=== PATIENT | male | born 1955 | race Caucasian/White ===

== ENCOUNTER 2022-01-24 12:16 | Emergency (ER) | payer OTHER, MEDICARE, SELFPAY ==
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
[2022-01-24 12:21] VITALS: BP 157/85; PULSE 82; RESP 18; TEMP 36.8; O2SAT 97
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
[2022-01-24 13:45] VITALS: BP 136/89; PULSE 76; RESP 18; TEMP 36.6; O2SAT 95
--- NOTE | 2022-01-24 17:35 | NUR.NOTE ---
Nursing Note: referral to cm for pcp
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
== END 2022-01-24 13:54 | disposition home or self-care (01) ==
LOC: ER 14:20
PROVIDERS: Emergency Provider Physician Assistant
DX: S29.9XXA Unspecified injury of thorax, initial encounter (principal); M79.7 Fibromyalgia; V89.2XXA Person injured in unspecified motor-vehicle accident, traffic, initial encounter; Y92.410 Unspecified street and highway as the place of occurrence of the external cause
CPT/HCPCS: 80053; 86900; 86901; 93005; 99284; 71046; 84484; 85025; 93010; 99285

== ENCOUNTER 2022-04-16 11:34 | Inpatient (IN) | payer OTHER, MEDICARE, SELFPAY ==
[2022-04-16] VITALS (13 sets, daily range): BP systolic 128–157; BP diastolic 82–97; PULSE 79–92; RESP 14–21; TEMP 36.2–37.4; O2SAT 97–98
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
--- NOTE | 2022-04-16 11:45 | RT.EKG_ITS ---
APPROVED REPORT Exam: Resting ECG Reason for Exam: Dizziness Patient Location: E HR:81 bpm ECG Measurements Heart Rate 81 AXIS OK 150 P 49 QRSd 94 QRS 26 QT 361 T 50 QTc 420 Conclusion Sinus rhythm...normal P axis, V-rate 60- 99 Normal [place] I have reviewed and interpreted ECG and agree with software generated interpretation. Normal Electrocardiogram
--- NOTE | 2022-04-16 12:00 | DI.MRI_ITS ---
Exam(s) MR BRAIN WO EXAM: MR BRAIN WO CLINICAL HISTORY: vertigo, unstable gait, double vision TECHNIQUE: Multiplanar multisequence MRI of the brain was performed. COMPARISON: CT CT HEAD - STROKE PROTOCOL from 04/16/2022 FINDINGS: The examination is limited due to patient motion artifact. VENTRICLES AND EXTRA AXIAL SPACES: Normal in size and morphology for the patient's age. MIDLINE SHIFT: None. CEREBRAL PARENCHYMA: No focus of restricted diffusion to suggest acute infarct. No space-occupying le kerrie identified. There are few areas of hyperintense signal seen in the white matter on the FLAIR and T2 weighted images consistent with small vessel ischemic disease. HEMORRHAGE: None. BRAINSTEM/CEREBELLUM: Normal. CALVARIUM: Normal. VISUALIZED PARANASAL SINUSES/MASTOIDS:Clear. [place]: Normal flow void. PIT[place]: Unremarkable. OTHER FINDINGS: None. IMPRESSION: 1. No acute intracranial process. No evidence of an acute infarct. 2. Findings were discussed with Dr. Ulrich on 04/16/2022. DATA REPOSITORY:
--- NOTE | 2022-04-16 12:00 | DI.CT_ITS ---
Exam(s) CT HEAD - STROKE PROTOCOL EXAM: CT HEAD - STROKE PROTOCOL CLINICAL HISTORY: vertigo, gait instability, double vision. TECHNIQUE: Imaging Protocol: Axial computed tomography images with coronal and sagittal reformatted images were created and reviewed COMPARISON: No exams were available for comparison FINDINGS: Ventricles and Extra axial spaces: Normal in size and morphology for the patient's age. Hemorrhage: None. Cerebral parenchyma: No acute territorial infarct is identified. 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 Midline shift: None. Brainstem/Cerebellum: Normal. Calvarium: Normal. Visualized Paranasal sinuses/Mastoids: Clear. Soft Tissues: Unremarkable. IMPRESSION: 1. No acute intracranial process. 2. Findings were discussed with Dr. Ulrich at 12:30 p.m. on 04/16/2022. RADIATION DOSE DELIVERED: 840.02mGy.cm Total DLP DATA REPOSITORY: All CT scans at this facility are submitted to the National Radiology Data Registry (NRDR) Dose Index Registry (DIR) with the [employer] (ACR). RADIATION OPTIMIZATION: All CT scans at this facility use at least one of these dose optimization te chniques: automated exposure control; mA and/or kV adjustment per patient size (includes targeted exa ms where dose is matched to clinical indication); or iterative reconstruction.
--- NOTE | 2022-04-16 12:00 | DI.MRI_ITS ---
Exam(s) MR ANGIO NECK WO EXAM: MR ANGIO NECK WO CLINICAL HISTORY: vertigo, unstable gait, double vision. TECHNIQUE: Multiplanar multisequence MRA of the Neck was performed. COMPARISON: CT brain from 04/16/2022. FINDINGS: Common Carotid: Right: No dissection, occlusion or significant stenosis. Left: No dissection, occlusion or significant stenosis. External Carotid: Right: No evidence of occlusion or significant stenosis. Left: No evidence of occlusion or significant stenosis. Internal Carotid: Right: No dissection, occlusion or significant stenosis. Left: No dissection, occlusion or significant stenosis. Vertebral Artery: Right: No dissection, occlusion or significant stenosis. Left: No dissection, occlusion or significant stenosis. The visualized paraspinal soft tissues are unremarkable. IMPRESSION: 1. No evidence of dissection, occlusion or significant stenosis. 2. Findings were discussed with Dr. Ulrich on 04/16/2022. DATA REPOSITORY:
--- NOTE | 2022-04-16 12:00 | DI.MRI_ITS ---
Exam(s) MR ANGIO BRAIN WO CLINICAL HISTORY: vertigo, unstable gait, double vision. TECHNIQUE: Multiplanar multisequence MRA of the brain was performed. COMPARISON: Comparison CT scan of the brain from 04/16/2022. FINDINGS: Carotid Arteries: No aneurysm, occlusion or significant stenosis. Anterior Cerebral Arteries: Right: No aneurysm, occlusion or significant stenosis. Left: No aneurysm, occlusion or significant stenosis. Middle Cerebral Arteries: Right: No aneurysm, occlusion or significant stenosis. Left: No aneurysm, occlusion or significant stenosis. Posterior Cerebral Arteries: Right: No aneurysm, occlusion or significant stenosis. Left: No aneurysm, occlusion or significant stenosis. Vertebral Arteries: Right: No aneurysm, occlusion or significant stenosis. Left: No aneurysm, occlusion or significant stenosis. Basilar Artery: No aneurysm, occlusion or significant stenosis. IMPRESSION: 1. No evidence of occlusion or significant stenosis on the MR angiography of the brain. 2. Findings were discussed with Dr. Ulrich on 04/16/2022. DATA REPOSITORY:
[2022-04-16 12:10] LABS: Abs Immature Grans 0.02 10^3/uL (0.0-0.06); Absolute Basophil Count 0.05 10^3/uL (0.0-0.2); Absolute Eosinophil Count 0.16 10^3/uL (0.0-0.7); Absolute Lymphocyte Count 1.56 10^3/uL (1.2-3.4); Absolute Monocyte Count 0.74 10^3/uL (0.1-0.8); Absolute Neutrophil Count 2.53 10^3/uL (1.2-6.7); Eosinophils % 3.2; HCT 47.4 % (40.0-50.0); HGB 16.2 g/dL (13.5-17.5); Immature Grans % 0.4; Lymphocytes % 30.8; MCH 30.7 pg (27.0-33.0); MCHC 34.2 % (32.0-36.0); MCV 90 fL (80-95); MPV 11.7 fL (8.0-11.0); Monocytes % 14.6; Platelet Count 197 10^3/uL (130-400); RBC 5.28 10^6/uL (4.36-5.78); RDW-SD 39.8 fL; WBC 5.06 10^3/uL (4.4-10.8)
[2022-04-16 12:29] LABS: ALT 34 U/L (16-63); AST 30 U/L (15-37); Albumin 4.2 g/dL (3.4-5.0); Alkaline Phosphatase 77 U/L (46-116); Anion Gap 6.9 mmol/L (3-11); BUN 14 mg/dL (7-18); Bilirubin, Total 0.8 mg/dL (0.2-1.0); CO2 27.1 mmol/L (21.0-32.0); CREATININE 1.1 mg/dL (0.70-1.30); Calcium 9.2 mg/dL (8.5-10.1); Chloride 105 mmol/L (98-107); Glucose 94 mg/dL (74-106); Sodium 139 mmol/L (136-145); Total Protein 7.5 g/dL (6.4-8.2)
[2022-04-16 12:38] LABS: *AMPHETAMINES SCREEN URINE Negative (Negative); *BARBITURATES SCREEN URINE Negative (Negative); *BENZODIAZEPINES SCREEN URINE Negative (Negative); Cannabinoids THC Negative (Negative); Cocaine Screen,Urine Negative (Negative); METHADONE URINE SCREEN Negative (Negative); OPIATES URINE SCREEN Negative (Negative)
[2022-04-16 12:39] LABS: Tricyclic Antidepressants Positive (Negative)
[2022-04-16] MEDS: Aspirin 81 MG CHEW 324 MG CH (12:42)
[2022-04-16] MEDS: Acetaminophen 500 MG TAB 1000 MG PO (13:53)
[2022-04-16 14:00] LABS: Source Nasal/Nares
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
--- NOTE | 2022-04-16 14:30 | DI.US_ITS ---
APPROVED REPORT EXAM: Comprehensive 2D, Doppler, and color-flow Echocardiogram Patient Location: In-Patient Room/Bed: [facility] Documentum Consultant: Noemy Hanson RDCS (AE) Indications: CVA Echo Enhancing Agent Indication: Rule out Shunt Agent(s) / Amount(s) Used: Agitated Saline 30.0 cc Comments: Contrast study was performed with 3 IV injections of 10ccs of agitated normal saline, at [facility], with cough and post valsalva maneuver. Negative contrast study for shunt flow. Other Information Study Quality: Adequate Conclusion Normal left ventricular wall thickness and chamber size. Estimated ejection fraction is 60%. Wall m otion is normal Normal right ventricular size and systolic function Both atria are normal in size No intracardiac shunt is identified with injection of agitated saline There are no structural valvular abnormalities There is mild mitral regurgitation Estimated right ventricular systolic pressure is 19 mmHg Wall motion Left Ventricle The left ventricle is normal size. The left ventricular systolic function is normal. The left ventric ular ejection fraction is within the normal range. There is normal left ventricular wall thickness. T here is normal LV segmental wall motion. There is no ventricular septal defect visualized. LVEF is 60 %. Right Ventricle The right ventricle is normal size. The right ventricular systolic function is normal. The RVSP is 19 .1 mmHg. Atria The left atrium size is normal. The right atrium size is normal. The interatrial septum is intact wit h no evidence for an atrial septal defect. Saline bubble contrast intravenous injection does not demo nstrate PFO. Aortic Valve The aortic valve is normal in structure. Aortic valve is trileaflet. There is no aortic valvular sten osis. No aortic regurgitation is present. Mitral Valve The mitral valve is normal in structure. No evidence of mitral valve stenosis. Mild mitral regurgitat ion. Tricuspid Valve The tricuspid valve is normal in structure. There is no tricuspid valve stenosis. Trace tricuspid reg urgitation. Pulmonic Valve The pulmonary valve is normal in structure. There is no pulmonic valvular stenosis. Trace pulmonic re gurgitation. Great Vessels The aortic root is normal in size. The ascending aorta is normal in size. Aortic arch is normal in ca liber. IVC is normal in size and collapses >50% with inspiration. Pericardium There is no pericardial effusion. 2D Dimensions IVSD d PLAX 1.03 cm M: 0.6-1.2 LV Vol A2C d MOD 95.2 mL LVPW d PLAX 1.03 cm M: 0.6 - 1.2 LV Vol A4C d MOD 98.8 mL LVID d PLAX 4.06 cm M: 4.2 - 5.8 LA vol/ BSA A2C s A-L 15.9 mL/m2 LVDs 2.65 cm M: 2.5 - 4.0 LA vol/ BSA A4C s A-L 16.3 mL/m2 Ao Root d 3.29 cm M: 3.1 - 3.7 LA Vol/ BSA Biplane s A-L 18.3 mL/m2 RA Area A4C 10.95 cm2 LA Area A4C s MOD 13.92 cm2 RA Vol/ BSA A4C s A-L 11.5 mL/m2 LA Area A2C s MOD 12.13 cm2 Ao Asc Diam d 3.35 cm M: 2.6 - 3.4 LV EF A4C MOD 61.1 % LV EF Teichholz 63.2 % LV EF A2C MOD 60.0 % LVEF (Fernandez's) 60.22 % M: 52 - 72 LV EF Biplane MOD 60.2 % LV Volume 73.72 mL M: 62 - 150 SV 60.17 mL LV Volume Index 35.10 mL/m2 M: 34 - 74 SV Index 28.61 mL/m2 LV Vol Biplane MOD 99.9 mL FS 33.80 % M-Mode TAPSE 2.55 cm (M/F) >1.7 LV Diastology MV E' medial 0.073 (>0.07 m/s) E/A Ratio 0.8 LV E/e MED 8.10 (<14) MV E Vmax 0.59 (0.4-1.3 m/s) MV E' lateral 0.111 (>0.1 m/s) MV A Vmax 0.75 (0.4-1.3 m/s) LV E/e LAT 5.35 (<14) MV E/A Ratio 0.77 MV E/E' medial 8.11 MV E/E' lateral 5.37 Aortic Valve LVOT Area 3.29 cm2 AoV Area Vmax 2.73 cm2 LVOT Vmax 1.13 m/s AoV Area/ BSA (Vmax) 1.30 cm2/m2 LVOT Mean Emil. 0.79 m/s BERNY Mean Emil. 2.68 cm2 LVOT Peak Grad 5.1 mmHg BERNY Mean Emil. Index 1.28 cm2/m2 LVOT Mean Grad 2.9 mmHg LVOT VTI 0.251 m LVOT Diam s 2.00 cm AoV Vmax 1.36 m/s Velocity Ratio 0.83 AoV Mean Emil. 0.97 m/s AoV Peak Grad 7.4 mmHg LVOT SV 82.43 mL AoV Mean Grad 4.2 mmHg AoV VTI 0.293 m AoV Area VTI 2.82 cm2 AoV Area/ BSA (VTI) 1.34 cm/m2 Mitral Valve MV DT 269 (160-240 msec) MR Vmax 6.03 m/s MV PHT 78 msec MR VTI 1.668 m MV Area PHT 2.82 cm2 MR Peak Grad 145.4 mmHg MV VTI 0.214 m MR Mean Grad 115.3 mmHg MV VTI Annulus 0.219 m MV Area VTI 3.93 (4.0-6.0 cm2) Pulmonary Valve PV Vmax 1.12 (0.5-1.5 m/s) RVOT Peak Gr. 2.23 mmHg PV Peak Grad 5.1 mmHg RVOT Mean Gr. 1.20 mmHg PV Mean Grad 2.4 mmHg RVOT VTI 0.157 m PV VTI 0.195 m RVOT Vmax 0.75 m/s Tricuspid Valve TR Peak Grad 16.0 mmHg TR Vmax 2.00 m/s RA Pressure 3.00 mmHg RVSP (TR) 19.1 mmHg
[2022-04-16 14:32] LABS: COVID-19 PCR Negative (Negative)
[2022-04-16] MEDS: Normal Saline 1,000 ML 75 ML IV (16:10)
[2022-04-16] MEDS: Enoxaparin 40 MG/0.4 ML SYR SC (16:10)
[2022-04-16] MEDS: Normal Saline Flush 10 ML SYR IVP (16:11)
[2022-04-16 16:19] LABS: Lab Add On Test DONE
[2022-04-16 16:53] LABS: ETHANOL BLOOD < 3.0 mg/dL (<10)
--- NOTE | 2022-04-16 17:06 | IN_ITS ---
Date of service: 04/16/22 Time of Service: 14:45 PT Notes Visit Reasons: Cerebrovascular accident Physical Therapy Inpatient Initial Evaluation Date: 04/16/2022 Referring Doctor: Radha Rodriguez NP PT Orders: PT CONSULT: D/C Non-PT dependent Precautions: Fall. Standard. Activity as tolerated. Patient Profile/Admitting Diagnosis: Rigoberto is a 66-year-old male who was referred from urgent care with report of right arm pain, double vision, dizziness, unsteady gait, and right-sided head pain. Patient is admitted to the MedSur unit for continued observation for a suspected posterior circulation stroke. PMHX: All Active Problems?(Updated 04/16/22 @ 13:19 by Lj Ulrich MD) Double vision (Acute) Unsteady gait (Acute) Medical History? Asthma Fibromyalgia Social History/Home Situation: Lives with in a private home with a ramp to enter. Independent with all aspects of ADLs prior to admission. Currently does not work. 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 Equipment Owned/DME: None Subjective: Rigoberto states that he has had some increasing pressure in the right eye area, right forehead, and right side of his head that has gone worse today which pro mpted the urgent care visit. He also has pain in his neck and right shoulder which he recalls were from a past injury years ago and are complicating his symptoms. He complains of dizziness when he looks down while we were walking. His said that he has had not much to eat since this morning, no lunch yet up to now. and daughter are in agreement with staying at the hospital until word from [facility] regarding his brain films have been received. traveling secretary/RUTH Lyndsey has been notified of need for dietary staff to come to provide snacks/meal for patient. Patient adds that he has had some issues with his balance before but nothing that would cause him to fall. His two falls in the past year were because of tripping on something. Objective: General Observation: Seated at edge of bed. IV access in R UE. Appears mildly anxious. Mental Status: Alert and oriented as to person and place. Able to pay attention, needed some repetition with instructions during strength testing and balance testing. Appeared mildly confused. Pain: Pressure in R upper side of face and head at 3-4/10 pain scale Vital Signs: WNL as recently taken by nursing staff ROM: Right Upper Extremity: Shoulder Flexion lacks the last 25% of AROM due to previous injury. Shoulder abduction lacks the last 25% of AROM due to previous injury. Elbow flexion WFL. Wrist flexion WFL. Functional opening and closing of hand WFL. Left Upper Extremity: Shoulder Flexion WFL. Shoulder abduction WFL. Elbow flexion WFL. Wrist flexion WFL. Functional opening and closing of hand WFL. Right Lower Extremity: Hip flexion WFL. Hip abduction WFL. Knee flexion WFL. Ankle dorsiflexion WFL. Ankle plantarflexion WFL. Left Lower Extremity: Hip flexion WFL. Hip abduction WFL. Knee flexion WFL. Ankle dorsiflexion WFL. Ankle plantarflexion WFL. Strength: Right Upper Extremity: Shoulder flexors 3-/5. Shoulder abductors 3-/5. Elbow flexors 4/5. Elbow extensors 4/5. Electronics Engineering Professor strong. Left Upper Extremity: Shoulder flexors 3-/5. Shoulder abductors 3-/5. Elbow flexors 4/5. Elbow extensors 4/5. Electronics Engineering Professor strong. Right Lower Extremity: Hip flexors 5/5. Hip abductors 5/5. Knee flexors 5/5. Knee extensors 5/5. Ankle dorsiflexors 5/5. Ankle plantarflexors 5/5. Left Lower Extremity: Hip flexors 5/5. Hip abductors 5/5. Knee flexors 5/5. Knee extensors 5/5. Ankle dorsiflexors 5/5. Ankle plantarflexors 5/5. Bed Mobility/Transfers: Sit to stand supervision with no AD Stand to sit supervision with no AD Gait: Instructed patient with level surface ambulation of 100 feet requiring stand by assist. No assistive device needed. Gait pattern unremarkable except for a slowed gait pace as patient feels dizzy when looking down. Turning around is slowed but no loss of balance. Mild shortness of breath that resolved after activity. Balance: Static Sitting: Normal Dynamic Sitting: Normal Static Standing: Good Dynamic Standing: Good Special Tests: Mobility Limitations Standardized Measure [facility] 6 clicks Basic Mobility Inpatient Short Form: Raw Score: 22 CMS Score: 21% deficit NEURO: Normothermic B UE/LE. Normotonic B UE/LE. Romberg Test: Very minimal sway but no loss of balance 30-second chair rise: 5 with report of shortness of breath needing to stop right away, SOB resolved within 1 minute of rest 4-Stage Balance Test: Able to do feet together and semi-tandem for 10 seconds. Does not feel safe doing full tandem and one-legged stance. Rapid alternating movement: mildly impaired Informed Consent/Education: Patient was instructed in purpose of PT consult and plan of care. Agreeable to proceed with established PT POC to achieve personal goals. Assessment: Strength in B UE/LE symmetric except in the site of previous injury in the R shoulder. Pressure in head di not worsen with sit<>stand test nor did it go up with bedning down to put his shoes on. Did not see wide based gait for this evaluation. Patient did feel that his walking speed may have slowed down a bit and that he feels dizzy when he looks down. He did not report any dizziness while seated at edge of bed and bending down to put his shoes on. His inability to perform rapid alternating movement may be due to some confusion he has rather than some actual brain issue. Hunger may also have played a role in limiting his ability to participate and perform for this assessment. Patient presents with clinical signs and symptoms consistent with current/admitting diagnoses that have resulted to mobility limitations, gait instability, generalized weakness, and overall ADL decline as demonstrated by the following impairment level findings: 1. Decreased strength to R shoulder muscles due to previous injury 2. Impaired standing balance (see test abbove) 3. Impaired activity tolerance 4. Limitation of joint range of motion in R shoulder 5. Shortness of breath from pre-existing COPD 6. Mild confusion Impairments are contributing to the following functional limitations: 1. Increased completion time for mobility ADL performance 2. Increased risk for falls Patient is assessed as a 01970 moderate complexity based on the following: History: 66-year-old male with past medical history as indicated above Examination: Demonstrable impairment in strength, balance, and mobility level with underlying impairments and functional limitations as exhibited above as well as deficit score of 21% utilizing the [facility] Mobility Inpatient Short Form Presentation: Decision Makin moderate complexity Goals: Goals X1 week 1. Supine-Sit independent 2. Sit-Supine independent 3. Sit-Stand independent 4. Stand-Sit independent with no AD 5. Bed-Chair independent with no AD 6. Chair-Bed independent with no AD 7. Independent gait on level surface with use of no AD for at least 300 feet without report of pain nor dyspnea 8. Good static and dynamic standing balance/tolerance Plan of Care/Treatment Plan: 1-2x/day, 7 days/week x 1 week. Plan of care has been reviewed with the HOME ENERGY CONSULTANT SUPERVISOR providing the service under Physical Therapy direction. Initiate Physical Therapy intervention for pain management as needed, strengthening, bed mobility, transfers, gait, stairs, balance training, and use of assistive device. DISCHARGE RECOMMENDATIONS: [] Home with no services [] [] Home with services [specify] [] Home with outpatient PT [] [] SNF for continued rehabilitation [] [] [facility] [] [] SNF versus LTC based on ability to participate and progress [] [X] OP PT vs. no services depending on medical diagnosis/status and progress toward goals TREATMENT CODE/TIME: 81478 x 20 minutes, 42115 x 12 minutes beginning at 15:54 PM. Thank you for the opportunity to participate in the care of this patient. Karley Lamar PT, DPT, CLT [facility] [place], [place]
[2022-04-16] MEDS: THIAMINE 500 MG in Normal Saline 100 ML 200 MG IVPB (18:10)
[2022-04-16] MEDS: Pravastatin 40 MG TAB 80 MG PO (19:39)
[2022-04-16] MEDS: Budesonide/Formoterol 160/4.5 6 GM 60 PUFF INH IH (19:40)
[2022-04-16] MEDS: LORazepam 1 MG TAB PO/SL (19:50)
[2022-04-16] MEDS: Omeprazole 20 MG CAPCR PO (21:37)
[2022-04-17] VITALS (15 sets, daily range): BP systolic 128–157; BP diastolic 80–96; PULSE 72–92; RESP 15–20; TEMP 36.2–37; O2SAT 95–98
--- NOTE | 2022-04-17 | DI.RAD_ITS ---
Exam(s) XR SHOULDER RT COMPLETE 2+V EXAM: XR SHOULDER RT COMPLETE 2+V CLINICAL HISTORY: Pain right shoulder. TECHNIQUE: 2D digital imaging was performed. COMPARISON: No exams were available for comparison FINDINGS: No evidence of fracture or dislocation nor abnormal soft tissue calcifications. No degenerative meek ges. No osseous lesions. Clavicle intact. IMPRESSION: No significant osseous findings. DATA REPOSITORY: RADIATION DOSE DELIVERED:
[2022-04-17] MEDS: THIAMINE 500 MG in Normal Saline 100 ML 200 MG IVPB ×3 (01:14→18:04)
[2022-04-17] MEDS: Normal Saline 1,000 ML 75 ML IV (05:37)
[2022-04-17 06:50] LABS: Abs Immature Grans 0.02 10^3/uL (0.0-0.06); Absolute Basophil Count 0.03 10^3/uL (0.0-0.2); Absolute Eosinophil Count 0.14 10^3/uL (0.0-0.7); Absolute Lymphocyte Count 1.27 10^3/uL (1.2-3.4); Absolute Monocyte Count 0.56 10^3/uL (0.1-0.8); Basophils % 0.6; Eosinophils % 2.7; HCT 45.4 % (40.0-50.0); HGB 15.7 g/dL (13.5-17.5); Immature Grans % 0.4; Lymphocytes % 24.3; MCHC 34.6 % (32.0-36.0); MCV 90 fL (80-95); MPV 11.6 fL (8.0-11.0); Monocytes % 10.7; Neutrophils % 61.3; Platelet Count 176 10^3/uL (130-400); RBC 5.06 10^6/uL (4.36-5.78); RDW 12.1 % (11.8-14.1); RDW-SD 39.7 fL; WBC 5.22 10^3/uL (4.4-10.8)
[2022-04-17 07:26] LABS: Anion Gap 6.8 mmol/L (3-11); BUN 13 mg/dL (7-18); CO2 27.2 mmol/L (21.0-32.0); Calcium 9.2 mg/dL (8.5-10.1); Calculated LDL 98 mg/dL (<100); Chloride 104 mmol/L (98-107); Cholesterol 160 mg/dL (<200); Estimated GFR 83.52 (mL/min/1.73m2); Glucose 102 mg/dL (74-106); HDL Cholesterol 45 mg/dL (40-60); Magnesium 1.9 mg/dL (1.8-2.4); Sodium 138 mmol/L (136-145); TSH 2.61 uIU/mL (0.36-3.74); Triglyceride 85 mg/dL (<150)
[2022-04-17] MEDS: Budesonide/Formoterol 160/4.5 6 GM 60 PUFF INH IH ×2 (07:49→19:19)
[2022-04-17 08:03] LABS: Hemoglobin A1C 5.1 % (<5.7)
[2022-04-17] MEDS: Docusate Sodium 100 MG CAP PO (08:18)
[2022-04-17] MEDS: Enoxaparin 40 MG/0.4 ML SYR SC (08:18)
[2022-04-17] MEDS: Aspirin 325 MG TAB PO (08:18)
[2022-04-17] MEDS: FLUoxetine 20 MG CAP PO (08:18)
--- NOTE | 2022-04-17 09:02 | INITIAL_ITS ---
- If Service Date Differs Date of service: 04/17/22 Time of Service: 09:02 Care Management Initial Assess REASON FOR HOSPITALIZATION:: altered mental status PAST MEDICAL HISTORY/PAST SURGICAL HISTORY:: All Active Problems (Updated 04/16/22 @ 19:49 by Radha Rodriguez NP). Altered mental status (Acute). Facial droop (Acute). Alcohol abuse (Chronic). Discharge planning issues (Acute). DVT prophylaxis (Acute). Double vision (Acute). Unsteady gait (Acute). Medical History . Asthma. Fibromyalgia. Surgical History . No significant past surgical history PREVIOUS FUNCTIONAL STATUS/SOCIAL/FAMILY SUPPORTS:: Rigoberto lives in [place] with his Larisa. He has 5 children and 13 grandchildren. 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 Rigoberto has dementia but is independent with ADLs. He does not require any ambulatory assistance nor does he receive any community services. CURRENT FUNCTIONAL STATUS:: Rigoberto was sitting up in a chair visiting with his and daughter Nichole when CM met with him. At one point he was taken to Medical Imaging and his and daughter took the opportunity to share concerns about Rigoberto's memory loss, confusion and alcohol consumption. They shared that he drinks at least 5 large drinks per day, mostly red wine. They were provided with information for substance use treatment. [place] [facility] [place] participated in the conversation but did not discuss his drinking. There was a conversation about possibly attending the [facility] a couple of days a week and he seemed agreeable. Of note, Rigoberto's short term memory is imp aired and he did not offer much conversation, deferring to the others to answer most questions.. ADVANCE DIRECTIVES:: none on file at [facility] Has patient been provided with info about the portal/API?: Yes Did the patient sign up for the portal?: No CODE STATUS:: Full Code INSURANCE COVERAGE / FINANCIAL ISSUES:: [employer]. Medicare PRIMARY CARE PHYSICIAN:: Jacque Lassiter POTENTIAL DISCHARGE NEEDS:: follow up with PCP , possibly neurology and plan of care PATIENT/FAMILY EDUCATION NEEDS:: Review of discharge instructions, activity, limitations, follow up plan, discuss Ask Me [employer] TRANSPORTATION:: via private vehicle with family PLAN:: Anticipate Rigoberto will discharge home with no new services. He will follow up with his community providers and plan of care and transport with family. CM will follow and assess for discharge concerns.
[2022-04-17] MEDS: LORazepam 2 MG/ML VIAL 1 MG IVP (10:49)
[2022-04-17] MEDS: Normal Saline Flush 10 ML SYR IVP (10:49)
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
[2022-04-17 12:20] LABS: Lab Add On Test DONE
[2022-04-17 13:03] LABS: Folate 19.7 ng/mL (8.6-20.0); Vitamin B12 860 pg/mL (193-986)
--- NOTE | 2022-04-17 13:20 | DI.VRAD_ITS ---
PROCEDURE INFORMATION: Exam: XR Right Shoulder Exam date and time: 04/17/2022 1:12 PM Age: 66 years old Clinical indication: Other: Pain right shoulder TECHNIQUE: Imaging protocol: Radiologic exam of the Right shoulder. Views: 2 or more views. COMPARISON: 1. MR ANGIO NECK WO 04/16/2022 12:56 PM 2. CR XR CHEST 2V PA LATERAL 01/24/2022 1:01 PM FINDINGS: Bones/joints: Normal. Soft tissues: Normal. IMPRESSION: No acute findings. Dictated and Authenticated by: Dainel Connolly MD. Ordering:LEYDI Garcia MD
--- NOTE | 2022-04-17 14:15 | PT.INTREAT ---
Date of service: 04/17/22 Time of Service: 11:40 PT Notes Visit Reasons: Cerebrovascular accident Inpatient Physical Therapy Treatment Note [facility] Date: 04/17/2022 PRECAUTIONS: Fall. Standard. Activity as tolerated. SUBJECTIVE: Vision is still his biggest problem, makes him feel out of balance. OBJECTIVE: PAIN: No reported pain BED MOBILITY/TRANSFERS Sit-stand: CGA Stand-sit: CGA GAIT Assistive Device: No device Weight bearing: full Assist: CGA Distance: 300ft, with nurse pushing w/c behind us. No complaints of SOB Deviation: Tends to deviate backward when standing occasionally. THEREX: Discussed keeping arms (shoulder horizontal abd/add, left UE bicep curls, shoulder flexion from neutral to 80-90 degrees) and legs (LAQs, hip abd/add, marching in chair) moving when sitting in chair or lying bed. Worked on static standing balance with feet together and partial tandem utilizing rhythmic stabilization at shoulders and back/ chest. Also, had patient try SLS activity with hands lightly on back of chair. Unable to perform SLS without at least one hand on chair, but able to hold SLS position with UE assistance for approximately 5-10 seconds each. ASSESSMENT: Due think CGA/ SBA with walking would be advisable at this time due to poor balance, to avoid possible falls. May try use of FWW tomorrow to see if this offers better stability. PLAN: Continue with current POC with focus on improved balance and mobility training for ADL function. TREATMENT CODE/TIME: Ther Activity ([id number]), 11:40 to 12:00
[2022-04-17] MEDS: chlordiazePOXIDE 25 MG CAP PO ×2 (14:55→20:04)
[2022-04-17] MEDS: Pravastatin 40 MG TAB 80 MG PO (20:05)
[2022-04-17] MEDS: Omeprazole 20 MG CAPCR PO (21:33)
[2022-04-17] MEDS: LORazepam 1 MG TAB PO/SL (21:33)
[2022-04-18] VITALS (10 sets, daily range): BP systolic 119–141; BP diastolic 79–93; PULSE 86–101; RESP 16–19; TEMP 36.5–36.9; O2SAT 96–99
[2022-04-18] MEDS: THIAMINE 500 MG in Normal Saline 100 ML 200 MG IVPB ×3 (01:09→18:02)
[2022-04-18] MEDS: Normal Saline Flush 10 ML SYR IVP (01:10)
[2022-04-18 06:51] LABS: Abs Immature Grans 0.02 10^3/uL (0.0-0.06); Absolute Basophil Count 0.02 10^3/uL (0.0-0.2); Absolute Eosinophil Count 0.14 10^3/uL (0.0-0.7); Absolute Monocyte Count 0.58 10^3/uL (0.1-0.8); Absolute Neutrophil Count 2.81 10^3/uL (1.2-6.7); Basophils % 0.4; Eosinophils % 2.9; HCT 46.6 % (40.0-50.0); HGB 15.6 g/dL (13.5-17.5); Immature Grans % 0.4; Lymphocytes % 26.7; MCH 30.2 pg (27.0-33.0); MCHC 33.5 % (32.0-36.0); MCV 90 fL (80-95); MPV 11.9 fL (8.0-11.0); Monocytes % 11.9; Neutrophils % 57.7; Platelet Count 195 10^3/uL (130-400); RBC 5.16 10^6/uL (4.36-5.78); RDW-SD 39.8 fL; WBC 4.87 10^3/uL (4.4-10.8)
[2022-04-18 07:13] LABS: Anion Gap 7.1 mmol/L (3-11); BUN 13 mg/dL (7-18); CO2 28.9 mmol/L (21.0-32.0); CREATININE 1.1 mg/dL (0.70-1.30); Calcium 9.7 mg/dL (8.5-10.1); Chloride 104 mmol/L (98-107); Glucose 107 mg/dL (74-106); Magnesium 2.1 mg/dL (1.8-2.4); Potassium 4.2 mmol/L (3.5-5.1); Sodium 140 mmol/L (136-145)
[2022-04-18] MEDS: Docusate Sodium 100 MG CAP PO ×3 (07:51→21:14)
[2022-04-18] MEDS: Enoxaparin 40 MG/0.4 ML SYR SC (07:51)
[2022-04-18] MEDS: Aspirin 325 MG TAB PO (07:52)
[2022-04-18] MEDS: FLUoxetine 20 MG CAP PO (07:52)
[2022-04-18] MEDS: chlordiazePOXIDE 25 MG CAP PO ×3 (07:52→21:14)
[2022-04-18] MEDS: Budesonide/Formoterol 160/4.5 6 GM 60 PUFF INH IH (08:22)
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
--- NOTE | 2022-04-18 12:47 | PT.INTREAT ---
Date of service: 04/18/22 Time of Service: 08:50 PT Notes Visit Reasons: Cerebrovascular accident Inpatient Physical Therapy Treatment Note [facility] Date: 04/18/2022 PRECAUTIONS: Fall. Standard. Activity as tolerated. SUBJECTIVE: Vision is continues to be his biggest complaint, right eye vision seems dark. OBJECTIVE: ? PAIN: Complaining of right shoulder pain which he is having checked in near future, has had trouble getting a new PCP since moving here. Mild right head pain. ? BED MOBILITY/TRANSFERS? Sit-stand: CGA? Stand-sit: CGA ? GAIT? Assistive Device: No device ? Weight bearing: full Assist: CGA? Distance:? 300ft, no complaints of SOB? Deviation: Occasionally sways backward, but is able to self correct. Did have patient work on movement of head right and left with ambulation today and was able to maintain balance with this. Able to go up/ down 2 6 inch and 3 4 inch steps with use of handrail and SBA.? NEURO RE-ED? Worked on static standing with feet together, partial tandem with eyes closed, able to demonstrate 10 second stance with eyes closed with SBA. SLS was able to perform for 3 reps x 5 seconds each LE with contact guard, once he finds his center of gravity, is able to do without holding on to railing today. Dynamic balance activities included side stepping to right/ left, backward ambulation and modified heel to toe for 10ft, with CGA. Performed marching for 10 reps without holding on to railing and standing hip abduction x 10 reps with one hand on railing. ? ASSESSMENT:? Appeared to be more dominic with ambulation today. Indicated that his balance has been an issue for some time now. PLAN: Continue with current POC with focus on improved balance and mobility training for ADL function. TREATMENT CODE/TIME: Ther Activity (41895p4) Neuro Re-ed ([id number]), 8:50 to 9:20
[2022-04-18] MEDS: Omeprazole 20 MG CAPCR PO (21:14)
[2022-04-18] MEDS: Pravastatin 40 MG TAB 80 MG PO (21:14)
[2022-04-19] VITALS (8 sets, daily range): BP systolic 120–152; BP diastolic 80–85; PULSE 66–91; RESP 14–18; TEMP 36–36.7; O2SAT 96–98
--- NOTE | 2022-04-19 | DI.CT_ITS ---
Exam(s) CT CHEST W EXAM: CT CHEST W CLINICAL HISTORY: Rule out thymus tumor TECHNIQUE: Imaging Protocol: Axial computed tomography images with coronal and sagittal reformatted images were created and reviewed CONTRAST MATERIAL: Intravenous: Omnipaque 350 Contrast volume:70 cc COMPARISON: CR,XR XR CHEST 2V PA LATERAL from 01/24/2022 FINDINGS: Pulmonary parenchyma: Minimal basilar scarring versus atelectasis. No consolidation. No dominant me asurable mass. No suspicious pulmonary nodules. Tracheobronchial tree: No bronchiectasis or mucous plugging. Mediastinum and Lucy: No dominant adenopathy or fluid collection. No evidence of a thymic mass. Pleura: No effusion or pneumothorax. Heart: The heart is not dilated. Mild coronary artery calcifications are seen. Aorta: Thoracic aorta non-dilated. Upper abdomen: Large quantity of stool noted in transverse colon. Bones: Milddegenerative changes. Soft tissues: Unremarkable. IMPRESSION: No evidence of thymic mass. RADIATION DOSE DELIVERED: 603.77mGy.cm Total DLP DATA REPOSITORY: All CT scans at this facility are submitted to the National Radiology Data Registry (NRDR) Dose Index Registry (DIR) with the [employer] ([employer]). RADIATION OPTIMIZATION: All CT scans at this facility use at least one of these dose optimization te chniques: automated exposure control; mA and/or kV adjustment per patient size (includes targeted exa ms where dose is matched to clinical indication); or iterative reconstruction.
[2022-04-19] MEDS: Normal Saline Flush 10 ML SYR IVP ×2 (01:07→12:30)
[2022-04-19] MEDS: THIAMINE 500 MG in Normal Saline 100 ML 200 MG IVPB ×2 (01:07→09:28)
[2022-04-19 07:12] LABS: Abs Immature Grans 0.02 10^3/uL (0.0-0.06); Absolute Basophil Count 0.04 10^3/uL (0.0-0.2); Absolute Eosinophil Count 0.16 10^3/uL (0.0-0.7); Absolute Monocyte Count 0.53 10^3/uL (0.1-0.8); Absolute Neutrophil Count 2.48 10^3/uL (1.2-6.7); Basophils % 0.9; Eosinophils % 3.5; HCT 45.4 % (40.0-50.0); HGB 15.2 g/dL (13.5-17.5); Immature Grans % 0.4; Lymphocytes % 30.2; MCHC 33.5 % (32.0-36.0); MCV 90 fL (80-95); MPV 12.4 fL (8.0-11.0); Monocytes % 11.4; Neutrophils % 53.6; Platelet Count 164 10^3/uL (130-400); RBC 5.06 10^6/uL (4.36-5.78); RDW 11.9 % (11.8-14.1); RDW-SD 39.2 fL; WBC 4.63 10^3/uL (4.4-10.8)
[2022-04-19] MEDS: Enoxaparin 40 MG/0.4 ML SYR SC (07:26)
[2022-04-19] MEDS: chlordiazePOXIDE 25 MG CAP PO ×2 (07:27→13:25)
[2022-04-19] MEDS: FLUoxetine 20 MG CAP PO (07:27)
[2022-04-19] MEDS: Aspirin 325 MG TAB PO (07:27)
[2022-04-19 07:34] LABS: Anion Gap 8.6 mmol/L (3-11); BUN 15 mg/dL (7-18); CO2 26.4 mmol/L (21.0-32.0); CREATININE 1.1 mg/dL (0.70-1.30); Calcium 9.4 mg/dL (8.5-10.1); Chloride 103 mmol/L (98-107); Glucose 107 mg/dL (74-106); Magnesium 1.9 mg/dL (1.8-2.4); Potassium 3.8 mmol/L (3.5-5.1); Sodium 138 mmol/L (136-145)
[2022-04-19] MEDS: Budesonide/Formoterol 160/4.5 6 GM 60 PUFF INH IH (07:45)
--- NOTE | 2022-04-19 10:19 | PTTR_ITS ---
Date of service: 04/19/22 Time of Service: 09:44 PT Notes Visit Reasons: Cerebrovascular accident Inpatient Physical Therapy Treatment Note [facility] Date: 04/19/2022 PRECAUTIONS: Fall, activity as tolerated SUBJECTIVE: Yousif is pleasant and agreeable to participating in PT. He reports that he is feeling better and much steadier. He continues to report double vision. OBJECTIVE: Patient is observed ambulating without an AD in hallways with his earlier today. Patient cleared for independent transfers and short- distance ambulation within room at this time. ? PAIN: No c/o pain ? BED MOBILITY/TRANSFERS? Sit-stand: I ? Stand-sit: I ? GAIT? Assistive Device: No AD? Weight bearing: Full Assist: Supervision? Distance:? 700'? Deviation: Gait unremarkable Neuro Re-Education: Patient instructed in a static/dynamic standing balance retraining program to improve balance, coordination, kinesthetic and proprio ceptive sensations. ? Treatment: Feet together eyes open, feet together eyes closed, both with and without upper body perturbations, tandem stance L and R, SLS L and R, all tolerated >10 secs with CGA. Initiated backward walking 4x10' with CGA. ? ASSESSMENT:? Patient tolerated session without complaint. He was able to tolerate a progression in gait distance without AD support and with supervision. He demonstrates independence with transfers and short-distance gait at this time. PLAN: Patient to discharge later today, per provider. Recommend follow up with outpatient PT for continued neuro re-ed. TREATMENT CODE/TIME: 24 minutes; [id number], [id number] (09:44)
--- NOTE | 2022-04-19 10:45 | PDOC.CMDIS ---
- If Service Date Differs Date of service: 04/19/22 Time of Service: 10:45 LACE Index Scoring Tool - Questions: Length of Stay (in days): 3 Acuity (Admit via E.D.?): Yes E.D. Visits: 2 - Answers: Total Score: 8 Risk of Readmission: Low Risk Care Management Discharge Reason for Hospitalization: altered mental status Discharge Plan: Rigoberto will discharge home with no new services. He will follow up with his community providers and plan of care and transport with family. Patient/Family Education Needs: Review of discharge instructions, activity, limitations, follow up plan, discuss Ask Me Three
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
[2022-04-19] MEDS: Ketorolac 30 MG/ML VIAL IVP (12:30)
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
[2022-04-19 12:53] LABS: Lyme Ab w Rflx to Lyme Confirm Positive (Negative)
[2022-04-19] MEDS: busPIRone 5 MG TAB PO (13:25)
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
[2022-04-19 14:04] LABS: Lyme IgG Ab Positive (Negative); Lyme IgM Ab Negative (Negative)
[2022-04-19] MEDS: Omnipaque 350 MG/ML 100 ML BTL IJ (14:04)
[2022-04-19] MEDS: Normal Saline - Diluent 50 ML VIAL IJ (14:05)
[2022-04-21 15:22] LABS: Anaplasma phagocytophilum Negative (Negative); B. miyamotoi PCR Negative (Negative); Babesia divergens/MO-1 Negative (Negative); Babesia duncani Negative (Negative); Babesia microti Negative (Negative); Ehrlichia chaffeensis Negative (Negative); Ehrlichia ewingii/canis Negative (Negative); Ehrlichia muris eauclairensis Negative (Negative)
--- NOTE | 2022-04-22 08:42 | INDS_ITS ---
Date of service: 04/19/22 PT Notes Visit Reasons: Cerebrovascular accident Physical Therapy Inpatient Discharge Summary Date: 04/19/2022: Dates of Service: 04/16/2022 through 04/19/2022 This is a clinical summary of care provided for the duration of dates listed above. No charge was made in the completion of this documentation. Referring Doctor:Jayshree Rodriguez NP PT Orders: PT CONSULT: D/C Non-PT dependent Precautions: Fall. Standard. Activity as tolerated. Patient Profile/Admitting Diagnosis:? Rigoberto is a 66-year-old male who was referred from urgent care with report of right arm pain, double vision, dizziness, unsteady gait, and right-sided head pain.? Patient is admitted to the Medr unit for continued observation for a suspected posterior circulation stroke.? PMHX: All Active Problems?(Updated 04/16/22 @ 13:19 by Lj Ulrich MD) Double vision (Acute) Unsteady gait (Acute) Medical History? Asthma Fibromyalgia Social History/Home Situation: Lives with in a private home with a ramp to enter.? Independent with all aspects of ADLs prior to admission.? Currently does not work.? 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 Equipment Owned/DME: None Subjective: NT. See most recent STATISTICAL CONSULTANT notes. Objective: General Observation: NT. See most recent STATISTICAL CONSULTANT notes. Mental Status: NT. See most recent STATISTICAL CONSULTANT notes. Pain: NT. See most recent STATISTICAL CONSULTANT notes. Vital Signs: NT. See most recent STATISTICAL CONSULTANT notes. ROM: Right Upper Extremity: ? Shoulder Flexion lacks the last 25% of AROM due to previous injury. Shoulder abduction lacks the last 25% of AROM due to previous injury. Elbow flexion WFL. Wrist flexion WFL. Functional opening and closing of hand WFL. Left Upper Extremity:? Shoulder Flexion WFL. Shoulder abduction WFL. Elbow flexion WFL. Wrist flexion WFL. Functional opening and closing of hand WFL. Right Lower Extremity: Hip flexion WFL. Hip abduction WFL. Knee flexion WFL. Ankle dorsiflexion WFL. Ankle plantarflexion WFL. Left Lower Extremity: Hip flexion WFL. Hip abduction WFL. Knee flexion WFL. Ankle dorsiflexion WFL. Ankle plantarflexion WFL. Strength: Right Upper Extremity: Shoulder flexors 3-/5. Shoulder abductors 3-/5. Elbow flexors 4/5. Elbow extensors 4/5. Forensic Manager strong. Left Upper Extremity: Shoulder flexors 3-/5. Shoulder abductors 3-/5. Elbow flexors 4/5. Elbow extensors 4/5. Forensic Manager strong. Right Lower Extremity: Hip flexors 5/5. Hip abductors 5/5. Knee flexors 5/5. Knee extensors 5/5. Ankle dorsiflexors 5/5. Ankle plantarflexors 5/5. Left Lower Extremity: Hip flexors 5/5. Hip abductors 5/5. Knee flexors 5/5. Knee extensors 5/5. Ankle dorsiflexors 5/5. Ankle plantarflexors 5/5. BED MOBILITY/TRANSFERS? Sit-stand: I ? Stand-sit: I ? GAIT? Assistive Device: No AD? Weight bearing: Full Assist: Supervision? Distance:? 700'? Deviation: Gait unremarkable Balance: Static Sitting: Normal Dynamic Sitting: Normal Static Standing: Good Dynamic Standing: Good NEURO: Normothermic B UE/LE. Normotonic B UE/LE. Romberg Test: Very minimal sway but no loss of balance 30-second chair rise: 5 with report of shortness of breath needing to stop right away,? SOB resolved within 1 minute of rest 4-Stage Balance Test: Able to do feet together and semi-tandem for 10 seconds.? Does not feel safe doing full tandem and one-legged stance. Rapid alternating movement: mildly impaired Assessment: Strength in B UE/LE symmetric except in the site of previous injury in the R shoulder.? Pressure in head di not worsen with sit<>stand test nor did it go up with bedning down to put his shoes on.? Did not see wide based gait for this evaluation.? Patient did feel that his walking speed may have slowed down a bit and that he feels dizzy when he looks down.? He did not report any dizziness while seated at edge of bed and bending down to put his shoes on.? His inability to perform rapid alternating movement may be due to some confusion he has rather than some actual brain issue.? Hunger may also have played a role in limiting his ability to participate and perform for this assessment. Patient presents with clinical signs and symptoms consistent with current/admitting diagnoses that have resulted to mobility limitations, gait instability, generalized weakness, and overall ADL decline as demonstrated by the following impairment level findings: 1.? Decreased strength to R shoulder muscles due to previous injury 2.? Impaired standing balance (see test abbove) 3.? Impaired activity tolerance 4.? Limitation of joint range of motion in R shoulder 5.? Shortness of breath from pre-existing COPD 6.? Mild confusion Impairments are contributing to the following functional limitations: 1.? Increased completion time for mobility ADL performance 2.? Increased risk for falls Patient is assessed as a 80302 moderate complexity based on the following: History: 66-year-old male with past medical history as indicated above Examination: Demonstrable impairment in strength, balance, and mobility level with underlying impairments and functional limitations as exhibited above as well as deficit score of 21% utilizing the [facility] Mobility Inpatient Short Form Presentation: Decision Makin moderate complexity Goals: Goals X1 week 1. Supine-Sit independent MET 2. Sit-Supine independent MET 3. Sit-Stand independent MET 4. Stand-Sit independent with no AD MET 5. Bed-Chair independent with no AD MET 6. Chair-Bed independent with no AD MET 7. Independent gait on level surface with use of no AD for at least 300 feet without report of pain nor dyspnea NOT MET 8. Good static and dynamic standing balance/tolerance NOT MET DISCHARGE RECOMMENDATIONS: [] ? Home with no services [] [] ? Home with services [specify] [] ? Home with outpatient PT [] [] ? SNF for continued rehabilitation [] [] ? Intermediate Care [] [] ? SNF versus LTC based on ability to participate and progress [] [X] ? OP PT vs. no services depending on medical diagnosis/status and progress toward goals TREATMENT CODE/TIME: PR Thank you for the opportunity to participate in the care of this patient. Karley Lamar PT, DPT, CLT [facility] [place], [place]
== END 2022-04-19 16:09 | disposition home or self-care (01) | DRG 641 ==
LOC: ER 13:19 → MS 14:03
PROVIDERS: Nurse Practitioner Family; Admitting Provider Internal Medicine; Emergency Provider Emergency Medicine; PCP Student in an Organized Health Care Education/Training Program; Visit Provider Internal Medicine
DX: E51.2 Wernicke's encephalopathy (principal); F10.139 Alcohol abuse with withdrawal, unspecified; A69.20 Lyme disease, unspecified; H53.2 Diplopia; R26.81 Unsteadiness on feet; R29.810 Facial weakness; J45.909 Unspecified asthma, uncomplicated; M79.7 Fibromyalgia; M25.511 Pain in right shoulder; H02.401 Unspecified ptosis of right eyelid; F41.9 Anxiety disorder, unspecified; G70.00 Myasthenia gravis without (acute) exacerbation; I77.1 Stricture of artery; R56.9 Unspecified convulsions; G43.909 Migraine, unspecified, not intractable, without status migrainosus
CPT/HCPCS: 36415; 36416; 70544; 70547; 80048; 80053; 80061; 80307; 82962; 86617; 87635; 87798; 93005; 94640; 97112; 97162; 97530; 99285; J1650; 70450; 70551; 71260; 73030; 80320; 82607; 82746; 83036; 83519; 83735; 84443; 84484; 85025; 86618; 93010; 93306; 99223; 99232; 99239; J1885; J2060; J3490

== ENCOUNTER 2022-04-23 00:42 | Outpatient (CLI) | payer OTHER, MEDICARE, SELFPAY ==
--- NOTE | 2022-04-23 08:15 | DI.MRI_ITS ---
Exam(s) MR UPPER JOINT RT WO EXAM: MR UPPER JOINT RT WO CLINICAL HISTORY: evaluate pathology,RT SHOULDER PAIN,INJURY,[id number]. TECHNIQUE: Multiplanar multisequence MRI was performed. COMPARISON: Plain films 17 April 2022 FINDINGS: BONES: There is no fracture or contusion pattern. Degenerative subchondral cysts in the superior hu meral head. JOINTS:The acromioclavicular joint shows mild degenerative changes.. The glenohumeral joint shows mi ld degenerative changes. Small amount of clinic humeral joint fluid. TENDONS: Supraspinatus: thickening and intermediate signal. Full-thickness tear distally with retraction of 8 millimeters. Infraspinatus: Unremarkable. Subscapularis: Unremarkable. Teres Minor: Unremarkable. Biceps and Dundee: Fluid around biceps tendon. The tendon appears intact throughout. MUSCLES: Unremarkable. GLENOID LABRUM: Unremarkable on this noncontrast examination. SOFT TISSUES: Unremarkable. IMPRESSION: Full-thickness tear with retraction of the supraspinatus tendon. DATA REPOSITORY:
== END 2022-04-23 01:02 ==
LOC: DI 00:42
PROVIDERS: PCP Student in an Organized Health Care Education/Training Program; Visit Provider Nurse Practitioner Family
DX: M75.101 Unspecified rotator cuff tear or rupture of right shoulder, not specified as traumatic (principal)
CPT/HCPCS: 73221

== ENCOUNTER 2022-05-26 09:49 | Outpatient (CLI) | payer OTHER, MEDICARE, SELFPAY ==
--- NOTE | 2022-05-26 09:53 | DI.RAD_ITS ---
Exam(s) XR ELBOW RT COMPLETE EXAM: XR ELBOW RT COMPLETE CLINICAL HISTORY: R ELBOW PAIN,TRAUMATIC RUPTURE RT DISTAL BICEPS TENDON, LAT EPICONDYLITIS. TECHNIQUE: 2D digital imaging was performed of the left elbow. Three images were obtained. AP, lat eral and oblique views were obtained. COMPARISON: No exams were available for comparison FINDINGS: BONES: No acute fracture is present. No bony destructive lesion is seen. JOINTS: The elbow is normally aligned. No joint effusion is seen. SOFT TISSUE: Tiny osseous density is seen adjacent to the medial epicondyle. It is a well corticated suggesting old injury. IMPRESSION: No acute abnormality. DATA REPOSITORY: RADIATION DOSE DELIVERED:
== END 2022-05-26 10:09 ==
LOC: DI 09:50
PROVIDERS: PCP Student in an Organized Health Care Education/Training Program; Visit Provider Student in an Organized Health Care Education/Training Program
DX: S46.211A Strain of muscle, fascia and tendon of other parts of biceps, right arm, initial encounter (principal); M77.11 Lateral epicondylitis, right elbow; M25.521 Pain in right elbow
CPT/HCPCS: 73080

== ENCOUNTER 2022-06-07 02:03 | Outpatient (CLI) | payer OTHER, MEDICARE, SELFPAY ==
--- NOTE | 2022-06-07 07:45 | DI.MRI_ITS ---
Exam(s) MR UPPER JOINT RT WO EXAM: MR UPPER JOINT RT WO CLINICAL HISTORY: EVALUATE DISTAL BICEPS FOR POSSIBLE SURGERY,traumatic rupture,[id number] TECHNIQUE: Multiplanar multisequence MRI was performed without intravenous contrast. COMPARISON: CR XR ELBOW RT COMPLETE from 05/26/2022 FINDINGS: There is some motion artifact on the sequences. MARROW: There is no evidence of fracture, obvious bone contusion, nor ominous osseous lesions. ELBOW JOINT: Small amount of increased joint fluid. No large joint effusion.No osteochondral defects in the capitellum and trochlea. Small subarticular cysts outer aspect capitellum but no overlying o steochondral defect. EPICONDYLES: There is some mild increased signal in the common extensor tendon and subjacent radial c ollateral ligament but no high-grade tears. ULNAR COLLATERAL LIGAMENT: The anterior band which extends from the medial epicondyle to the sublime tubercle of the coronoid process of the ulna is intact. This structure is the strongest ligament in t he elbow and is the main opponent to severe valgus stress. TENDONS: There is mild increased signal in the distal biceps tendon at the insertional aspect but no high-grad e tear.. The brachialis tendon is intact. The triceps tendon is intact. CUBITAL TUNNEL/ULNAR NERVE: The ulnar nerve appears unremarkable beneath the cubital tunnel retinacul um/ arcuate ligament and posterior to the medial epicondyle. There is no evidence of arthritic spur arising from the epicondyle nor olecranon causing impingement on the ulnar nerve. There is no eviden ce of accessory anconeus muscle causing impingement at this level. There is also no evidence of soft tissue mass nor ganglia on cyst causing impingement at this level. OTHER FINDINGS: IMPRESSION: 1. Mild increased signal in the distal biceps tendon but no high-grade tear of this structure. Also no intraosseous signal in the radial tuberosity attachment site of the biceps tendon. 2. Mild increased signal in the common extensor tendon and subjacent radial collateral ligament. 3. Intact ulnar collateral ligament. 4. Mild degenerative changes in the lateral aspect of the joint. No osteochondral defects. No loos e intra-articular bodies evident. Small amount of increased joint fluid. DATA REPOSITORY:
== END 2022-06-07 02:23 ==
LOC: DI 02:04
PROVIDERS: PCP Student in an Organized Health Care Education/Training Program; Visit Provider Student in an Organized Health Care Education/Training Program
DX: S46.211A Strain of muscle, fascia and tendon of other parts of biceps, right arm, initial encounter; M25.421 Effusion, right elbow; M25.821 Other specified joint disorders, right elbow
CPT/HCPCS: 73221

== ENCOUNTER 2022-06-10 08:52 | Day surgery (SDC) | payer OTHER, MEDICARE, SELFPAY ==
[2022-06-10] VITALS (10 sets, daily range): BP systolic 81–140; BP diastolic 56–99; PULSE 57–85; RESP 12–17; TEMP 36.2–36.7; O2SAT 93–98; BMI 27.1
--- NOTE | 2022-06-10 07:02 | W.PM.DSUDISC ---
Date of service: 06/10/22 Time of Service: 15:00 Discharge Plan Disposition Patient Disposition: Home Discharge Details Attending Provider: Cristopher Wilson Primary Care Provider: Jacque Lassiter Home Meds and New Rx's Prescriptions: New naproxen 250 mg tablet 250 - 500 mg PO BID PRNQty: 40 0RF Rx Instructions: take with a meal oxycodone 5 mg tablet 5 - 10 mg PO Q4H MDD 30 mg PRN (Reason: moderate to severe pain) Qty: 18 0RF Continued albuterol sulfate 90 mcg/actuation HFA aerosol inhaler 1 puff inhalation ONCE nortriptyline 25 mg capsule 75 mg PO DAILY budesonide-formoterol [Symbicort] 160-4.5 mcg/actuation HFA aerosol inhaler 2 puff inhalation BID cyclobenzaprine 10 mg tablet 10 mg PO HS PRN fluoxetine 20 mg tablet 40 mg PO DAILY MDD 40mg Qty: 60 1RF Rx Instructions: Trial 30mg x1week,then 40mg.. review with Clinical Pharmacist, Neurology pyridostigmine bromide [Mestinon] 60 mg tablet 60 mg PO BID Qty: 180 3RF Rx Instructions: Increase ONLY if helping or per NEURO; PER HOSP:on rising with food and lunch; diphenhydramine HCl [Benadryl] 25 mg capsule 25 mg PO DAILY PRN fluticasone propionate 50 mcg/actuation spray,suspension 1 spray intranasal BID Rx Instructions: administer into each nostril loperamide [Imodium A-D] 2 mg capsule 2 mg PO DAILY ipratropium-albuterol 0.5 mg-3 mg(2.5 mg base)/3 mL solution for nebulization 3 ml inhalation QID PRN thiamine HCl (vitamin B1) 100 mg tablet 100 mg PO DAILY Qty: 30 1RF buspirone 5 mg tablet See Rx Instructions .ROUTE .COMPLEX Qty: 60 0RF Dose Instruction: TAKE 1 TABLET BY MOUTH TWICE DAILY Rx Instructions: TAKE 1 TABLET BY MOUTH TWICE DAILY aspirin 81 mg tablet,delayed release (DR/EC) See Rx Instructions .ROUTE .COMPLEX Qty: 30 0RF Dose Instruction: TAKE 1 TABLET BY MOUTH ONCE DAILY Rx Instructions: TAKE 1 TABLET BY MOUTH ONCE DAILY cetirizine [Zyrtec] 10 mg Tablet 10 mg PO HS cholecalciferol (vitamin D3) [Vitamin D3] 25 mcg (1,000 unit) Capsule 25 mcg PO DAILY Probiotic 10 billion cell Capsule 10 cell PO DAILY Centrum Men 50 Plus Minis [phone] mcg Tablet 1 tab PO DAILY omeprazole 20 mg Capsule,Delayed Release(Dr/Ec) 20 mg PO HS Discontinued ibuprofen 600 mg tablet 600 mg PO QID PRNQty: 60 0RF Discharge Instructions Additional Instructions: Surgery: Right shoulder arthroscopy with rotator cuff repair (supraspinatus), biceps tenodesis, extensive debridement, and subacromial decompression. Activity: For 6 weeks, you should keep your arm at your side in a neutral position at all times except for physical therapy. Do not try to lift or raise your arm using your own muscles. You should use the sling whenever you are out of the house. You may have to adjust the abduction pillow or remove it for comfort. At home it is best to remove the sling and rest the arm on a pillow at your side or support the operative side with your other hand. You may allow the arm to dangle at your side. A physical therapy prescription will be sent electronically to begin in about 3 weeks. Prescriptions: Resume Aspirin 81 mg daily tomorrow Naproxen 250 mg take 1-2 every 12 hours with a meal as needed for moderate pain (do NOT use at the same time as Ibuprofen) Oxycodone 5 mg take 1-2 every 4-6 hours as needed for severe pain You may use [id number] Tylenol (acetaminophen) as needed for mild pain. These pain medications may be taken all at once or in different combinations as needed. Also, recommend Colace (docusate) as a stool softener as surgery and pain medicine cause constipation. You may try [id number] diphenhydramine (Benadryl) 25-50 mg nightly as a sleep aid Dressings: Remove shoulder bandage after 3 days. Leave the sticky Steri-Strips in place until they fall off or remove them after you shower. Cover the incisions with Band-Aids or leave them open to air. You may shower after 5 days. Follow-up: 10-[address] Wilson You may take off the leg compression stockings this evening at home. You may also leave them on a few days longer if you have a history of leg swelling or edema. Let us know right away if you develop any redness, drainage, fevers, chest pain, or trouble breathing. Do not drink alcohol or drive for at least 24 hours after anesthesia. Please call the office during business hours with any questions or concerns. Discharge Orders Discharge Orders: Discharge Order (Routine); Ordered 06/10/22 Ordered By: Cristopher Wilson DS: Diagnosis Discharge Diagnosis (1) Rupture of right supraspinatus tendon: Status: Acute (2) Tendonitis of long head of biceps brachii of right shoulder:
--- NOTE | 2022-06-10 07:03 | ROE_ITS ---
Date of service: 06/10/22 Time of Service: 11:30 Operative Note Operative Note DATE OF PROCEDURE: 06/10/22 PRE-OP DIAGNOSIS: Right: 1. Rotator cuff tear 2. LHB tendinopathy 3. Bursitis POST-OP DIAGNOSIS: same PROCEDURE: Right: 1. Rotator cuff repair, CPT# 38190. This involved repair of the supraspinatus using anchors and sutures to reattach the rotator cuff back to the footprint of the greater tuberosity. 2. Arthroscopic biceps tenodesis, CPT# 12058. This involved arthroscopically suturing and reattaching the long head of the biceps tendon to the proximal humerus at the superior margin of the bicipital groove with a screw at the correct tension. 3. Extensive debridement, CPT# 71498. This involved using arthroscopic hand instruments, power instruments, and radiofrequency instruments to release the long head of the biceps tendon and debride areas of labral tearing, SLAP tearing, synovitis, release part of the thickened MGHL, and debride chondromalacia about the humeral head within the glenohumeral joint anteriorly, superiorly and posteriorly. 4. Subacromial decompression with partial acromioplasty, CPT# 31653. This involved using arthroscopic power instruments and a radiofrequency wand to complete a bursectomy and smooth the undersurface of the acromion. The export sales assistant was medically required in order to help assist in techniques above, which require positioning the arm, holding the arthroscope, and manipulating multiple instruments and sutures at the same time. This cannot be done without the help of an experienced export sales assistant. SURGEON: Cristopher Wilson GRAIN TRADER: Antonia Robles ANESTHESIA TYPE: General LMA/ETT and Primary Nerve Block Refer to Anesthesia Record ESTIMATED BLOOD LOSS: 10 PATHOLOGY: none sent COMPLICATIONS: None Patient was transported to: PACU Patient's condition: stable Implants: Arthrex: 4.75mm SwiveLocks x 1 Indications: The patient was diagnosed with the above conditions and appropriately indicated for surgical intervention. Please see complete medical record for details. Findings: Exam under anesthesia: Full range of motion, no instability Glenohumeral joint: Obvious SLAP tear superior labral fraying and unstable biceps anchor. Extension of the labral tearing somewhat posteriorly more so anteriorly. Thickened [facility]. Intact subscapularis. Largely intact articular cartilage. Obvious full-thickness supraspinatus rotator cuff tear. Fibrinous changes about the greater tuberosity. Intact infraspinatus. Subacromial space: Moderate lateral bursitis. No significant bone spurring. Full-thickness supraspinatus tear fairly focal about 2 cm after prepared to stable margins anteriorly at the biceps tendon and posteriorly still in the supraspinatus. Moderate tendon remnant laterally. Thickened but not otherwise degenerated edge of the tendon Procedure Description: In the operating room, general anesthesia was induced. Bilateral shoulders were examined. The patient was positioned in the beachchair position. All bony prominences were well-padded. Preoperative antibiotics were administered. The shoulder was prepped and draped in the usual sterile fashion. The correct patient, procedure, and side of the procedure were all verified prior to incision. Starting through the posterior portal a standard complete diagnostic arthroscopy was performed of the glenohumeral joint including inspection of the long head of the biceps, anterior and superior labrum, subscapularis tendon, supraspinatus and infraspinatus tendons, and axillary recess. The glenoid and humeral head cartilage as well as the posterior labrum were inspected from an anterior viewing portal. Significant findings and interventions noted above. An all-arthroscopic suprapectoral biceps tenodesis was performed through an ant erior portal using a Loop N Tack method with a SutureTape FiberLink cinched around and through the tendon. The biceps was tenotomized from the labrum and repair sutures were withdrawn out the anterior portal for later repair with the adjacent supraspinous. Starting through the posterior portal, the arthroscope was directed into the subacromial space. A lateral 50 yard line lateral portal was created. A combination of power instruments and a radiofrequency ablator were used to debride bursitis anteriorly, posteriorly, and laterally as well as expose and smooth bone spurring on the undersurface of the acromion. The coracoacromial ligament was minimally released. The bursectomy was completed viewing laterally and working from posteriorly and the rotator cuff was thoroughly inspected with findings noted above. The rotator cuff tear was localized, thoroughly prepared debriding and freshening up tendon edge as well as preparing the medial central aspect of the greater tuberosity for bone and tendon healing. The tendon remnant laterally was resected to allow best visualization and suture anchor placement. Cuff grasper used to confirm best reduction and arm position. The self retrieving suture passer was used to place an inverted horizontal mattress FiberTape stitch spanning the anterior posterior aspects of the tear placed appropriately medially. A suture tape FiberLink was then placed centrally in ripstop fashion. Provisional reduction confirmed through the clear Glenys cannula rigid insert. The biceps tenodesis repair suture was then withdrawn through the tear out the subacromial space and lateral cannula. The undersized punch was used to localize placement of the suture anchor. All repair sutures were loaded up to a 4.75 mm bio composite swivel lock anchor with appropriate positioning and deep tensioning of the biceps tenodesis to rest at the superior aspect of the bicipital groove adjacent to the anterior aspect of the tear and tension in the rotator cuff repair suture separately avoiding undue tension on this repair given the placement of the suture anchor centrally and laterally and the slightly limited tendon length available due to the excised remnant. The repair was inspected and stable through range of motion and probing with a small amount of tissue available anteriorly over the biceps, which shows incorporated into the repair using the safety stitches and the suture anchor passed with the scorpion and secured with SMC arthroscopic knot. The shoulder was drained of arthroscopic fluid. All portal sites were copiously irrigated. These incisions were closed using 3-0 Monocryl in a buried fashion and then covered with Mastisol, Steri-Strips, Xeroform, dry gauze, and ABDs. The dressings were covered and secured with Medipore tape. The operative extremity was placed into a sling for immobilization. The patient awoke from anesthesia without complication and was transferred to the recovery room in a stable condition.
--- NOTE | 2022-06-10 08:24 | ANES.PREOP_ITS ---
General Info Date of Service Date Performed: 06/10/22 Height: 6 ft Weight: 90.718 kg Body Mass Index (BMI): 27.1 Surgical Procedure: Operation Date: 06/10/22 11:25 Proposed Procedure Side Surgeon p Shoulder Rotator Cuff Arthroscopic w/Extensive Debridement, Biceps Tenodesis, Subacromial Decompression Right Cristopher Wilson MD Meds Allergies and Home Medications Allergies Allergy/AdvReac Type Severity Reaction Status Date / Time magnesium AdvReac Unknown upset Uncoded 06/10/22 09:26 stomach Home Medication Medication Instructions Recorded albuterol sulfate 90 mcg/actuation 1 puff inhalation ONCE 04/01/22 aerosol inhaler budesonide-formoterol HFA 160 2 puff inhalation BID 04/01/22 mcg-4.5 mcg/actuation aerosol inhaler (Symbicort) nortriptyline 25 mg capsule 75 mg PO DAILY 04/01/22 Lactobacillus acidophilus 10 10 cell PO DAILY 04/16/22 billion cell capsule (Probiotic) cetirizine 10 mg tablet (Zyrtec) 10 mg PO HS 04/16/22 cholecalciferol (vitamin D3) 25 25 mcg PO DAILY 04/16/22 mcg (1,000 unit) capsule (Vitamin D3) [id number] 150 mcg-vit K1 1 tab PO DAILY 04/16/22 30 mcg-lycop 300 mcg-lutein tablet (Centrum Men 50 Plus Minis) omeprazole 20 mg capsule,delayed 20 mg PO HS 04/16/22 release ibuprofen 600 mg tablet 600 mg PO QID PRN #60 tabs 04/19/22 diphenhydramine HCl 25 mg capsule 25 mg PO DAILY PRN 05/10/22 (Benadryl) fluticasone propionate 50 1 spray intranasal BID 05/10/22 mcg/actuation nasal spray,suspension ipratropium 0.5 mg-albuterol 3 mg 3 ml inhalation QID PRN 05/10/22 (2.5 mg base)/3 mL nebulization soln loperamide 2 mg capsule (Imodium 2 mg PO DAILY 05/10/22 A-D) thiamine HCl (vitamin B1) 100 mg 100 mg PO DAILY #30 tabs 05/11/22 tablet pyridostigmine bromide 60 mg 60 mg PO BID #180 tabs 05/26/22 tablet (Mestinon) fluoxetine 20 mg tablet 40 mg PO DAILY #60 tabs 06/05/22 aspirin 81 mg tablet,delayed See Rx Instructions .Route 06/08/22 release .COMPLEX #30 tabs buspirone 5 mg tablet See Rx Instructions .Route 06/08/22 .COMPLEX #60 tabs cyclobenzaprine 10 mg tablet 10 mg PO HS PRN 06/09/22 Current Visit Medications: Current Medications Generic Name Dose Route Start Last Admin Trade Name Freq PRN Reason Stop Dose Admin Ringer's Solution 1,000 mls @ 30 mls/hr 06/10/22 06:00 IV 07/09/22 23:59 INFUSION KEIRA Cefazolin Sodium/Dextrose 2 gm in 50 mls @ 100 mls/hr 06/10/22 06:00 Ancef Duplex IVPB 06/10/22 16:00 PREOP KEIRA IV Miscellaneous Supplies 1 each 06/10/22 06:00 Iv Access IV 07/09/22 23:59 DIRECTED KEIRA Oxycodone HCl 0 mg 06/10/22 07:01 Oxycodone 5 Mg Tab PO Q3H PRN PRN Pain Sodium Chloride 0 ml 06/10/22 06:00 Normal Saline Flush 10 Ml Syr IV 07/09/22 23:59 PRN PRN Sodium Chloride 0 ml 06/10/22 06:00 Normal Saline 10 Ml Vial IJ 07/09/22 23:59 DIRECTED PRN Sterile Water 0 ml 06/10/22 06:00 Water,Injection,Sterile 10 Ml Vial IJ 07/09/22 23:59 DIRECTED PRN PFSH Active Problems Active Problems: Problem Status Onset Code 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 Myasthenia gravis G70.00 Skin lesion of back L98.9 Asthma J45.909 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 Family history of diabetes mellitus with ketoacidosis Elevated gluc in hosp, but WNL A1C (5.1)(2.2022).. Mat & Paternal sides (unclear if ketoacidosis) Family history of hypertension in father Fibromyalgia Fibromyositis Dx = localized inflamm of mm & conn tissue (pn/sw/redness/heat) IBS (irritable bowel syndrome) Diet ctlld (immed diarrhea w/ Magn)(kaylin sauce)(high fiber foods) .. Vit D & Probiotic seems to help. Lyme disease (12/16/20) Doxy x 1 week <-- x2 ?? 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 Tendonitis of long head of biceps brachii of right shoulder Surgical History Surgical History (Updated 06/10/22 @ 09:22 by Quita Frazier) History of appendectomy (~1960) History of tonsillectomy (~1960) S/P right knee arthroscopy Tobacco Smoking/Tobacco Use Status: Former Tobacco Use Passive smoking exposure: No Alcohol Alcohol Intake: current Alcohol intake frequency: 3 or more drinks per day Alcohol type: beer Substance Use Substance use: Never Substance use type: does not use Counseling provided: none Vital Signs and Lab Results Lab Results Blood Type / Crossmatch: No Data to Display Complete Blood Count: No Data to Display Complete Metabolic Panel: No Data to Display Liver Function Panel: No Data to Display Coagulation Panel: No Data to Display Cardiac Panel: No Data to Display Arterial Blood Gas: No Data to Display Venous Blood Gas: No Data to Display Pancreas Panel: No Data to Display Thyroid Panel: No Data to Display Infectious Disease: No Data to Display Blood Cultures: No Data to Display Toxicology Panel: No Data to Display Imaging and Studies Imaging and Studies Study information below may be from another EMR and interpreted by another provider. Please see original notes in EMR for more complete details. EKG Summary: EKG PATIENT NAME: Chelsey Lynch #: [id number] ORDERING PROVIDER: Lj Ulrich M.D. PRIMARY CARE PROVIDER:JACQUE LASSITER DO DATE/TIME OF SERVICE: 04/16/22 1203 : 1955PERFORMING LOCATION: ER APPROVED REPORT Exam: Resting ECG Reason for Exam: Dizziness Patient Location: E HR:81 bpm ECG Measurements Heart Rate 81 AXIS [place] 150 P 49 QRSd 94 QRS 26 QT 361 T50 QTc 420 Conclusion Sinus rhythm...normal P axis, V-rate 60- 99 Normal Garrett I have reviewed and interpreted ECG and agree with software generated interpretation. Normal Electrocardiogram Echocardiogram Summary: Patient Name: Chelsey Lynch #: [id number]: MS Ordering Provider: Radha Rodriguez NPAccount #: [id number]: ADM IN Primary Care Provider: Jacque Lassiter of Exam: 04/16/22Sex: M Admission Date: 04/16/22 : 1955 Age: 66 APPROVED REPORT EXAM: Comprehensive 2D, Doppler, and color-flow Echocardiogram Patient Location: In-Patient Room/Bed: [facility] Personal Lines Advisor: Noemy Hanson RDCS (AE) Indications: CVA Echo Enhancing Agent Indication: Rule out Shunt Agent(s) / Amount(s) Used: Agitated Saline 30.0 cc Comments: Contrast study was performed with 3 IV injections of 10ccs of agitated normal saline, at rest, with cough and post valsalva maneuver. Negative contrast study for shunt flow. Other Information Study Quality: Adequate Conclusion Normal left ventricular wall thickness and chamber size. Estimated ejection fraction is 60%. Wall motion is normal Normal right ventricular size and systolic function Both atria are normal in size No intracardiac shunt is identified with injection of agitated saline There are no structural valvular abnormalities There is mild mitral regurgitation Estimated right ventricular systolic pressure is 19 mmHg Anesthesia Assessment and Plan Anesthesia History Personal History: No History of Anesthesia Complications Family History: No Family History of Anesthesia Complications Exercise Tolerance Exercise Tolerance: Metabolic Equivalents>4 Pertinent Negatives Pertinent Negatives: No Symptoms of GERD Cardiac & Pulmonary Exam Cardiac Exam: Normal S1/S2 Heart Sounds Pulmonary Exam: Clear Bilateral Breath Sounds Implantable Cardiac Device Does patient have a Pacemaker or an ICD?: No Airway Exam Known Difficult Airway: No Mallampati Class: 3 Mouth Opening: Narrow (< 3cm) Thyromental Distance: Less than 3 cm Neck Range of Motion: Full ROM Neck Circumference: Normal Teeth Condition: Generalized Poor Dentition ASA Classification ASA Score: ASA 3 Emergency Case?: No NPO Status NPO Status: NPO Clears >2 hours, Solids >8 hours Anesthesia Plan Resuscitation Status: Full Code Anesthesia Technique: General Anesthesia Airway Planned: Endotracheal Tube Pain Management: Surgeon and patient request nerve block Monitors Used: Standard Monitors Preoperative Comments:: Discussed significant concerns related to Myasthenia Gravis, Fibromyalgia, and reactive airway disease. Discussed with partner, Larisa, at bedside. Plan, risks, benefits, and possibility of alternatives discussed. All questions answered and patient wishes to proceed.
[2022-06-10] MEDS: Lactated Ringers 1,000 ML 30 ML IV (10:30)
[2022-06-10] MEDS: ceFAZolin 2 GM/50 ML BAG IVPB (12:30)
--- NOTE | 2022-06-10 13:05 | W.ANESNERVE ---
Nerve Block Single Injection Procedure Date and Time Date Performed: 06/10/22 Procedure Start: 11:50 Location Where Procedure Performed Procedure Location: Day Surgery Unit Reason Performed: Postoperative Analgesia Requesting Provider: Cristopher Wilson Timeout Performed Timeout Performed: Yes Monitoring Used ECG, Blood Pressure and SpO2 Sterility Sterility: Hand Hygiene, Surgical Cap, Surgical Mask, Sterile Gloves and Chlorhexidine Sedation Given During Procedure Sedation Given (Indicate Dose Given): Versed IV Dose:: 2 mg Patient Mental Status Patient Mental Status: Sedate with meaningful communication (Patient required additional intervention to redirect to complete block) Nerve Block 1st Nerve Block: Laterality: Right Block Type: Interscalene Ultrasound Image Saved?: Yes Needle / Catheter Used: 100mm SonoPlex II Local Anesthetic Bolus (Indicate Dose Given): Lidocaine used for local infiltration of skin, Injected in 3-5ml increments after negative blood aspiration, Bupivacaine 0.5% Dose:: 10 ml and Exparel Dose:: 10 ml Additives (Indicate Dose Given): None Ultrasound: Sterile probe cover and gel used Nerve Stimulator: No twitch or parasthesia noted < 0.5 mA Paresthesia: None Procedure Tolerated: No Complications and Patient tolerated well Procedure Outcome: Successful Procedure Comment: Patient initially not redirectable and required additional nursing assistance after midazolam administer. I believe he would be greater served by less medication in the future or possibly using dexmeditomidine instead of a benzodiazepine. Performed By: Kimo Montanez
[2022-06-10] MEDS: EPINEPHrine 30 MG/30 ML VIAL (13:45)
--- NOTE | 2022-06-10 15:00 | W.ANESPOSTOP ---
Postoperative Evaluation Date, Time and Location Date Performed: 06/10/22 Time Performed: 15:00 Patient Location: Day Surgery Unit Vital Signs Most Recent Imported Vital Signs: Most Recent Vital Signs Temp Pulse Resp BP Pulse Ox 36.4 C L 61 14 87/56 L 98 06/10/22 14:36 06/10/22 14:36 06/10/22 14:36 06/10/22 14:36 06/10/22 14:36 Pain Score Most Recent Pain Score: Most Recent Pain Score Pain Level 0 06/10/22 14:36 Assessment Mental Status: Awake (Alert & Oriented to Patient Baseline) Airway and Respiratory Function: Patent airway with normal (patient baseline) respiratory exam Cardiovascular Function: Hemodynamically Stable Hydration Status: Volume Depleted (See Note) (Slightly hypotensive. Bolus being given. RN to follow. ) Nausea & Vomiting: No Nausea or Vomiting Pain: Pt. Denies Any Pain Peripheral Nerve Block: Regional nerve block not resolved at time of post operative discharge
== END 2022-06-10 16:55 | disposition home or self-care (01) ==
PROVIDERS: PCP Student in an Organized Health Care Education/Training Program; Visit Provider Student in an Organized Health Care Education/Training Program
PROC: (CPT 29827; principal; 2022-06-10 11:15)
DX: S46.011A Strain of muscle(s) and tendon(s) of the rotator cuff of right shoulder, initial encounter (principal); M75.21 Bicipital tendinitis, right shoulder; S43.431A Superior glenoid labrum lesion of right shoulder, initial encounter; M94.211 Chondromalacia, right shoulder; M75.51 Bursitis of right shoulder; X58.XXXA Exposure to other specified factors, initial encounter
CPT/HCPCS: 29827; 29828; 29826; 29823; 76942; J0690; J1100; J2250; J2370; J2405; J2704

== ENCOUNTER 2022-10-27 09:17 | Outpatient (CLI) | payer OTHER, MEDICARE, SELFPAY ==
--- NOTE | 2022-10-27 09:15 | RT.EKG_ITS ---
APPROVED REPORT Exam: Resting ECG Reason for Exam: Dizzy Patient Location: O HR:68 bpm ECG Measurements Heart Rate 68 AXIS FL 166 P 47 QRSd 110 QRS 37 QT 395 T 52 QTc 421 Conclusion Sinus rhythm...normal P axis, V-rate 50- 99 Normal Electrocardiogram
== END 2022-10-27 09:18 | disposition home or self-care (01) ==
LOC: DI.CM 09:18
PROVIDERS: PCP Student in an Organized Health Care Education/Training Program; Visit Provider Nurse Practitioner Family
DX: R42 Dizziness and giddiness (principal)
CPT/HCPCS: 93010

== ENCOUNTER 2022-10-27 10:17 | Emergency (ER) | payer OTHER, MEDICARE, SELFPAY ==
--- NOTE | 2022-10-27 10:15 | RT.EKG_ITS ---
APPROVED REPORT Exam: Resting ECG Reason for Exam: dizziness Patient Location: E HR:70 bpm ECG Measurements Heart Rate 70 AXIS MT 170 P 28 QRSd 100 QRS 22 QT 394 T 51 QTc 425 Conclusion Sinus rhythm...normal P axis, V-rate 60- 99
[2022-10-27 10:33] VITALS: BP 121/79; PULSE 71; RESP 19; TEMP 36.5; O2SAT 98
--- NOTE | 2022-10-27 10:45 | DI.MRI_ITS ---
Exam(s) MR BRAIN WO EXAM: MR BRAIN WO CLINICAL HISTORY: dizziness and diplopia TECHNIQUE: Multiplanar multisequence MRI of the brain was performed. COMPARISON: MR MR BRAIN WO from 04/16/2022 FINDINGS: VENTRICLES AND EXTRA AXIAL SPACES: Normal in size and morphology for the patient's age. MIDLINE SHIFT: None. CEREBRAL PARENCHYMA: No focus of restricted diffusion to suggest acute infarct. No space-occupying le kerrie identified. There are few foci of hyperintense signal seen in the white matter on the FLAIR and T2 weighted images likely reflecting small vessel ischemic disease. HEMORRHAGE: None. BRAINSTEM/CEREBELLUM: Normal. CALVARIUM: Normal. VISUALIZED PARANASAL SINUSES/MASTOIDS:Clear. CROW OF GALEANA: Normal flow void. PITUITARY GLAND: Unremarkable. OTHER FINDINGS: None. IMPRESSION: 1. No acute intracranial process. 2. Findings were discussed with the emergency department at 12:35 p.m. on 10/27/2022. DATA REPOSITORY:
--- NOTE | 2022-10-27 10:53 | W.ED.GENAD ---
Discharge Plan Disposition Patient Disposition: Home Condition: Stable Discharge Details Clinical Impression: Dizziness, Lightheaded Primary Care Provider: Jacque Lassiter ED Provider: Nakul Pleitez Home Meds and New Rx's Prescriptions: Continued albuterol sulfate 90 mcg/actuation HFA aerosol inhaler 1 puff inhalation ONCE budesonide-formoterol [Symbicort] 160-4.5 mcg/actuation HFA aerosol inhaler 2 puff inhalation BID cyclobenzaprine 10 mg tablet 10 mg PO HS PRN donepezil 10 mg tablet 10 mg PO QHS Qty: 90 3RF fluticasone propionate 50 mcg/actuation spray,suspension 1 spray intranasal BID Rx Instructions: administer into each nostril loperamide [Imodium A-D] 2 mg capsule 2 mg PO DAILY ipratropium-albuterol 0.5 mg-3 mg(2.5 mg base)/3 mL solution for nebulization 3 ml inhalation QID PRN aspirin 81 mg tablet,delayed release (DR/EC) See Rx Instructions .ROUTE .COMPLEX Qty: 90 1RF Dose Instruction: TAKE 1 TABLET BY MOUTH ONCE DAILY Rx Instructions: TAKE 1 TABLET BY MOUTH ONCE DAILY pyridostigmine bromide [Mestinon] 60 mg tablet 60 mg PO TID Qty: 270 3RF Rx Instructions: Take early am, 1 hour prior to lunch, and 1 hour prior to dinner nortriptyline 25 mg capsule 75 mg PO DAILY Qty: 90 3RF Rx Instructions: per previous pcp buspirone 5 mg tablet See Rx Instructions .ROUTE .COMPLEX Qty: 60 1RF Dose Instruction: TAKE 1 TABLET BY MOUTH TWICE DAILY Rx Instructions: TAKE 1 TABLET BY MOUTH TWICE DAILY fluoxetine 20 mg tablet 40 mg PO DAILY MDD 40mg Qty: 60 1RF Rx Instructions: Trial 30mg x1week,then 40mg.. review with Clinical Pharmacist, Neurology thiamine HCl (vitamin B1) 100 mg tablet 100 mg PO DAILY Qty: 30 3RF cetirizine [Zyrtec] 10 mg Tablet 10 mg PO HS cholecalciferol (vitamin D3) [Vitamin D3] 25 mcg (1,000 unit) Capsule 25 mcg PO DAILY Probiotic 10 billion cell Capsule 10 cell PO DAILY Centrum Men 50 Plus Minis [id number] mcg Tablet 1 tab PO DAILY omeprazole 20 mg Capsule,Delayed Release(Dr/Ec) 20 mg PO HS naproxen 250 mg tablet 250 - 500 mg PO BID PRNQty: 40 0RF Rx Instructions: take with a meal Discharge Instructions Instructions: Dizziness (ED) Additional Instructions: your mri and lab work did not show concerning findings try to stay hydrated follow up with your primary care provider within 1-2 weeks if you feel more ill, have worsening symptoms or new symptoms such as difficulty breathing return to the emergency department Medical Decision Making 67 yo male with hx of ocular myasthenia gravis, anxiety, gerd, who comes in with chief complaint of feeling lightheaded and dizzy. HE states he had 4 episodesyesterday where he was sitting and felt like he was going to pass out, he is not sure if he had loc or not. Today he states when he turns his head he feels the room spinning and feels he has double vision. Denies headche, chest pain, dyspnea, abdominal pain. He has not had any falls or trauma. HE arrives ambulatory and has no focal motor or sensation deficits, cn ii-xii are intact, clear speech. Unclear etilogy for his symptoms, will obtain cbc, cmp, troponin, and mri of the brain though given lack of deficits on exam concern for central cva is low. No tachycardia or hypoxia to suggest pe and no tearing back pain to suggest dissection labs and imaging unremarkable, pt feels better with fluids, still no deficits on exam. Symptoms for over a day so do not feel delta troponin indicated. Suspect dehydration/orthostasis, he feels well enough with d/c and is stable for d/c, advised to f/u with pcp and return precautions given Differential Diagnosis Differential Diagnosis: dehydration, myasthenia, central cva, Medical Records Medical records reviewed: Yes I reviewed the patient's medical records. Imaging Data Radiologic Study: Attestation: I personally reviewed and interpreted this imaging study as follows: Imaging: MRI Radiologist's impression: no acute findings Lab Data Lab results reviewed: Yes I reviewed the patient's lab results. ECG Data Attestation: I personally reviewed and interpreted this ECG (s) as follows: Prior ECG tracings: available for review Interpretation: sinus rate of 70, pr 170, no stemi HPI General Mode of arrival: ambulatory. Date/Time Provider Initiated Documentation: 10/27/22 10:21. Limitations to Documentation: no limitations. Information obtained by: patient. History of Present Illness 67 year old M presents to the emergency department with the chief complaint of dizziness, described as moderate, Patient started experiencing this day(s) (1) and it has been constant. No relieving factors improve symptom(s), Other factors that worsen symptoms (turning head) . Patient notes no other symptoms.. Patient did receive the following treatments prior to arrival, none Related Data Home Medications Medication Instructions Recorded Confirmed albuterol sulfate 90 mcg/actuation 1 puff inhalation ONCE 04/01/22 10/27/22 aerosol inhaler budesonide-formoterol HFA 160 2 puff inhalation BID 04/01/22 10/27/22 mcg-4.5 mcg/actuation aerosol inhaler (Symbicort) Lactobacillus acidophilus 10 10 cell PO DAILY 04/16/22 10/27/22 billion cell capsule (Probiotic) cetirizine 10 mg tablet (Zyrtec) 10 mg PO HS 04/16/22 10/27/22 cholecalciferol (vitamin D3) 25 25 mcg PO DAILY 04/16/22 10/27/22 mcg (1,000 unit) capsule (Vitamin D3) [id number] 150 mcg-vit K1 1 tab PO DAILY 04/16/22 10/27/22 30 mcg-lycop 300 mcg-lutein tablet (Centrum Men 50 Plus Minis) omeprazole 20 mg capsule,delayed 20 mg PO HS 04/16/22 10/27/22 release fluticasone propionate 50 1 spray intranasal BID 05/10/22 10/27/22 mcg/actuation nasal spray,suspension ipratropium 0.5 mg-albuterol 3 mg 3 ml inhalation QID PRN 05/10/22 10/27/22 (2.5 mg base)/3 mL nebulization soln loperamide 2 mg capsule (Imodium 2 mg PO DAILY 05/10/22 10/27/22 A-D) cyclobenzaprine 10 mg tablet 10 mg PO HS PRN 06/09/22 10/27/22 naproxen 250 mg tablet 250 - 500 mg PO BID PRN #40 tabs 06/10/22 10/27/22 aspirin 81 mg tablet,delayed See Rx Instructions .Route 08/21/22 10/27/22 release .COMPLEX #90 tabs pyridostigmine bromide 60 mg 60 mg PO TID #270 tabs 08/23/22 10/27/22 tablet (Mestinon) nortriptyline 25 mg capsule 75 mg PO DAILY #90 caps 09/10/22 10/27/22 donepezil 10 mg tablet 10 mg PO QHS #90 tabs 09/30/22 10/27/22 buspirone 5 mg tablet See Rx Instructions .Route 10/16/22 10/27/22 .COMPLEX #60 tabs fluoxetine 20 mg tablet 40 mg PO DAILY #60 tabs 10/16/22 10/27/22 thiamine HCl (vitamin B1) 100 mg 100 mg PO DAILY #30 tabs 10/22/22 10/27/22 tablet Previous Rx's Medication Instructions Recorded naproxen 250 mg tablet 250 - 500 mg PO BID PRN #40 tabs 06/10/22 aspirin 81 mg tablet,delayed See Rx Instructions .Route 08/21/22 release .COMPLEX #90 tabs pyridostigmine bromide 60 mg 60 mg PO TID #270 tabs 08/23/22 tablet (Mestinon) nortriptyline 25 mg capsule 75 mg PO DAILY #90 caps 09/10/22 donepezil 10 mg tablet 10 mg PO QHS #90 tabs 09/30/22 buspirone 5 mg tablet See Rx Instructions .Route 10/16/22 .COMPLEX #60 tabs fluoxetine 20 mg tablet 40 mg PO DAILY #60 tabs 10/16/22 thiamine HCl (vitamin B1) 100 mg 100 mg PO DAILY #30 tabs 10/22/22 tablet Allergies Allergy/AdvReac Type Severity Reaction Status Date / Time diphenhydramine AdvReac Intermediate Myasthenia Unverified 10/27/22 11:00 [From Benadryl] Gravis Crisis Aminoglycosides AdvReac Unknown Myasthenia Unverified 10/27/22 11:00 Gravis Flare Macrolide Antibiotics AdvReac Unknown Unverified 10/27/22 11:00 magnesium AdvReac Unknown upset Uncoded 10/27/22 11:00 stomach General Stated Complaint: Dizzy/Sync KAYLYN: 3 Review of Systems All systems reviewed & are unremarkable except as noted in HPI and below Constitutional Constitutional: Denies chills, Denies fever(s) and Denies weakness Eyes Eyes: Denies loss of vision Cardiovascular Cardiovascular: Denies chest pain and Denies dyspnea Respiratory Respiratory: Denies cough and Denies dyspnea Gastrointestinal Gastrointestinal: Denies abdominal pain, Denies nausea and Denies vomiting Musculoskeletal Musculoskeletal: Denies joint swelling Neurologic Neurologic: Denies loss of vision and Denies weakness PFSH All Active Problems (Updated 10/27/22 @ 13:10 by Nakul Pleitez MD) Dizziness (Acute) Lightheaded (Acute) H/O repair of rotator cuff (Acute ~06/10/22) High risk medication use (Chronic) Medications to avoid in myasthenia gravis include antibiotics such as aminoglycosides, Bacitracin, Clindamycin, Quinolones, macrolides and Tetracycline; Antiarrhythmic medications are also contraindicated - Beta blockers and calcium channel blockers should be used with caution; Statins, quinine medications, Dilantin, [place] and antispasmodics that fall into the anticholinergic category should also be avoided; Inhaled anesthetics and neuromuscular blocking agents, including Botox should also be avoided. Daily consumption of alcohol (Acute) Reduced, no wine, 2 ciders.. 09/03/22, ik Hypertension (Chronic) Myasthenia gravis (Acute) Acute Ocular MG, per Dr. PIZANO, 05/2022. Mestinon started/increased. 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 per [facility] Neuro.? Anxiety (Chronic) Rupture of right supraspinatus tendon (Acute) Right shoulder arthroscopy with rotator cuff repair (supraspinatus), biceps tenodesis, extensive debridement, and subacromial decompression 06/10/22 Hyperlipidemia (Acute) GERD (gastroesophageal reflux disease) (Chronic) Benign prostatic hyperplasia (Chronic) Raynauds disease (Acute) will turn white when outside .. recomm: vest/hat when outdoors [vs gloves, per research], 05/2022, ik Memory loss (Acute) MOCA , Mar 2021 .. poor short-term memory per Cardio notes. Medical History Alcohol abuse Alcohol dependence Bursitis of hip Diffuse spasm of esophagus Family history of breast cancer Mo/Maternal? Family history of diabetes mellitus with ketoacidosis Elevated gluc in hosp, but WNL A1C (5.1)().. Mat & Paternal sides (unclear if ketoacidosis) Family history of hypertension in father Fibromyalgia Fibromyositis Dx = localized inflamm of mm & conn tissue (pn/sw/redness/heat) IBS (irritable bowel syndrome) Diet ctlld (immed diarrhea w/ Magn)(kaylin sauce)(high fiber foods) .. Vit D & Probiotic seems to help. Lateral epicondylitis of right elbow Lyme disease (12/16/20) Doxy x 1 week <-- x2 ?? 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 Skin lesion of back nothing found per pt/; (per chart review, Surg, 10/2019) Tendonitis of long head of biceps brachii of right shoulder Surgical History History of appendectomy (~1960) History of tonsillectomy (~1960) S/P right knee arthroscopy Social History Smoking/Tobacco Use Status: Former Tobacco Use Quit Date: 03/07/89 Tobacco: How many years used: 30 Quit status: quit date established Smoking risk assessment performed?: Yes Alcohol Intake: current Alcohol Intake frequency: 3 or more drinks per day Alcohol type: beer and other Drug use: Never Substance use type: does not use Counseling given: No Counseling provided: none Adopted: No Caregiver/Support person: No Foster care: No Household members: spouse Housing: house Communication Needs: None Education Level: high school Do you need help understanding health information?: Never current occupation: Retired Pets and animals: Yes Pets and animals: cat(s) Sexually active: Yes Do you think of yourself as: straight/heterosexual Current gender identity: male What is your relationship status?: How often do you talk on the phone with friends or family?: three or more times per week How often do you get together with friends or relatives?: three or more times per week Do you belong to any clubs or organized social groups?: no Panel score (0-1 are the most socially isolated patients): 2 What type of physical activity do you participate in: walking Duration: 45-60 minutes/day Frequency: daily Bonnie/Church: None Special bonnie needs: No Seatbelt use: always Drive intox or ride w/intox auto 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 Additional Social history: Unable to assess privately Exam Const General: no acute distress Orientation: alert HENMT Head: normal to inspection Ears: external ears normal General nose exam: external nose normal Mouth: moist mucous membranes Eyes General: appearance normal, both eyes and all related structures Neck Neck: normal visual inspection Resp Effort & Inspection: normal respiratory effort and able to speak in complete sentences Auscultation: clear to auscultation bilaterally Cardio Jugular venous pressure: no JVD Rate: regular rate Heart Sounds: no murmurs Skin General skin exam: no rashes or lesions noted Neuro General: patient alert and patient oriented x3 Extrem General: normal to inspection Psych Mental Status: mental status grossly normal Course Vital Signs Vital signs: Vital Signs Temperature 36.5 C 10/27/22 10:33 Pulse 71 10/27/22 10:33 Respiratory Rate 19 10/27/22 10:33 Blood Pressure 121/79 10/27/22 10:33 Pulse Oximetry 98 10/27/22 10:33 Temperature 36.5 C 10/27/22 10:33 Temperature Source Oral 10/27/22 10:33 Pulse 71 10/27/22 10:33 Respiratory Rate 19 10/27/22 10:33 Blood Pressure 121/79 10/27/22 10:33 Blood Pressure Position Sitting 10/27/22 10:33 Pulse Oximetry 98 10/27/22 10:33 Oxygen Delivery Method Room Air 10/27/22 10:33 Oxygen Flow Rate 0 10/27/22 10:33 Pain Level 0 10/27/22 10:33
[2022-10-27 10:54] LABS: Bilirubin Negative (Negative); Blood Negative (Negative); Clarity Clear (Clear); Glucose Negative (Negative); Ketones Negative (Negative); Leukocyte Esterase Negative (Negative); Nitrite Negative (Negative); Specific Gravity >= 1.030 (1.005-1.025); Urobilinogen 0.2 mg/dL (Up to 0.2)
[2022-10-27 11:04] LABS: Abs Immature Grans 0.03 10^3/uL (0.0-0.06); Absolute Basophil Count 0.04 10^3/uL (0.0-0.2); Absolute Eosinophil Count 0.15 10^3/uL (0.0-0.7); Absolute Monocyte Count 0.36 10^3/uL (0.1-0.8); Absolute Neutrophil Count 4.06 10^3/uL (1.2-6.7); Basophils % 0.7; Eosinophils % 2.7; HCT 48.9 % (40.0-50.0); HGB 16.4 g/dL (13.5-17.5); Immature Grans % 0.5; Lymphocytes % 16.2; MCHC 33.5 % (32.0-36.0); MCV 89 fL (80-95); Monocytes % 6.5; Neutrophils % 73.4; Platelet Count 213 10^3/uL (130-400); RBC 5.47 10^6/uL (4.36-5.78); RDW 11.7 % (11.8-14.1); WBC 5.54 10^3/uL (4.4-10.8)
[2022-10-27 11:24] LABS: Prothrombin Time 10.4 sec (9.3-11.0)
[2022-10-27 11:36] LABS: ALT 29 U/L (16-63); AST 24 U/L (15-37); Albumin 4.6 g/dL (3.4-5.0); Alkaline Phosphatase 78 U/L (46-116); Anion Gap 4.8 mmol/L (3-11); BUN 21 mg/dL (7-18); Bilirubin, Total 0.9 mg/dL (0.2-1.0); CO2 32.2 mmol/L (21.0-32.0); CREATININE 1.1 mg/dL (0.70-1.30); Calcium 9.8 mg/dL (8.5-10.1); Chloride 102 mmol/L (98-107); Estimated GFR 74.04 (mL/min/1.73m2); Glucose 100 mg/dL (74-106); Sodium 139 mmol/L (136-145); TSH (W/Ref FT4) 2.08 uIU/mL (0.36-3.74); Total Protein 7.9 g/dL (6.4-8.2)
[2022-10-27 11:40] LABS: Troponin I < 50 ng/L (<or=60)
[2022-10-27] MEDS: Normal Saline 1,000 ML 1000 ML IV (12:26)
[2022-10-27 13:15] VITALS: BP 139/91; PULSE 65; RESP 16; TEMP 36.4; O2SAT 98
== END 2022-10-27 13:19 | disposition home or self-care (01) ==
PROVIDERS: Emergency Provider Emergency Medicine; PCP Student in an Organized Health Care Education/Training Program
DX: R42 Dizziness and giddiness (principal); G70.00 Myasthenia gravis without (acute) exacerbation; I10 Essential (primary) hypertension; E78.5 Hyperlipidemia, unspecified; I73.00 Raynaud's syndrome without gangrene; Z87.891 Personal history of nicotine dependence
CPT/HCPCS: 80053; 93005; 96360; 99284; 70551; 81003; 83735; 84443; 84484; 85025; 85610; 85730; 93010; 99283

== ENCOUNTER → 2023-02-16 08:00 | Outpatient (BNVA) | payer MEDICARE, OTHER, SELFPAY | PROVIDERS: PCP Student in an Organized Health Care Education/Training Program; Referring Provider Student in an Organized Health Care Education/Training Program; Visit Provider Podiatrist | DX: G70.00 Myasthenia gravis without (acute) exacerbation (principal); I10 Essential (primary) hypertension; I73.00 Raynaud's syndrome without gangrene; B35.1 Tinea unguium; L60.3 Nail dystrophy | CPT/HCPCS: 99213 ==

== ENCOUNTER 2023-03-11 23:53 | Emergency (ER) | payer MEDICARE, OTHER, SELFPAY ==
[2023-03-11 23:56] VITALS: BP 156/107; PULSE 87; RESP 18; TEMP 37; O2SAT 97
[2023-03-11 23:57] VITALS: O2SAT 98
[2023-03-11 23:59] VITALS: BP 156/107; PULSE 85
[2023-03-12] VITALS (35 sets, daily range): BP systolic 150–161; BP diastolic 88–93; PULSE 88–91; RESP 16; O2SAT 92–98
[2023-03-12] MEDS: Olopatadine 0.1% OPHTH SOL 5 ML BTL OU (00:46)
[2023-03-12] MEDS: methylPREDNISolone SUCC 125 MG VIAL 60 MG IVP (00:46)
--- NOTE | 2023-03-12 01:33 | W.ED.GENAD ---
HPI General Stated Complaint: Allergic KAYLYN: 3 Date/Time Provider Initiated Documentation: 03/11/23 23:56. HPI Narrative: The patient is a 67-year-old male, with a past medical history significant for myasthenia gravis, who presents to the emergency department this evening with complaints of eye swelling, and a sensation of some right-sided neck swelling which she identifies as a discrete palpable mass underneath his mandible. The patient tells me that the symptoms began yesterday afternoon but continue to worsen into the evening. The patient initially said that he was concerned that he might have an allergic reaction or botulism poisoning related to eating canned peaches from his . However, the patient then told me that he ate those peaches approximately 36 hours ago. His concern was that the peaches cause some mild burning and tingling on the right side of his mouth when he was eating them. The patient denies having any known contact with an irritant that he might have rubbed in his eyes. The patient denies any new medications or changes in medications. The patient did take 2 pink Benadryl tablets prior to coming to the emergency room. Of note, the patient's allergies list diphenhydramine as inducing myasthenia gravis crisis in the past. The patient denies any shortness of breath, difficulty breathing, or obvious weakness at this time. Related Data Home Medications Medication Instructions Recorded Confirmed albuterol sulfate 90 mcg/actuation 1 puff inhalation ONCE 04/01/22 02/24/23 aerosol inhaler budesonide-formoterol HFA 160 2 puff inhalation BID 04/01/22 02/24/23 mcg-4.5 mcg/actuation aerosol inhaler (Symbicort) Lactobacillus acidophilus 10 10 cell PO DAILY 04/16/22 02/24/23 billion cell capsule (Probiotic) cetirizine 10 mg tablet (Zyrtec) 10 mg PO HS 04/16/22 02/24/23 cholecalciferol (vitamin D3) 25 25 mcg PO DAILY 04/16/22 02/24/23 mcg (1,000 unit) capsule (Vitamin D3) [id number] 150 mcg-vit K1 1 tab PO DAILY 04/16/22 02/24/23 30 mcg-lycop 300 mcg-lutein tablet (Centrum Minis Men 50 Plus) omeprazole 20 mg capsule,delayed 20 mg PO HS 04/16/22 02/24/23 release fluticasone propionate 50 1 spray intranasal BID 05/10/22 02/24/23 mcg/actuation nasal spray,suspension loperamide 2 mg capsule (Imodium 2 mg PO DAILY 05/10/22 02/24/23 A-D) cyclobenzaprine 10 mg tablet 10 mg PO HS PRN 06/09/22 02/24/23 donepezil 10 mg tablet 10 mg PO QHS #90 tabs 09/30/22 02/24/23 albuterol sulfate 1.25 mg/3 mL 1.25 mg (3 mL) inhalation QID PRN 12/06/22 02/24/23 solution for nebulization shortness of breath or wheezing #300 mL ketoconazole 2 % topical cream 1 applic topical DAILY 3 months 01/11/23 02/24/23 #60 grams aspirin 81 mg tablet,delayed See Rx Instructions .Route 02/14/23 02/24/23 release .COMPLEX #90 tabs buspirone 5 mg tablet See Rx Instructions .Route 02/14/23 02/24/23 .COMPLEX #60 tabs thiamine HCl (vitamin B1) 100 mg 100 mg PO DAILY #30 tabs 02/14/23 02/24/23 tablet fluoxetine 20 mg tablet 40 mg (2 x 20 mg) PO DAILY #60 tabs 02/15/23 02/24/23 nortriptyline 25 mg capsule 75 mg (3 x 25 mg) PO DAILY #90 caps 02/24/23 02/24/23 pyridostigmine bromide 60 mg/5 mL 60 mg (5 mL) PO TID 90 days #1,350 03/08/23 oral syrup mL prednisone 20 mg tablet 20 mg PO DAILY #4 tabs 03/12/23 Previous Rx's Medication Instructions Recorded donepezil 10 mg tablet 10 mg PO QHS #90 tabs 09/30/22 albuterol sulfate 1.25 mg/3 mL 1.25 mg (3 mL) inhalation QID PRN 12/06/22 solution for nebulization shortness of breath or wheezing #300 mL ketoconazole 2 % topical cream 1 applic topical DAILY 3 months 01/11/23 #60 grams aspirin 81 mg tablet,delayed See Rx Instructions .Route 02/14/23 release .COMPLEX #90 tabs buspirone 5 mg tablet See Rx Instructions .Route 02/14/23 .COMPLEX #60 tabs thiamine HCl (vitamin B1) 100 mg 100 mg PO DAILY #30 tabs 02/14/23 tablet fluoxetine 20 mg tablet 40 mg (2 x 20 mg) PO DAILY #60 tabs 02/15/23 nortriptyline 25 mg capsule 75 mg (3 x 25 mg) PO DAILY #90 caps 02/24/23 pyridostigmine bromide 60 mg/5 mL 60 mg (5 mL) PO TID 90 days #1,350 03/08/23 oral syrup mL prednisone 20 mg tablet 20 mg PO DAILY #4 tabs 03/12/23 Allergies Allergy/AdvReac Type Severity Reaction Status Date / Time diphenhydramine AdvReac Intermediate Myasthenia Unverified 02/24/23 08:41 [From Benadryl] Gravis Crisis Aminoglycosides AdvReac Unknown Myasthenia Unverified 02/24/23 08:41 Gravis Flare Macrolide Antibiotics AdvReac Unknown Unverified 02/24/23 08:41 magnesium AdvReac Unknown upset Uncoded 02/24/23 08:41 stomach PFSH All Active Problems (Updated 03/12/23 @ 05:52 by José Luis King MD) Myasthenia gravis with exacerbation, ocular (Acute) Acute allergic conjunctivitis of both eyes (Acute) Bursitis of hip (Acute) RT hip pain, with Hx bursitis x years (Hx injections)(Hx rt hip injury 10yrs ago) Asthma (Chronic) PFT, 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 per [facility].? Anxiety (Chronic) Hyperlipidemia (Acute) GERD (gastroesophageal reflux disease) (Chronic) Benign prostatic hyperplasia (Chronic) Chronic cough (Chronic) Raynauds disease (Acute) will turn white when outside .. recomm: vest/hat when outdoors [cristino gloves, per research], 05/2022, ik Hypertension (Chronic) Multiple nodules of lung (Chronic) Stable completed yearly from [id number] Memory loss (Acute) MOCA , Mar 2021 .. poor short-term memory per Cardio notes. Myasthenia gravis (Acute) Acute Ocular MG, per Dr. PIZANO, 05/2022. Mestinon started/increased. [ ] Ophtho, [ ] [facility] (Ab NEG, but Dx seems (+)) Ptosis of right eyelid (Acute) 08/09/22 [facility] [place] Ocular myasthenia gravis (Acute) 08/09/22 [facility] [place] Daily consumption of alcohol (Acute) Reduced, no wine, 2 ciders.. 09/03/22, ik High risk medication use (Chronic) Medications to avoid in myasthenia gravis include antibiotics such as aminoglycosides, Bacitracin, Clindamycin, Quinolones, macrolides and Tetracycline; Antiarrhythmic medications are also contraindicated - Beta blockers and calcium channel blockers should be used with caution; Statins, quinine medications, Dilantin, [place] and antispasmodics that fall into the anticholinergic category should also be avoided; Inhaled anesthetics and neuromuscular blocking agents, including Botox should also be avoided. Dehydration (Acute) Tendency to drink coffee .. Onychomycosis (Acute) Dystrophy of nail due to trauma (Acute) Medical History (Updated 03/12/23 @ 05:52 by José Luis King MD) PND (post-nasal drip) Family history of hypertension in father Family history of diabetes mellitus with ketoacidosis Elevated gluc in hosp, but WNL A1C (5.1)().. Mat & Paternal sides (unclear if ketoacidosis) Family history of breast cancer Mo/Maternal? 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 IBS (irritable bowel syndrome) Diet ctlld (immed diarrhea w/ Magn)(kaylin sauce)(high fiber foods) .. Vit D & Probiotic seems to help. Lyme disease (12/16/20) Doxy x 1 week <-- x2 ?? Fibromyalgia Surgical History (Updated 02/16/23 @ 11:51 by Jacque Lassiter DO) H/O repair of rotator cuff (~06/10/22) Rupture of right supraspinatus tendon Right shoulder arthroscopy with rotator cuff repair (supraspinatus), biceps tenodesis, extensive debridement, and subacromial decompression 06/10/22 S/P right knee arthroscopy History of tonsillectomy (~1960) History of appendectomy (~1960) Social History Smoking/Tobacco Use Status: Former Tobacco Use Quit Date: 03/07/89 Tobacco: How many years used: 30 Quit status: quit date established Smoking risk assessment performed?: Yes Alcohol Intake: current Alcohol Intake frequency: 3 or more drinks per day Alcohol type: beer and other Drug use: Never Substance use type: does not use Counseling given: No Counseling provided: none Adopted: No Caregiver/Support person: No Foster care: No Household members: spouse Housing: house Communication Needs: None Education Level: high school Do you need help understanding health information?: Never current occupation: Retired Pets and animals: Yes Pets and animals: cat(s) Sexually active: Yes Do you think of yourself as: straight/heterosexual Current gender identity: male What is your relationship status?: How often do you talk on the phone with friends or family?: three or more times per week How often do you get together with friends or relatives?: three or more times per week Do you belong to any clubs or organized social groups?: no Panel score (0-1 are the most socially isolated patients): 2 What type of physical activity do you participate in: walking Duration: 45-60 minutes/day Frequency: daily Bonnie/Evangelical: None Special bonnie needs: No Seatbelt use: always Drive intox or ride w/intox spotter driver: No Do you feel safe at home: Yes Do you feel safe in your relationship?: Yes Additional Social history: Unable to assess privately PAWSS Have you Been Recently Intoxicated or Drunk Within the Last 30 days?: No Have you Ever Experienced Previous Episodes of Alcohol Withdrawal?: No Have you ever Experienced Withdrawal Seizures?: No Have you ever Experienced Delirium Tremens(DT)s?: No Have you ever undergone Alcohol Rehabilitation Treatment (i.e, inpt ot outpatient treatment programs)?: No Have you ever Experienced Blackouts?: No Have you ever Combined Alcohol with other Downers within the last 90 days?: No Have you ever Combined Alcohol with any other Substance of Abuse during the last 90 days?: No Positive Blood Alcohol level on Presentation? [PCS.BAL]: Unable to Obtain Evidence of Increased Autonomic Activity (i.e. HR>120, tremor, sweating, agitation, nausea)?: No Result: 0 Exam Eyes Other: There is some bilateral pre-orbital soft tissue swelling with some mild erythema. There is marked edema of the conjunctiva of the right eye with some slightly reduced edema of the conjunctiva of the left eye. Neck Other: The swelling the patient identifies in his right neck is a submandibular salivary gland. It is nontender and feels bilaterally symmetrical with the contralateral side. Resp Other: The patient has clear bilateral breath sounds with no difficulty with inspiration. Cardio Other: Heart sounds reveal a normal S1 normal S2 with a normal rate. Neuro Other: Patient has normal tone and normal sensation by gross examination and his own reporting. He denies having any focal weakness or difficulty with movement. The patient is ambulating normally and transferring between a chair and bed without difficulty. Course Reevaluation(s) Initial Evaluation: The patient was reevaluated at 0530, and was found to have significantly improved allergic conjunctival findings. He has almost complete resolution of the swelling of the conjunctiva on both sides of the eyes. The patient does report that he has some mild blurriness in the right eye, which is most likely ciliaris muscle weakness related to the diphenhydramine use, which is most likely caused some mild myasthenia gravis exacerbation. I will recommend that the patient continue to use the topical antihistamine in his eyes and will provide him with a 4-day burst of oral prednisone. I encouraged him to follow-up with his regular provider for reevaluation and further management if needed. Vital Signs Vital signs: Vital Signs Temperature 37 C 03/11/23 23:56 Pulse 87 03/11/23 23:56 Respiratory Rate 18 03/11/23 23:56 Blood Pressure 156/107 H 03/11/23 23:56 Pulse Oximetry 97 03/11/23 23:56 Temperature 37 C 03/11/23 23:56 Temperature Source Temporal Artery Scan 03/11/23 23:56 Pulse 87 03/11/23 23:56 Respiratory Rate 18 03/11/23 23:56 Respiratory Effort Normal, Non-Labored 03/12/23 00:00 Respiratory Pattern Normal 03/12/23 00:00 Blood Pressure 156/107 H 03/11/23 23:56 Pulse Oximetry 97 03/11/23 23:56 Oxygen Delivery Method Room Air 03/11/23 23:56 Oxygen Flow Rate 0 03/11/23 23:56 Pain Level 0 03/11/23 23:56 Medical Decision Making The patient was seen and examined. He appears to have an allergic conjunctivitis with some diffuse edema of the conjunctiva and some swelling of the preorbital soft tissues. The submandibular node is easily identifiable and is symmetric bilaterally. There is no swelling of the soft tissues of the neck or throat to direct visual inspection. My biggest concern at this time is that the patient took oral diphenhydramine which reportedly has in the past caused a myasthenia gravis crisis. The patient was given a half dose of IV Solu-Medrol to hopefully improve or prevent any reactivation of his myasthenia gravis. The patient was given a topical antihistamine drop to his eyes and will be observed for improvement here in the emergency room. The patient will be monitored for at least 6 hours to ensure that he does not have any significant decompensation before being discharged. Quality:[facility] Health Related Social Needs: No Data to Display Discharge Plan Disposition Patient Disposition: Home Discharge Details Clinical Impression: Acute allergic conjunctivitis of both eyes, Myasthenia gravis with exacerbation, ocular Primary Care Provider: Jacque Lassiter ED Provider: José Luis King Home Meds and New Rx's Prescriptions: New prednisone 20 mg tablet 20 mg PO DAILY Qty: 4 0RF No Action albuterol sulfate 90 mcg/actuation HFA aerosol inhaler 1 puff inhalation ONCE budesonide-formoterol [Symbicort] 160-4.5 mcg/actuation HFA aerosol inhaler 2 puff inhalation BID cyclobenzaprine 10 mg tablet 10 mg PO HS PRN donepezil 10 mg tablet 10 mg PO QHS Qty: 90 3RF albuterol sulfate 1.25 mg/3 mL solution for nebulization 1.25 mg inhalation QID PRN (Reason: shortness of breath or wheezing) Qty: 300 12RF nortriptyline 25 mg capsule 75 mg PO DAILY Qty: 90 3RF Rx Instructions: per previous pcp fluticasone propionate 50 mcg/actuation spray,suspension 1 spray intranasal BID Rx Instructions: administer into each nostril loperamide [Imodium A-D] 2 mg capsule 2 mg PO DAILY ketoconazole 2 % cream 1 applic topical DAILY 90 Days Qty: 60 0RF Rx Instructions: Apply to toenails once daily aspirin 81 mg tablet,delayed release (DR/EC) See Rx Instructions .ROUTE .COMPLEX Qty: 90 1RF Dose Instruction: TAKE 1 TABLET BY MOUTH ONCE DAILY Rx Instructions: TAKE 1 TABLET BY MOUTH ONCE DAILY thiamine HCl (vitamin B1) 100 mg tablet 100 mg PO DAILY Qty: 30 3RF buspirone 5 mg tablet See Rx Instructions .ROUTE .COMPLEX Qty: 60 1RF Dose Instruction: TAKE 1 TABLET BY MOUTH TWICE DAILY Rx Instructions: TAKE 1 TABLET BY MOUTH TWICE DAILY fluoxetine 20 mg tablet 40 mg PO DAILY MDD 40mg Qty: 60 3RF Rx Instructions: RE-trial 30mg x1week,then 40mg pyridostigmine bromide 60 mg/5 mL syrup 60 mg PO TID 90 Days Qty: 1350 3RF cetirizine [Zyrtec] 10 mg Tablet 10 mg PO HS cholecalciferol (vitamin D3) [Vitamin D3] 25 mcg (1,000 unit) Capsule 25 mcg PO DAILY Probiotic 10 billion cell Capsule 10 cell PO DAILY Centrum Minis Men 50 Plus [id number] mcg Tablet 1 tab PO DAILY omeprazole 20 mg Capsule,Delayed Release(Dr/Ec) 20 mg PO HS Discharge Instructions Instructions: Conjunctivitis (ED) Additional Instructions: Place one drop of the Olopatadine liquid in each eye, twice a day (morning and night) for the next 3 days, beginning today. Take 1 prednisone tablet every day for the next 4 days. Contact and follow-up with your regular primary care provider to discuss your presentation and any further changes that are needed regarding your myasthenia gravis. You can always return to the ER for any new concerns or sudden changes in your health which you feel require emergency medical attention. Discharge Data Discharge Physician: José Luis King
== END 2023-03-12 06:04 | disposition home or self-care (01) ==
PROVIDERS: Emergency Provider Emergency Medicine Emergency Medical Services; PCP Student in an Organized Health Care Education/Training Program
DX: H10.13 Acute atopic conjunctivitis, bilateral (principal); G70.01 Myasthenia gravis with (acute) exacerbation; I10 Essential (primary) hypertension
CPT/HCPCS: 96374; 99284; 99283; J2930

== ENCOUNTER → 2023-03-31 08:14 | Outpatient (BNVA) | payer MEDICARE, OTHER, SELFPAY | PROVIDERS: PCP Student in an Organized Health Care Education/Training Program; Visit Provider Psychiatry & Neurology Neurology | DX: R41.3 Other amnesia (principal); F10.10 Alcohol abuse, uncomplicated; I67.82 Cerebral ischemia; H53.2 Diplopia | CPT/HCPCS: 99214 ==

== ENCOUNTER 2023-04-11 17:18 | Emergency (ER) | payer MEDICARE, OTHER, SELFPAY ==
[2023-04-11 17:23] VITALS: BP 142/89; PULSE 91; RESP 17; TEMP 36.8; O2SAT 99
--- NOTE | 2023-04-11 17:27 | W.ED.GENAD ---
HPI General Date/Time Provider Initiated Documentation: 04/11/23 17:26. HPI Narrative: 67 year-old male presents to ED today by POV/ambulating with a chief complaint of cat bite- his cat bit him while he was taking it out of the crate at the vet, communication consultant encouraged evaluation for antibiotics with onset just prior to arrival. Minor bites to R hand, R-hand dominant, no active bleeding. Quality described as minor punctures, no radiation to red streaking, purulent drainage, foreign body sensation. Severity is described as minor. Palliating factors include nothing specific attempted. Provoking factors include nothing specific. Patient not anticoagulated. Related Data Home Medications Medication Instructions Recorded Confirmed albuterol sulfate 90 mcg/actuation 1 puff inhalation ONCE 04/01/22 04/11/23 aerosol inhaler budesonide-formoterol HFA 160 2 puff inhalation BID 04/01/22 04/11/23 mcg-4.5 mcg/actuation aerosol inhaler (Symbicort) Lactobacillus acidophilus 10 10 cell PO DAILY 04/16/22 04/11/23 billion cell capsule (Probiotic) cetirizine 10 mg tablet (Zyrtec) 10 mg PO HS 04/16/22 04/11/23 cholecalciferol (vitamin D3) 25 25 mcg PO DAILY 04/16/22 04/11/23 mcg (1,000 unit) capsule (Vitamin D3) [id number] 150 mcg-vit K1 1 tab PO DAILY 04/16/22 04/11/23 30 mcg-lycop 300 mcg-lutein tablet (Centrum Minis Men 50 Plus) omeprazole 20 mg capsule,delayed 20 mg PO HS 04/16/22 04/11/23 release fluticasone propionate 50 1 spray intranasal BID 05/10/22 04/11/23 mcg/actuation nasal spray,suspension loperamide 2 mg capsule (Imodium 2 mg PO DAILY 05/10/22 04/11/23 A-D) cyclobenzaprine 10 mg tablet 10 mg PO HS PRN 06/09/22 04/11/23 donepezil 10 mg tablet 10 mg PO QHS #90 tabs 09/30/22 04/11/23 albuterol sulfate 1.25 mg/3 mL 1.25 mg (3 mL) inhalation QID PRN 12/06/22 04/11/23 solution for nebulization shortness of breath or wheezing #300 mL aspirin 81 mg tablet,delayed See Rx Instructions .Route 02/14/23 04/11/23 release .COMPLEX #90 tabs buspirone 5 mg tablet See Rx Instructions .Route 02/14/23 04/11/23 .COMPLEX #60 tabs thiamine HCl (vitamin B1) 100 mg 100 mg PO DAILY #30 tabs 02/14/23 04/11/23 tablet fluoxetine 20 mg tablet 40 mg (2 x 20 mg) PO DAILY #60 tabs 02/15/23 04/11/23 nortriptyline 25 mg capsule 75 mg (3 x 25 mg) PO DAILY #90 caps 02/24/23 04/11/23 memantine 5 mg tablet 5 mg PO BID #60 tabs 03/31/23 04/11/23 pyridostigmine bromide 60 mg tablet 60 mg PO TID #270 tabs 03/31/23 04/11/23 amoxicillin 875 mg-potassium 1 tab PO BID cat bite 7 days #14 04/11/23 clavulanate 125 mg tablet tabs Previous Rx's Medication Instructions Recorded donepezil 10 mg tablet 10 mg PO QHS #90 tabs 09/30/22 albuterol sulfate 1.25 mg/3 mL 1.25 mg (3 mL) inhalation QID PRN 12/06/22 solution for nebulization shortness of breath or wheezing #300 mL aspirin 81 mg tablet,delayed See Rx Instructions .Route 02/14/23 release .COMPLEX #90 tabs buspirone 5 mg tablet See Rx Instructions .Route 02/14/23 .COMPLEX #60 tabs thiamine HCl (vitamin B1) 100 mg 100 mg PO DAILY #30 tabs 02/14/23 tablet fluoxetine 20 mg tablet 40 mg (2 x 20 mg) PO DAILY #60 tabs 02/15/23 nortriptyline 25 mg capsule 75 mg (3 x 25 mg) PO DAILY #90 caps 02/24/23 memantine 5 mg tablet 5 mg PO BID #60 tabs 03/31/23 pyridostigmine bromide 60 mg tablet 60 mg PO TID #270 tabs 03/31/23 amoxicillin 875 mg-potassium 1 tab PO BID cat bite 7 days #14 04/11/23 clavulanate 125 mg tablet tabs Allergies Allergy/AdvReac Type Severity Reaction Status Date / Time diphenhydramine AdvReac Intermediate Myasthenia Unverified 03/31/23 08:16 [From Benadryl] Gravis Crisis Aminoglycosides AdvReac Unknown Myasthenia Unverified 03/31/23 08:16 Gravis Flare Macrolide Antibiotics AdvReac Unknown Unverified 03/31/23 08:16 magnesium AdvReac Unknown upset Uncoded 03/31/23 08:16 stomach General Stated Complaint: AnimalBite KAYLYN: 4 Review of Systems All systems reviewed & are unremarkable except as noted in HPI and below Exam Narrative Exam Narrative: GENERAL APPEARANCE: Well-nourished, non-toxic, awake and alert, atraumatic, no acute distress. SKIN: Warm, pink, dry, intact, without rashes/lesions/ulcerations- 2 minor punctures at bite sites to R wrist/forearm, no active bleeding, no gross contamination, no foreign bodies. HEAD: Normocephalic, atraumatic, normal hair distribution for gender/age. EYES: Pupils PERRLA, EOMs intact without nystagmus, normal conjunctiva, no exudates on lids/lashes. ENT: Nares patent, no circumoral cyanosis, no facial swelling NECK: Supple, trachea midline, painless cervical ROM. LUNGS/CHEST: Non-labored respirations, normal A/P diameter, symmetrical expansion, no chest wall deformity HEART (CV/PV): Regular rate, R radial pulse 2+, no peripheral edema, no JVD. ABDOMEN: Soft, non-distended, no guarding. MSK: Normal ROM, no swelling/deformity to bilateral UEs or LEs, moving all extremities without weakness, no cyanosis, spine midline without tenderness, normal curvature. NEURO: Mental Status AAOx4 - alert to person, place, time, events No facial droop, no forehead involvement. Motor: No focal weakness - strength 5/5 in bilateral UEs and LEs, proximal and distal, symmetric. Sensory: sensation intact to light touch globally. Gait normal: patient ambulated without ataxia into ED room. PSYCH: euthymic, cooperative, pleasant, appropriate speech Course Vital Signs Vital signs: Vital Signs Temperature 36.8 C 04/11/23 17:23 Pulse 91 H 04/11/23 17:23 Respiratory Rate 17 04/11/23 17:23 Blood Pressure 142/89 H 04/11/23 17:23 Pulse Oximetry 99 04/11/23 17:23 Temperature 36.8 C 04/11/23 17:23 Temperature Source Temporal Artery Scan 04/11/23 17:23 Pulse 91 H 04/11/23 17:23 Respiratory Rate 17 04/11/23 17:23 Blood Pressure 142/89 H 04/11/23 17:23 Blood Pressure Position Supine 04/11/23 17:23 Pulse Oximetry 99 04/11/23 17:23 Oxygen Delivery Method Room Air 04/11/23 17:23 Oxygen Flow Rate 0 04/11/23 17:23 Medical Decision Making This dictation utilizes [id number] dictation software and may contain unedited grammatical errors. 67 y/o M presents to ED today with a chief complaint of minor cat bite while he was taking his cat to the vet. Minor punctures to R forearm, no red streakin, onset just prior to arrival. Patients' medical history: noncontributory. Family and social history: noncontributory. Pertinent exam findings / vital signs include 2 minor punctures at bite sites to R wrist/forearm, no active bleeding, no gross contamination, no foreign bodies.. Differential / pathologies of concern include cat bite, not foreign body. Diagnostic studies of: -none. Interventions of: -Rx Augmentin, Tdap is UTD 02/26. ED Course/Assessment/Plan: 67-year-old male presents with a cat bite, his cat is up-to-date on shots he was taking it out with a crate at the communication consultant's office when he suffered some minor bites to his right forearm and wrist, cleaned the wound aggressively with BCX sponge, recommend Tylenol and ibuprofen for pain and prescribed Augmentin for animal bite. Recommend return criteria for worsening signs of infection. Findings not consistent with foreign body, infected wound. Disposition of cat bite of right hand. Patient verbalized understanding of the plan and return to ED criteria and engaged in shared decision making. Medical Records Medical records reviewed: Yes I reviewed the patient's medical records. 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 per [facility] Neuro.? Anxiety (Chronic) Hyperlipidemia (Acute) GERD (gastroesophageal reflux disease) (Chronic) Benign prostatic hyperplasia (Chronic) Chronic cough (Chronic) Raynauds disease (Acute) will turn white when outside .. recomm: vest/hat when outdoors [vs gloves, per research], 05/2022, ik Hypertension (Chronic) Multiple nodules of lung (Chronic) Stable completed yearly from 8130-7894 Memory loss (Acute) MOCA , Mar 2021 .. poor short-term memory per Cardio notes. Myasthenia gravis (Acute) Acute Ocular MG, per Dr. PIZANO, 05/2022. Mestinon started/increased. [ ] Ophtho, [ ] [facility] [place] Neuro (Ab NEG, but Dx seems (+)) Ptosis of right eyelid (Acute) 08/09/22 [facility] [place] Neurology note Ocular myasthenia gravis (Acute) 08/09/22 [facility] [place] Neurology note Daily consumption of alcohol (Acute) Reduced, no wine, 2 ciders.. 09/03/22, ik High risk medication use (Chronic) Medications to avoid in myasthenia gravis include antibiotics such as aminoglycosides, Bacitracin, Clindamycin, Quinolones, macrolides and Tetracycline; Antiarrhythmic medications are also contraindicated - Beta blockers and calcium channel blockers should be used with caution; Statins, quinine medications, Dilantin, [place] and antispasmodics that fall into the anticholinergic category should also be avoided; Inhaled anesthetics and neuromuscular blocking agents, including Botox should also be avoided. Dehydration (Acute) Tendency to drink coffee .. Onychomycosis (Acute) Dystrophy of nail due to trauma (Acute) Medical History PND (post-nasal drip) Family history of hypertension in father Family history of diabetes mellitus with ketoacidosis Elevated gluc in hosp, but WNL A1C (5.1)(.2022).. Mat & Paternal sides (unclear if ketoacidosis) Family history of breast cancer Mo/Maternal? 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 IBS (irritable bowel syndrome) Diet ctlld (immed diarrhea w/ Magn)(kaylin sauce)(high fiber foods) .. Vit D & Probiotic seems to help. Lyme disease (12/16/20) Doxy x 1 week <-- x2 ?? Fibromyalgia Surgical History H/O repair of rotator cuff (~06/10/22) Rupture of right supraspinatus tendon Right shoulder arthroscopy with rotator cuff repair (supraspinatus), biceps tenodesis, extensive debridement, and subacromial decompression 06/10/22 S/P right knee arthroscopy History of tonsillectomy (~1960) History of appendectomy (~1960) Social History Smoking/Tobacco Use Status: Former Tobacco Use Quit Date: 03/07/89 Tobacco: How many years used: 30 Quit status: quit date established Smoking risk assessment performed?: Yes Alcohol Intake: current Alcohol Intake frequency: 3 or more drinks per day Alcohol type: beer and other Drug use: Never Substance use type: does not use Counseling given: No Counseling provided: none Adopted: No Caregiver/Support person: No Foster care: No Household members: spouse Housing: house Communication Needs: None Education Level: high school Do you need help understanding health information?: Never current occupation: Retired Pets and animals: Yes Pets and animals: cat(s) Sexually active: Yes Do you think of yourself as: straight/heterosexual Current gender identity: male What is your relationship status?: How often do you talk on the phone with friends or family?: three or more times per week How often do you get together with friends or relatives?: three or more times per week Do you belong to any clubs or organized social groups?: no Panel score (0-1 are the most socially isolated patients): 2 What type of physical activity do you participate in: walking Duration: 45-60 minutes/day Frequency: daily Bonnie/Scientologist: None Special bonnie needs: No Seatbelt use: always Drive intox or ride w/intox stock car driver: No Do you feel safe at home: Yes Do you feel safe in your relationship?: Yes Additional Social history: Unable to assess privately Discharge Plan Disposition Patient Disposition: Home Condition: Stable Discharge Details Clinical Impression: Cat bite of right hand Primary Care Provider: Jacque Lassiter ED Provider: Bill Villa Home Meds and New Rx's Prescriptions: New amoxicillin-pot clavulanate 875-125 mg tablet 1 tab PO BID 7 Days Qty: 14 0RF Continued albuterol sulfate 90 mcg/actuation HFA aerosol inhaler 1 puff inhalation ONCE budesonide-formoterol [Symbicort] 160-4.5 mcg/actuation HFA aerosol inhaler 2 puff inhalation BID cyclobenzaprine 10 mg tablet 10 mg PO HS PRN donepezil 10 mg tablet 10 mg PO QHS Qty: 90 3RF albuterol sulfate 1.25 mg/3 mL solution for nebulization 1.25 mg inhalation QID PRN (Reason: shortness of breath or wheezing) Qty: 300 12RF nortriptyline 25 mg capsule 75 mg PO DAILY Qty: 90 3RF Rx Instructions: per previous pcp pyridostigmine bromide 60 mg tablet 60 mg PO TID Qty: 270 3RF Rx Instructions: Take am, noon, and later afternoon memantine 5 mg tablet 5 mg PO BID Qty: 60 5RF fluticasone propionate 50 mcg/actuation spray,suspension 1 spray intranasal BID Rx Instructions: administer into each nostril loperamide [Imodium A-D] 2 mg capsule 2 mg PO DAILY aspirin 81 mg tablet,delayed release (DR/EC) See Rx Instructions .ROUTE .COMPLEX Qty: 90 1RF Dose Instruction: TAKE 1 TABLET BY MOUTH ONCE DAILY Rx Instructions: TAKE 1 TABLET BY MOUTH ONCE DAILY thiamine HCl (vitamin B1) 100 mg tablet 100 mg PO DAILY Qty: 30 3RF buspirone 5 mg tablet See Rx Instructions .ROUTE .COMPLEX Qty: 60 1RF Dose Instruction: TAKE 1 TABLET BY MOUTH TWICE DAILY Rx Instructions: TAKE 1 TABLET BY MOUTH TWICE DAILY fluoxetine 20 mg tablet 40 mg PO DAILY MDD 40mg Qty: 60 3RF Rx Instructions: RE-trial 30mg x1week,then 40mg cetirizine [Zyrtec] 10 mg Tablet 10 mg PO HS cholecalciferol (vitamin D3) [Vitamin D3] 25 mcg (1,000 unit) Capsule 25 mcg PO DAILY Probiotic 10 billion cell Capsule 10 cell PO DAILY Centrum Minis Men 50 Plus [phone] mcg Tablet 1 tab PO DAILY omeprazole 20 mg Capsule,Delayed Release(Dr/Ec) 20 mg PO HS Discharge Instructions Instructions: Amoxicillin/Clavulanate Potassium (By mouth), Animal Bite (ED) Additional Instructions: You were seen in the emergency department for the Bite of your right hand, your cat is up-to-date on shots, in our records it shows that you had a Tdap update on 02/24/2023. Please double check this with your doctor, you have a few days to update your tetanus and a nonemergent manner if you do need the immunization but it is likely that you received a shot during your hospitalization. Keep the wounds clean and take the prescribed Augmentin sent to [facility] in [place] as directed. Take Tylenol and ibuprofen for pain. Please return to the ER for worsening signs of infection like drainage of pus from the wounds, spreading redness up the arm, red streaks up the arm, painful swellings in the armpit. Referrals: Jacque Lassiter DO [Primary Care Provider] - Discharge Data Discharge Date/Time-TO BE ENTERED AT DEPARTURE: 04/11/23 18:10
[2023-04-11] MEDS: Amoxicillin 875/Clav. 125 TAB PO (18:07)
[2023-04-11 18:10] VITALS: PULSE 78; RESP 16; O2SAT 99
== END 2023-04-11 18:10 | disposition home or self-care (01) ==
PROVIDERS: Emergency Provider Physician Assistant; PCP Student in an Organized Health Care Education/Training Program
DX: S61.431A Puncture wound without foreign body of right hand, initial encounter (principal); I10 Essential (primary) hypertension; E78.5 Hyperlipidemia, unspecified; Z79.82 Long term (current) use of aspirin; Z87.891 Personal history of nicotine dependence; W55.01XA Bitten by cat, initial encounter; Y93.K9 Activity, other involving animal care; Y92.89 Other specified places as the place of occurrence of the external cause
CPT/HCPCS: 99283

== ENCOUNTER 2023-05-24 15:54 | Outpatient (CLI) | payer MEDICARE, OTHER, SELFPAY ==
--- NOTE | 2023-05-24 09:30 | DI.RAD_ITS ---
Exam(s) XR SHOULDER RT COMPLETE 2+V EXAM: XR SHOULDER RT COMPLETE 2+V CLINICAL HISTORY: RIGHT SHOULDER PAIN. TECHNIQUE: 2D digital imaging was performed. Five views. COMPARISON: MR MR UPPER JOINT RT WO from 04/23/2022 FINDINGS: BONES: No acute fracture is present. No bony destructive lesion is seen. JOINTS: No dislocation present.Mild degenerative changes of the AC joint. Glenohumeral joint is main tained. SOFT TISSUE: Normal. IMPRESSION: Mild degenerative changes. DATA REPOSITORY: RADIATION DOSE DELIVERED:
== END 2023-05-24 15:55 | disposition home or self-care (01) ==
LOC: DIORS 15:54
PROVIDERS: PCP Student in an Organized Health Care Education/Training Program; Visit Provider Student in an Organized Health Care Education/Training Program
DX: S46.011A Strain of muscle(s) and tendon(s) of the rotator cuff of right shoulder, initial encounter; M75.21 Bicipital tendinitis, right shoulder; X58.XXXA Exposure to other specified factors, initial encounter
CPT/HCPCS: 99213; 73030

== ENCOUNTER → 2023-06-08 03:39 | Outpatient (CLI) | payer MEDICARE, OTHER, SELFPAY ==
--- NOTE | 2023-06-08 08:15 | DI.MRI_ITS ---
Exam(s) MR UPPER JOINT RT WO EXAM: MR UPPER JOINT RT WO CLINICAL HISTORY: pain,tendonitis biceps brachi,rupture rt supraspinatus tendon,s46.011a,. TECHNIQUE: Multiplanar multisequence MRI was performed. COMPARISON: MR MR UPPER JOINT RT WO from 04/23/2022 CR XR SHOULDER RT COMPLETE 2+V from 05/24/2023 FINDINGS: BONES: There is no fracture or contusion pattern. JOINTS: Mild degenerative changes are seen at the acromioclavicular joint. The glenohumeral joint is normal. TENDONS: Supraspinatus: The patient has had a prior supraspinatus tendon repair Fluid in the subacromial subdeltoid bursa. There is a full-thickness tear of the supraspinatus tendo n seen at its insertion site anteriorly. (Series [id number] image 7). There is retraction of the torn tendon. (Series 6001, image 18). There is underlying thickening and intermediate signal of the supr aspinatus tendon suggesting tendinosis. Infraspinatus: Unremarkable. Subscapularis: Tendinosis of the subscapularis tendon without evidence of a tear. Teres Minor: Unremarkable. Biceps and [place]: Unremarkable. MUSCLES: Unremarkable. GLENOID LABRUM: Unremarkable on this noncontrast examination. SOFT TISSUES: Unremarkable. LIGAMENTS: Unremarkable. OTHER: There is fluid seen in the subacromial subdeltoid bursa. IMPRESSION: 1. Findings of a full-thickness supraspinatus tendon tear anteriorly with retraction. 2. Subscapularis tendinosis. 3. Degenerative changes seen at the acromioclavicular joint. 4. Findings of a prior supraspinatus tendon repair. DATA REPOSITORY:
== END ==
PROVIDERS: PCP Student in an Organized Health Care Education/Training Program; Visit Provider Student in an Organized Health Care Education/Training Program
DX: M75.21 Bicipital tendinitis, right shoulder (principal); S46.011A Strain of muscle(s) and tendon(s) of the rotator cuff of right shoulder, initial encounter
CPT/HCPCS: 73221

== ENCOUNTER → 2023-06-08 11:08 | Outpatient (BNVA) | payer MEDICARE, OTHER, SELFPAY | PROVIDERS: PCP Student in an Organized Health Care Education/Training Program; Referring Provider Student in an Organized Health Care Education/Training Program; Visit Provider Physician Assistant Surgical | DX: J45.909 Unspecified asthma, uncomplicated (principal); K21.9 Gastro-esophageal reflux disease without esophagitis; R91.8 Other nonspecific abnormal finding of lung field | CPT/HCPCS: 99214; 73221 ==

== ENCOUNTER → 2023-06-14 09:50 | Outpatient (BNVA) | payer MEDICARE, OTHER, SELFPAY | PROVIDERS: PCP Student in an Organized Health Care Education/Training Program; Referring Provider Student in an Organized Health Care Education/Training Program; Visit Provider Student in an Organized Health Care Education/Training Program | DX: X58.XXXA Exposure to other specified factors, initial encounter (principal); S46.011A Strain of muscle(s) and tendon(s) of the rotator cuff of right shoulder, initial encounter; M75.21 Bicipital tendinitis, right shoulder | CPT/HCPCS: 99214 ==

== ENCOUNTER 2023-06-20 05:52 | Outpatient (CLI) | payer MEDICARE, OTHER, SELFPAY ==
[2023-06-20 14:05] LABS: Abs Immature Grans 0.03 10^3/uL (0.0-0.06); Absolute Basophil Count 0.05 10^3/uL (0.0-0.2); Absolute Eosinophil Count 0.23 10^3/uL (0.0-0.7); Absolute Lymphocyte Count 1.57 10^3/uL (1.2-3.4); Absolute Monocyte Count 0.71 10^3/uL (0.1-0.8); Absolute Neutrophil Count 2.92 10^3/uL (1.2-6.7); Basophils % 0.9; Eosinophils % 4.2; HCT 48.1 % (40.0-50.0); HGB 15.9 g/dL (13.5-17.5); Immature Grans % 0.5; Lymphocytes % 28.5; MCH 29.9 pg (27.0-33.0); MCHC 33.1 % (32.0-36.0); MCV 91 fL (80-95); MPV 11.1 fL (8.0-11.0); Monocytes % 12.9; Platelet Count 219 10^3/uL (130-400); RBC 5.31 10^6/uL (4.36-5.78); RDW 12.2 % (11.8-14.1); RDW-SD 40.3 fL; WBC 5.51 10^3/uL (4.4-10.8)
[2023-06-20 14:19] LABS: ESR < 1 mm/hr (0-20)
[2023-06-20 14:26] LABS: C-Reactive Protein < 0.50 mg/dL (<or=0.5)
== END 2023-06-20 05:53 | disposition home or self-care (01) ==
LOC: LBO 05:53
PROVIDERS: PCP Student in an Organized Health Care Education/Training Program; Visit Provider Student in an Organized Health Care Education/Training Program
DX: S46.011D Strain of muscle(s) and tendon(s) of the rotator cuff of right shoulder, subsequent encounter (principal); X58.XXXD Exposure to other specified factors, subsequent encounter
CPT/HCPCS: 36415; 85652; 85025; 86140

== ENCOUNTER 2023-07-21 09:00 | Day surgery (SDC) | payer MEDICARE, OTHER, SELFPAY ==
[2023-07-21] VITALS (10 sets, daily range): BP systolic 101–146; BP diastolic 63–101; PULSE 63–79; RESP 16–17; TEMP 36.3–36.8; O2SAT 94–98; BMI 27.0
--- NOTE | 2023-07-21 07:20 | PDOC.DSDIS_ITS ---
Date of service: 07/21/23 Time of Service: 15:00 Discharge Plan Disposition Patient Disposition: Home Condition: Stable Discharge Details Attending Provider: Cristopher Wilson Primary Care Provider: Jacque Lassiter Home Meds and New Rx's Prescriptions: New naproxen 250 mg tablet 250 - 500 mg PO BID PRNQty: 40 0RF Rx Instructions: take with a meal oxycodone 5 mg tablet 5 - 10 mg PO Q4H MDD 30 mg PRN (Reason: moderate to severe pain) Qty: 7 0RF Continued cyclobenzaprine 10 mg tablet 10 mg PO HS PRN donepezil 10 mg tablet 10 mg PO QHS Qty: 90 3RF albuterol sulfate 90 mcg/actuation HFA aerosol inhaler 1 puff inhalation Q4H PRN (Reason: wheezing or SOB) Qty: 6.7 2RF Rx Instructions: as best dispensed fluoxetine 20 mg tablet 40 mg PO DAILY MDD 40mg Qty: 180 3RF Rx Instructions: Continue with 40mg budesonide-formoterol [Symbicort] 160-4.5 mcg/actuation HFA aerosol inhaler 2 puff inhalation BID Qty: 10.2 12RF albuterol sulfate 1.25 mg/3 mL solution for nebulization 1.25 mg inhalation QID PRN (Reason: shortness of breath or wheezing) Qty: 300 12RF memantine 10 mg tablet 10 mg PO BID Qty: 180 3RF fluticasone propionate 50 mcg/actuation spray,suspension 1 spray intranasal BID Rx Instructions: administer into each nostril loperamide [Imodium A-D] 2 mg capsule 2 mg PO DAILY PRN aspirin 81 mg tablet,delayed release (DR/EC) See Rx Instructions .ROUTE .COMPLEX Qty: 90 1RF Dose Instruction: TAKE 1 TABLET BY MOUTH ONCE DAILY Rx Instructions: TAKE 1 TABLET BY MOUTH ONCE DAILY thiamine HCl (vitamin B1) 100 mg tablet 100 mg PO DAILY Qty: 30 3RF buspirone 5 mg tablet See Rx Instructions .ROUTE .COMPLEX Qty: 60 3RF Dose Instruction: TAKE 1 TABLET BY MOUTH TWICE DAILY Rx Instructions: TAKE 1 TABLET BY MOUTH TWICE DAILY pyridostigmine bromide 60 mg tablet 60 mg PO TID Qty: 6 0RF Rx Instructions: Bridge Rx nortriptyline 25 mg capsule 75 mg PO DAILY Qty: 90 3RF Rx Instructions: per previous pcp cetirizine [Zyrtec] 10 mg Tablet 10 mg PO HS PRN cholecalciferol (vitamin D3) [Vitamin D3] 25 mcg (1,000 unit) Capsule 25 mcg PO DAILY Probiotic 10 billion cell Capsule 10 cell PO DAILY Centrniki Minis Men 50 Plus [id number] mcg Tablet 1 tab PO DAILY omeprazole 20 mg Capsule,Delayed Release(Dr/Ec) 20 mg PO HS Discharge Instructions Additional Instructions: Surgery: Right shoulder arthroscopy with revision rotator cuff repair (supraspinatus), extensive debridement (including synovial biopsy), and subacromial decompression. Activity: For 6 weeks, you should keep your arm at your side in a neutral position at all times except for physical therapy. Do not try to lift or raise your arm using your own muscles. You should use the sling whenever you are out of the house. At home it is best to remove the sling and rest the arm on a pillow at your side or support the operative side with your other hand. You may allow the arm to dangle at your side. A physical therapy prescription will be sent electronically to begin in about 3 weeks. CONSERVATIVE protocol. Prescriptions: Resume home aspirin tomorrow Naproxen 250 mg take 1-2 every 12 hours with a meal as needed for moderate pain Oxycodone 5 mg take 1-2 every 4-6 hours as needed for severe pain You may use [id number] Tylenol (acetaminophen) as needed for mild pain. These pain medications may be taken all at once or in different combinations as needed. Also, recommend Colace (docusate) as a stool softener as surgery and pain medicine cause constipation. You may try [id number] diphenhydramine (Benadryl) 25-50 mg nightly as a sleep aid Dressings: Remove shoulder bandage after 3 days. Leave the sticky Steri-Strips in place until they fall off or remove them after you shower. Cover the incisions with Band-Aids or leave them open to air. You may shower after 5 days. Follow-up: 10-[address] Wilson You may take off the leg compression stockings this evening at home. You may also leave them on a few days longer if you have a history of leg swelling or edema. Let us know right away if you develop any redness, drainage, fevers, chest pain, or trouble breathing. Do not drink alcohol or drive for at least 24 hours after anesthesia. Please call the office during business hours with any questions or concerns. Stand Alone Forms: Anesthesia Discharge Inst., Barbi.Nerve Block Instructions, Lincoln Shah ([facility]) Referrals: Cristopher Wilson MD [ [facility] STAFF PHYSICIAN] - 08/02/23 9:30 am Discharge Orders Discharge Orders: Discharge Order (Routine); Ordered 07/21/23 Ordered By: Cristopher Wilson DS: Diagnosis Discharge Diagnosis (1) Rotator cuff tear, right: Status: Acute
--- NOTE | 2023-07-21 07:23 | ROE_ITS ---
Date of service: 07/21/23 Time of Service: 11:00 Operative Note Operative Note DATE OF PROCEDURE: 07/21/23 PRE-OP DIAGNOSIS: Right: 1. Recurrent rotator cuff tear 2. Bursitis POST-OP DIAGNOSIS: same PROCEDURE: Right: 1. Revision otator cuff repair, CPT# 52950. This involved revision repair of the supraspinatus using anchors and sutures to reattach the rotator cuff back to the footprint of the greater tuberosity. 2. Extensive debridement, CPT# 68341. This involved using arthroscopic hand instruments, power instruments, and radiofrequency instruments to obtain synovial biopsy and soft tissue samples to rule out indolent infection, remove prior permanent suture material at the failed rotator cuff repair site, perform an anterior capsular release [facility] L freeing up the subscapularis, and debriding mild anterior posterior labral tearing. 3. Revision subacromial decompression with partial acromioplasty, CPT# 54278. This involved using arthroscopic power instruments and a radiofrequency wand to complete a revision bursectomy and debride the undersurface of the acromion to release growth healing factors. The assistant fitness manager was medically required in order to help assist in techniques above, which require positioning the arm, holding the arthroscope, and manipulating multiple instruments and sutures at the same time. This cannot be done without the help of an experienced assistant fitness manager. SURGEON: Cristopher Wilson FACULTY DEAN: Marcelo Laureano ANESTHESIA TYPE: Local By Surgeon, General LMA/ETT and Primary Nerve Block Refer to Anesthesia Record ESTIMATED BLOOD LOSS: 5 PATHOLOGY: none sent COMPLICATIONS: None Patient was transported to: PACU Patient's condition: stable Implants: Arthrex: 4.75mm SwiveLocks x 3, and 5.5mm x 1 Indications: The patient was diagnosed with the above conditions and appropriately indicated for surgical intervention. Please see complete medical record for details. Findings: Exam under anesthesia: Mildly restricted external rotation, no instability Glenohumeral joint: Moderate rotator interval [facility] L subscapularis scarring adhesions, stable previously debrided SLAP tear, mild recurrent anterior posterior labral fraying, intact subscapularis, obvious full-thickness supraspinatus rotator cuff tear Subacromial space: Recurrent supraspinatus rotator cuff tear, now U-shaped with more posterior extension. Delaminated layers and degenerative thickening centrally. Intact infraspinatus. Loose sutures failed at the tendon interface, but well attached still to the suture anchor, which was fully healed and incorporated into bone without any loosening or cyst formation. Prior biceps tendon suture well-healed at entrance to bicipital groove. Procedure Description: In the operating room, general anesthesia was induced. Bilateral shoulders were examined. The patient was positioned in the beachchair position. All bony prominences were well-padded. Preoperative antibiotics were held for cultures. The shoulder was prepped and draped in the usual sterile fashion. The correct patient, procedure, and side of the procedure were all verified prior to incision. Starting through the previous posterior portal a complete diagnostic arthroscopy was performed. There was no overt sign of infection. Synovial samples were obtained using a pituitary rongeur including soft tissue and prior suture material and placed into specimen cups. Antibiotics were administered. Revision extensive debridement was done with significant findings and interventions noted above. Cannulas were inserted at the previous superior anterolateral, posterior superolateral, and lateral portals. Revision subacromial decompression was done resecting bursitis and lastly at the end of the case abrading the undersurface the acromion to release growth factors for healing. Supraspinatus tear was thoroughly inspected, mildly debrided of thickening and fraying, the footprint was prepared again to optimize bone tendon healing, there were no issues cyst or problems with the prior suture anchor, the tear is slightly greater extension posteriorly, was delaminated centrally and largely in a U-shaped configuration. Given the prior repair failure, decision was made to proceed with more fixation points and suture. 2 Medial Row 4.75 mm SwiveLock anchors were placed, suture tape shuttled individually through the different layers of the rotator cuff at the appropriate positions, a tape from each anchor was brought out laterally, and additional suture tape FiberLink was placed centrally incorporating the different layers of the cuff together and secured to an anterior lateral row 5.5 mm anchor chosen given proximity to the prior suture anchor. The remaining tapes were brought out laterally and additional FiberLink placed and secured to a posterior lateral 4.7 mm anchor. There was good tissue reduction and compression anterior and posteriorly with modest tissue loss centrally but good solid repair throughout testing and range of motion. The shoulder was drained of arthroscopic fluid. All portal sites were copiously irrigated. These incisions were closed using 3-0 Monocryl in a buried fashion and then covered with Mastisol, Steri-Strips, Xeroform, dry gauze, and ABDs. The dressings were covered and secured with Medipore tape. The operative extremity was placed into a sling for immobilization. The patient awoke from anesthesia without complication and was transferred to the recovery room in a stable condition.
[2023-07-21] MEDS: Lactated Ringers 1,000 ML 30 ML IV (10:15)
--- NOTE | 2023-07-21 11:31 | ANES.PREOP_ITS ---
General Info Date of Service Date Performed: 07/21/23 Height: 6 ft Weight: 90.4 kg Body Mass Index (BMI): 27.0 Surgical Procedure: Operation Date: 07/21/23 11:10 Proposed Procedure Side Surgeon p Shoulder Rotator Cuff Arthroscopic w/Revision Extensive Debridement, Subacromial Decompression Right Cristopher Wilson MD Actual Procedure Side Surgeon p Shoulder Rotator Cuff Arthroscopic w/Revision Extensive Debridement, Subacromial Decompression Right Cristopher Wilson MD Meds Allergies and Home Medications Allergies Allergy/AdvReac Type Severity Reaction Status Date / Time diphenhydramine AdvReac Intermediate Myasthenia Unverified 07/21/23 09:21 [From Benadryl] Gravis Crisis Aminoglycosides AdvReac Unknown Myasthenia Unverified 07/21/23 09:21 Gravis Flare Macrolide Antibiotics AdvReac Unknown Other (See Unverified 07/21/23 09:21 Comment) magnesium AdvReac Unknown upset Uncoded 07/21/23 09:21 stomach Home Medication Medication Instructions Recorded Lactobacillus acidophilus 10 10 cell PO DAILY 04/16/22 billion cell capsule (Probiotic) cetirizine 10 mg tablet (Zyrtec) 10 mg PO HS PRN 04/16/22 cholecalciferol (vitamin D3) 25 25 mcg PO DAILY 04/16/22 mcg (1,000 unit) capsule (Vitamin D3) [id number]-[id number] 150 mcg-vit K1 1 tab PO DAILY 04/16/22 30 mcg-lycop 300 mcg-lutein tablet (Centrum Minis Men 50 Plus) omeprazole 20 mg capsule,delayed 20 mg PO HS 04/16/22 release fluticasone propionate 50 1 spray intranasal BID 05/10/22 mcg/actuation nasal spray,suspension loperamide 2 mg capsule (Imodium 2 mg PO DAILY PRN 05/10/22 A-D) cyclobenzaprine 10 mg tablet 10 mg PO HS PRN 06/09/22 donepezil 10 mg tablet 10 mg PO QHS #90 tabs 09/30/22 albuterol sulfate 1.25 mg/3 mL 1.25 mg (3 mL) inhalation QID PRN 12/06/22 solution for nebulization shortness of breath or wheezing #300 mL aspirin 81 mg tablet,delayed See Rx Instructions .Route 02/14/23 release .COMPLEX #90 tabs thiamine HCl (vitamin B1) 100 mg 100 mg PO DAILY #30 tabs 02/14/23 tablet buspirone 5 mg tablet See Rx Instructions .Route 04/16/23 .COMPLEX #60 tabs pyridostigmine bromide 60 mg tablet 60 mg PO TID #6 tabs 05/27/23 memantine 10 mg tablet 10 mg PO BID #180 tabs 05/30/23 albuterol sulfate 90 mcg/actuation 1 puff inhalation Q4H PRN wheezing 06/03/23 aerosol inhaler or SOB #6.7 grams fluoxetine 20 mg tablet 40 mg (2 x 20 mg) PO DAILY #180 06/03/23 tabs budesonide-formoterol HFA 160 2 puff inhalation BID #10.2 grams 06/08/23 mcg-4.5 mcg/actuation aerosol inhaler (Symbicort) nortriptyline 25 mg capsule 75 mg (3 x 25 mg) PO DAILY #90 caps 06/17/23 naproxen 250 mg tablet 250 - 500 mg (1 - 2 x 250 mg) PO 07/21/23 BID PRN #40 tabs oxycodone 5 mg tablet 5 - 10 mg (1 - 2 x 5 mg) PO Q4H 07/21/23 PRN moderate to severe pain #7 tabs Current Visit Medications: Current Medications Generic Name Dose Route Start Last Admin Trade Name Allison PRN Reason Stop Dose Admin Acetaminophen 1,000 mg 07/21/23 07:20 Acetaminophen 500 Mg Tab PO 08/20/23 07:19 Q6H PRN PRN Ringer's Solution 1,000 mls @ 30 mls/hr 07/21/23 06:00 07/21/23 10:15 IV 07/21/23 23:59 30 mls/hr INFUSION KEIRA Administration Cefazolin Sodium/Dextrose 2 gm in 50 mls @ 100 mls/hr 07/21/23 06:00 Ancef Duplex IVPB 07/21/23 23:59 PREOP KEIRA Tranexamic Acid/Sodium Chloride 1,000 mg in 100 mls @ 600 mls/hr 07/21/23 06:00 IVPB 07/21/23 23:59 PREOP KEIRA IV Miscellaneous Supplies 1 each 07/21/23 06:00 Iv Access IV 07/21/23 23:59 DIRECTED KEIRA Naproxen 250 - 500 mg 07/21/23 07:20 Naproxen 500 Mg Tab PO 08/20/23 07:19 BID PRN PRN Oxycodone HCl 0 mg 07/21/23 07:20 Oxycodone 5 Mg Tab PO 08/20/23 07:19 Q3H PRN PRN Pain Sodium Chloride 0 ml 07/21/23 06:00 Normal Saline Flush 10 Ml Syr IV 07/21/23 23:59 PRN PRN Sodium Chloride 0 ml 07/21/23 06:00 Normal Saline 10 Ml Vial IJ 07/21/23 23:59 DIRECTED PRN Sterile Water 0 ml 07/21/23 06:00 Water,Injection,Sterile 10 Ml Vial IJ 07/21/23 23:59 DIRECTED PRN PFSH Active Problems Active Problems: Problem Status Onset Code Rotator cuff tear, right M75.101 Bursitis of hip M70.70 Asthma J45.909 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 Anxiety F41.9 Hyperlipidemia E78.5 GERD (gastroesophageal reflux disease) K21.9 Benign prostatic hyperplasia N40.0 Chronic cough R05.3 Raynauds disease I73.00 Hypertension I10 Multiple nodules of lung R91.8 Memory loss R41.3 Myasthenia gravis G70.00 Ptosis of right eyelid H02.401 Ocular myasthenia gravis G70.00 Daily consumption of alcohol Z78.9 High risk medication use Z79.899 Dehydration E86.0 Onychomycosis B35.1 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 Mat & Paternal sides (unclear if ketoacidosis) Family history of breast cancer Mo/Maternal? Skin lesion of back nothing found per pt/; (per chart review, Surg, 10/2019) Tendonitis of long head of biceps brachii of right shoulder Diffuse spasm of esophagus Onychogryphosis Dx = nail plate growth disorder (opaque, yellow, thickening nail, with hyper keratosis/elongation/curv.) Alcohol dependence Lateral epicondylitis of right elbow Fibromyositis Dx = localized inflamm of mm & conn tissue (pn/sw/redness/heat) Seborrheic keratosis Hx skin Bx? IBS (irritable bowel syndrome) Diet ctlld (immed diarrhea w/ Magn)(kaylin sauce)(high fiber foods) .. Vit D & Probiotic seems to help. Lyme disease (12/16/20) Doxy x 1 week <-- x2 ?? Fibromyalgia Medical History Comments:: PND, intermittent cough Surgical History Surgical History H/O repair of rotator cuff (~06/10/22) Rupture of right supraspinatus tendon Right shoulder arthroscopy with rotator cuff repair (supraspinatus), biceps tenodesis, extensive debridement, and subacromial decompression 06/10/22 S/P right knee arthroscopy History of tonsillectomy (~1959) History of appendectomy (~1959) Tobacco Smoking/Tobacco Use Status: Former Tobacco Use Passive smoking exposure: No Alcohol Alcohol Intake: current Alcohol intake frequency: 0-2 drinks per day Alcohol type: beer and other Substance Use Substance use: Never Substance use type: does not use Counseling provided: none Vital Signs and Lab Results Vital Signs Most Recent Vital Signs in EMR: Most Recent Vital Signs Temp Pulse Resp BP Pulse Ox 36.5 C 77 16 146/100 H 95 07/21/23 11:25 07/21/23 11:25 07/21/23 11:25 07/21/23 11:25 07/21/23 11:25 Lab Results Blood Type / Crossmatch: No Data to Display Complete Blood Count: No Data to Display Complete Metabolic Panel: No Data to Display Liver Function Panel: No Data to Display Coagulation Panel: No Data to Display Cardiac Panel: No Data to Display Arterial Blood Gas: No Data to Display Venous Blood Gas: No Data to Display Pancreas Panel: No Data to Display Thyroid Panel: No Data to Display Infectious Disease: No Data to Display Blood Cultures: No Data to Display Toxicology Panel: No Data to Display Imaging and Studies Imaging and Studies Study information below may be from another EMR and interpreted by another provider. Please see original notes in EMR for more complete details. EKG Summary: EKG PATIENT NAME: Chelsey Lynch #: [id number] ORDERING PROVIDER: Lj Ulrich M.D. PRIMARY CARE PROVIDER:JACQUE LASSITER DO DATE/TIME OF SERVICE: 04/16/22 1203 : 1955PERFORMING LOCATION: ER APPROVED REPORT Exam: Resting ECG Reason for Exam: Dizziness Patient Location: E HR:81 bpm ECG Measurements Heart Rate 81 AXIS KS 150 P 49 QRSd 94 QRS 26 QT 361 T50 QTc 420 Conclusion Sinus rhythm...normal P axis, V-rate 60- 99 Normal Blakeslee I have reviewed and interpreted ECG and agree with software generated interpretation. Normal Electrocardiogram Echocardiogram Summary: Patient Name: Chelsey Lynch #: [id number]: MS Ordering Provider: Radha Rodriguez NPAccount #: [id number]: ADM IN Primary Care Provider: Jacque Lassiter DODate of Exam: 04/16/22Sex: M Admission Date: 04/16/22 : 1955 Age: 66 APPROVED REPORT EXAM: Comprehensive 2D, Doppler, and color-flow Echocardiogram Patient Location: In-Patient Room/Bed: [facility] Compliance Analyst: Noemy Hanson RDCS (AE) Indications: CVA Echo Enhancing Agent Indication: Rule out Shunt Agent(s) / Amount(s) Used: Agitated Saline 30.0 cc Comments: Contrast study was performed with 3 IV injections of 10ccs of agitated normal saline, at rest, with cough and post valsalva maneuver. Negative contrast study for shunt flow. Other Information Study Quality: Adequate Conclusion Normal left ventricular wall thickness and chamber size. Estimated ejection fraction is 60%. Wall motion is normal Normal right ventricular size and systolic function Both atria are normal in size No intracardiac shunt is identified with injection of agitated saline There are no structural valvular abnormalities There is mild mitral regurgitation Estimated right ventricular systolic pressure is 19 mmHg Anesthesia Assessment and Plan Anesthesia History Personal History: No History of Anesthesia Complications Family History: No Family History of Anesthesia Complications Exercise Tolerance Exercise Tolerance: Metabolic Equivalents>4 Pertinent Negatives Pertinent Negatives: No Symptoms of GERD Cardiac & Pulmonary Exam Cardiac Exam: Normal S1/S2 Heart Sounds Pulmonary Exam: Clear Bilateral Breath Sounds Implantable Cardiac Device Does patient have a Pacemaker or an ICD?: No Airway Exam Known Difficult Airway: No Mallampati Class: 3 Mouth Opening: Narrow (< 3cm) Thyromental Distance: Greater than 3 cm Neck Range of Motion: Limited ROM (slight, patient denies) Neck Circumference: Normal Teeth Condition: Generalized Poor Dentition ASA Classification ASA Score: ASA 3 Emergency Case?: No NPO Status NPO Status: NPO Clears >2 hours, Solids >8 hours Anesthesia Plan Resuscitation Status: Full Code Anesthesia Technique: General Anesthesia Airway Planned: Endotracheal Tube Pain Management: Surgeon and patient request nerve block Monitors Used: Standard Monitors Preoperative Comments:: Discussed significant concerns related to Myasthenia Gravis, reactive airway disease, and other comorbidities. Discussed with partner, Larisa, at bedside. Plan, risks, benefits, and possibility of alternatives discussed. All questions answered and patient wishes to proceed with GETA and right sided brachial plexus block (interscalene).
--- NOTE | 2023-07-21 11:34 | W.ANESNERVE ---
Nerve Block Single Injection Procedure Date and Time Date Performed: 07/21/23 Procedure Start: 11:15 Location Where Procedure Performed Procedure Location: Day Surgery Unit Reason Performed: Postoperative Analgesia Requesting Provider: Cristopher Wilson Timeout Performed Timeout Performed: Yes Monitoring Used ECG, Blood Pressure and SpO2 Sterility Sterility: Hand Hygiene, Surgical Cap, Surgical Mask, Sterile Gloves and Chlorhexidine Sedation Given During Procedure Sedation Given (Indicate Dose Given): Versed IV Dose:: 2 mg Patient Mental Status Patient Mental Status: Sedate with meaningful communication Nerve Block 1st Nerve Block: Laterality: Right Block Type: Interscalene Ultrasound Image Saved?: Yes Needle / Catheter Used: 100mm SonoPlex II Local Anesthetic Bolus (Indicate Dose Given): Lidocaine used for local infiltration of skin, Injected in 3-5ml increments after negative blood aspiration, Bupivacaine 0.5% Dose:: 10 ml and Exparel Dose:: 10 ml Additives (Indicate Dose Given): Normal Saline (hydrodissection) Ultrasound: Sterile probe cover and gel used Nerve Stimulator: Supplement to Ultrasound use and No twitch or parasthesia noted < 0.5 mA Paresthesia: None Procedure Tolerated: No Complications and Patient tolerated well Procedure Outcome: Successful Performed By: Kimo Montanez
[2023-07-21] MEDS: TRANEXAMIC ACID/SOD. CHL. 1,000 MG/100 ML BAG 600 MG IVPB (12:00)
[2023-07-21] MEDS: EPINEPHrine 10 MG/10 ML ML (12:22)
[2023-07-21] MEDS: Bupivacaine 0.25% Pres-Free W/EPI 30 ML VIAL (12:30)
--- NOTE | 2023-07-21 14:33 | W.ANESPOSTOP ---
Postoperative Evaluation Date, Time and Location Date Performed: 07/21/23 Time Performed: 14:25 Patient Location: PACU Vital Signs Most Recent Imported Vital Signs: Most Recent Vital Signs Temp Pulse Resp BP Pulse Ox 36.8 C 67 16 104/65 94 07/21/23 14:25 07/21/23 14:25 07/21/23 14:25 07/21/23 14:07/21/23 14:25 Pain Score Most Recent Pain Score: Most Recent Pain Score Pain Level 0 07/21/23 14:25 Assessment Mental Status: Arousable with meaningful communication Airway and Respiratory Function: Patent airway with normal (patient baseline) respiratory exam Cardiovascular Function: Hemodynamically Stable Hydration Status: Adequately Hydrated Nausea & Vomiting: No Nausea or Vomiting Pain: Pt. Denies Any Pain Peripheral Nerve Block: Regional nerve block not resolved at time of post operative discharge
== END 2023-07-21 16:45 | disposition home or self-care (01) ==
LOC: SUR 09:01
PROVIDERS: PCP Student in an Organized Health Care Education/Training Program; Visit Provider Student in an Organized Health Care Education/Training Program
PROC: (CPT 29827; principal; 2023-07-21 11:00)
DX: M75.101 Unspecified rotator cuff tear or rupture of right shoulder, not specified as traumatic (principal); I10 Essential (primary) hypertension; G70.00 Myasthenia gravis without (acute) exacerbation; J45.998 Other asthma
CPT/HCPCS: 29827; 29823; 29826; 76942; 87070; 87075; 87205; C9290; J0665; J1100; J2250; J2371; J2405; J2704

== ENCOUNTER → 2023-08-17 08:00 | Outpatient (BNVA) | payer MEDICARE, OTHER, SELFPAY | PROVIDERS: PCP Student in an Organized Health Care Education/Training Program; Referring Provider Student in an Organized Health Care Education/Training Program; Visit Provider Podiatrist | DX: I73.00 Raynaud's syndrome without gangrene (principal); I10 Essential (primary) hypertension; G70.00 Myasthenia gravis without (acute) exacerbation; B35.1 Tinea unguium; L60.3 Nail dystrophy | CPT/HCPCS: 99213 ==

== ENCOUNTER → 2023-10-11 11:07 | Outpatient (BNVA) | payer MEDICARE, OTHER, SELFPAY | PROVIDERS: PCP Student in an Organized Health Care Education/Training Program; Referring Provider Student in an Organized Health Care Education/Training Program; Visit Provider Psychiatry & Neurology Neurology | DX: K21.9 Gastro-esophageal reflux disease without esophagitis (principal); F10.10 Alcohol abuse, uncomplicated; H53.2 Diplopia; R41.3 Other amnesia | CPT/HCPCS: 99214 ==

== ENCOUNTER 2024-01-06 12:13 | Emergency (ER) | payer MEDICARE, OTHER, SELFPAY ==
[2024-01-06] VITALS (13 sets, daily range): BP systolic 119–141; BP diastolic 75–92; PULSE 70–85; RESP 12–22; TEMP 36.9–37.4; O2SAT 98–100
--- NOTE | 2024-01-06 12:00 | RT.EKG_ITS ---
APPROVED REPORT Exam: Resting ECG Reason for Exam: Hayden pain Patient Location: E HR:71 bpm ECG Measurements Heart Rate 71 AXIS TX 156 P 59 QRSd 88 QRS 48 QT 374 T 65 QTc 406 Conclusion Sinus rhythm 71 normal axis no stemi
--- NOTE | 2024-01-06 12:32 | ED.GENADUL_ITS ---
Discharge Plan Disposition Patient Disposition: Home Condition: Stable Discharge Details Clinical Impression: Vasovagal syncope Primary Care Provider: Jacque Lassiter ED Provider: Bill Villa Home Meds and New Rx's Prescriptions: Continued cyclobenzaprine 10 mg tablet 10 mg PO HS PRN ketoconazole 2 % cream 1 applic topical DAILY Qty: 120 6RF Rx Instructions: Apply to toenails once daily fluoxetine 20 mg tablet 40 mg PO DAILY MDD 40mg Qty: 180 3RF Rx Instructions: Continue with 40mg fluticasone propionate 50 mcg/actuation spray,suspension 1 spray intranasal BID Qty: 16 2RF Rx Instructions: administer into each nostril omeprazole 20 mg capsule,delayed release(DR/EC) 20 mg PO HS Qty: 90 3RF budesonide-formoterol [Symbicort] 160-4.5 mcg/actuation HFA aerosol inhaler 2 puff inhalation BID Qty: 10.2 12RF albuterol sulfate 1.25 mg/3 mL solution for nebulization 1.25 mg inhalation QID PRN (Reason: shortness of breath or wheezing) Qty: 300 12RF memantine 10 mg tablet 10 mg PO BID Qty: 180 3RF loperamide [Imodium A-D] 2 mg capsule 2 mg PO DAILY PRN thiamine HCl (vitamin B1) 100 mg tablet 100 mg PO DAILY Qty: 30 3RF pyridostigmine bromide 60 mg tablet 60 mg PO TID Qty: 6 0RF Rx Instructions: [facility] aspirin 81 mg tablet,delayed release (DR/EC) See Rx Instructions .ROUTE .COMPLEX Qty: 90 1RF Dose Instruction: TAKE 1 TABLET BY MOUTH ONCE DAILY Rx Instructions: TAKE 1 TABLET BY MOUTH ONCE DAILY donepezil 10 mg tablet 10 mg PO QHS Qty: 90 3RF nortriptyline 25 mg capsule 75 mg PO DAILY Qty: 90 3RF Rx Instructions: per previous pcp buspirone 5 mg tablet See Rx Instructions .ROUTE .COMPLEX Qty: 60 3RF Dose Instruction: TAKE ONE TABLET BY MOUTH TWICE A DAY Rx Instructions: TAKE ONE TABLET BY MOUTH TWICE A DAY albuterol sulfate 90 mcg/actuation HFA aerosol inhaler See Rx Instructions .ROUTE .COMPLEX Qty: 8.5 2RF Dose Instruction: INHALE ONE PUFF BY MOUTH EVERY 4 HOURS NEEDED FOR WHEEZING OR FOR SHORTNESS OF BREATH Rx Instructions: INHALE ONE PUFF BY MOUTH EVERY 4 HOURS NEEDED FOR WHEEZING OR FOR SHORTNESS OF BREATH cetirizine [Zyrtec] 10 mg Tablet 10 mg PO HS PRN cholecalciferol (vitamin D3) [Vitamin D3] 25 mcg (1,000 unit) Capsule 25 mcg PO DAILY Probiotic 10 billion cell Capsule 10 cell PO DAILY Centrum Minis Men 50 Plus [phone] mcg Tablet 1 tab PO DAILY naproxen 250 mg tablet 250 - 500 mg PO BID PRNQty: 40 0RF Rx Instructions: take with a meal Discharge Instructions Instructions: Fainting, Adult ED Additional Instructions: You were seen in the emergency department for your syncopal episode after using the bathroom. It is possible that you had a vasovagal syncope episode, your cardiac markers are negative, CT of your head and neck shows no acute vascular abnormality and there are no other electrolyte abnormalities like severe dehydration or other emergent concerns on your laboratory workup. Your chest x- ray is normal, please follow-up with your primary care provider about possibly getting a heart monitor as well as baseline cardiology studies like an echocardiogram and possible stress test in the next 1 to 3 months. Please return to the emergency department for any emergent concerns, further episodes of syncope, chest pain, palpitations. Referrals: Jacque Lassiter DO [Primary Care Provider] - Discharge Data Discharge Date/Time-TO BE ENTERED AT DEPARTURE: 01/06/24 15:16 HPI General Date/Time Provider Initiated Documentation: 01/06/24 12:31 . HPI Narrative: 68 year-old male presents to ED today by POV/ambulating with his , sent over from , with a chief complaint of syncopal episode at [facility] after toileting, dizziness- unsure how long he was down with onset earlier this afternoon. Quality described as no current dizziness or chest pain, states his neck feels tight in the lateral muscles equates it to his longstanding fibromyalgia, no radiation to current headache, visual changes, palpitations, chest pain, shortness of breath, fever, nausea or vomiting, numbness, tingling or weakness. Severity is described as unable to quantify. Palliating factors include nothing specific. Provoking factors include nothing specific. Events leading up to the incident/Associated Symptoms: patient denies any known cardiac history, provider did not that he had difficulty with [id number] Patient not anticoagulated. Related Data Home Medications ?Medication ?Instructions ?Recorded ?Confirmed Lactobacillus acidophilus 10 10 cell PO DAILY 04/16/22 01/06/24 billion cell capsule (Probiotic) cetirizine 10 mg tablet (Zyrtec) 10 mg PO HS PRN 04/16/22 01/06/24 cholecalciferol (vitamin D3) 25 25 mcg PO DAILY 04/16/22 01/06/24 mcg (1,000 unit) capsule (Vitamin D3) [id number] 150 mcg-vit K1 1 tab PO DAILY 04/16/22 01/06/24 30 mcg-lycop 300 mcg-lutein tablet (Centrum Minis Men 50 Plus) loperamide 2 mg capsule (Imodium 2 mg PO DAILY PRN 05/10/22 01/06/24 A-D) cyclobenzaprine 10 mg tablet 10 mg PO HS PRN 06/09/22 01/06/24 albuterol sulfate 1.25 mg/3 mL 1.25 mg (3 mL) inhalation QID PRN 12/06/22 01/06/24 solution for nebulization shortness of breath or wheezing #300 mL thiamine HCl (vitamin B1) 100 mg 100 mg PO DAILY #30 tabs 02/14/23 01/06/24 tablet pyridostigmine bromide 60 mg tablet 60 mg PO TID #6 tabs 05/27/23 01/06/24 memantine 10 mg tablet 10 mg PO BID #180 tabs 05/30/23 01/06/24 fluoxetine 20 mg tablet 40 mg (2 x 20 mg) PO DAILY #180 06/03/23 01/06/24 tabs budesonide-formoterol HFA 160 2 puff inhalation BID #10.2 grams 06/08/23 01/06/24 mcg-4.5 mcg/actuation aerosol inhaler (Symbicort) naproxen 250 mg tablet 250 - 500 mg (1 - 2 x 250 mg) PO 07/21/23 01/06/24 BID PRN #40 tabs aspirin 81 mg tablet,delayed See Rx Instructions .Route 08/10/23 01/06/24 release .COMPLEX #90 tabs ketoconazole 2 % topical cream 1 applic topical DAILY #120 grams 08/17/23 01/06/24 donepezil 10 mg tablet 10 mg PO QHS #90 tabs 09/05/23 01/06/24 nortriptyline 25 mg capsule 75 mg (3 x 25 mg) PO DAILY #90 caps 10/16/23 01/06/24 fluticasone propionate 50 1 spray intranasal BID #16 grams 10/24/23 01/06/24 mcg/actuation nasal spray,suspension omeprazole 20 mg capsule,delayed 20 mg PO HS #90 caps 10/24/23 01/06/24 release albuterol sulfate 90 mcg/actuation See Rx Instructions .Route 11/29/23 01/06/24 aerosol inhaler .COMPLEX #8.5 grams buspirone 5 mg tablet See Rx Instructions .Route 11/29/23 01/06/24 .COMPLEX #60 tabs Previous Rx's ?Medication ?Instructions ?Recorded albuterol sulfate 1.25 mg/3 mL 1.25 mg (3 mL) inhalation QID PRN 12/06/22 solution for nebulization shortness of breath or wheezing #300 mL thiamine HCl (vitamin B1) 100 mg 100 mg PO DAILY #30 tabs 02/14/23 tablet pyridostigmine bromide 60 mg tablet 60 mg PO TID #6 tabs 05/27/23 memantine 10 mg tablet 10 mg PO BID #180 tabs 05/30/23 fluoxetine 20 mg tablet 40 mg (2 x 20 mg) PO DAILY #180 06/03/23 tabs budesonide-formoterol HFA 160 2 puff inhalation BID #10.2 grams 06/08/23 mcg-4.5 mcg/actuation aerosol inhaler (Symbicort) naproxen 250 mg tablet 250 - 500 mg (1 - 2 x 250 mg) PO 07/21/23 BID PRN #40 tabs aspirin 81 mg tablet,delayed See Rx Instructions .Route 08/10/23 release .COMPLEX #90 tabs ketoconazole 2 % topical cream 1 applic topical DAILY #120 grams 08/17/23 donepezil 10 mg tablet 10 mg PO QHS #90 tabs 09/05/23 nortriptyline 25 mg capsule 75 mg (3 x 25 mg) PO DAILY #90 caps 10/16/23 fluticasone propionate 50 1 spray intranasal BID #16 grams 10/24/23 mcg/actuation nasal spray,suspension omeprazole 20 mg capsule,delayed 20 mg PO HS #90 caps 10/24/23 release albuterol sulfate 90 mcg/actuation See Rx Instructions .Route 11/29/23 aerosol inhaler .COMPLEX #8.5 grams buspirone 5 mg tablet See Rx Instructions .Route 11/29/23 .COMPLEX #60 tabs Allergies Allergy/AdvReac Type Severity Reaction Status Date / Time diphenhydramine (From AdvReac Intermediate Myasthenia Unverified 01/06/24 12:19 Benadryl) Gravis Crisis Aminoglycosides AdvReac Unknown Myasthenia Unverified 01/06/24 12:19 Gravis Flare Macrolide Antibiotics AdvReac Unknown Other (See Unverified 01/06/24 12:19 Comment) magnesium AdvReac Unknown upset Uncoded 01/06/24 12:19 stomach General Stated Complaint: [id number] KAYLYN: 3 Review of Systems All systems reviewed & are unremarkable except as noted in HPI and below Exam Narrative Exam Narrative: GENERAL APPEARANCE: Well-nourished, non-toxic, awake and alert, atraumatic, no acute distress. SKIN: Warm, pink, dry, intact, without rashes/lesions/ulcerations. HEAD: Normocephalic, atraumatic, normal hair distribution for gender/age. EYES: Normal conjunctiva, no exudates on lids/lashes. ENT: Nares patent, no circumoral cyanosis, no facial swelling NECK: Supple, trachea midline, painless cervical ROM. LUNGS/CHEST: Lungs CTA bilaterally-no rales/rhonchi/wheezes diffusely, non- labored respirations, normal A/P diameter, symmetrical expansion, no chest wall deformity HEART (CV/PV): Regular rate and rhythm without murmur, no peripheral edema, no JVD. ABDOMEN: Soft, non-distended, no guarding no tenderness. MSK: Normal ROM, no swelling/deformity to bilateral UEs or LEs, moving all extremities without weakness, no cyanosis, spine midline without tenderness, normal curvature. NEURO: Mental Status AAOx4 - alert to person, place, time, events No facial droop, no forehead involvement. Fails to return to his nose while testing dysmetria in the left upper extremity but is able to accurately pinpoint my finger Motor: No focal weakness - strength 5/5 in bilateral UEs and LEs, proximal and distal, symmetric. Sensory: sensation intact to light touch globally. Gait normal: patient ambulated without ataxia into ED room. PSYCH: euthymic, cooperative, pleasant, appropriate speech Course Vital Signs Vital signs: Vital Signs Temperature 36.9 C 01/06/24 12:15 Pulse 78 01/06/24 12:15 Respiratory Rate 16 01/06/24 12:15 Blood Pressure 128/83 01/06/24 12:15 Pulse Oximetry 98 01/06/24 12:15 Temperature 36.9 C 01/06/24 12:15 Temperature Source Temporal Artery Scan 01/06/24 12:15 Pulse 78 01/06/24 12:15 Respiratory Rate 16 01/06/24 12:15 Respiratory Effort Normal, Non-Labored 01/06/24 12:19 Blood Pressure 128/83 01/06/24 12:15 Blood Pressure Position Sitting 01/06/24 12:15 Pulse Oximetry 98 01/06/24 12:15 Oxygen Delivery Method Room Air 01/06/24 12:15 Oxygen Flow Rate 0 01/06/24 12:15 Pain Level 0 01/06/24 12:15 Medical Decision Making This dictation utilizes [id number] dictation software and may contain unedited grammatical errors. 68 year-old male presents to ED today by POV/ambulating with his , sent over from , with a chief complaint of syncopal episode at [facility] after toileting, dizziness- unsure how long he was down with onset earlier this afternoon. Quality described as no current dizziness or chest pain, states his neck feels tight in the lateral muscles equates it to his longstanding fibromyalgia, no radiation to current headache, visual changes, palpitations, chest pain, shortness of breath, fever, nausea or vomiting, numbness, tingling or weakness. Severity is described as unable to quantify. Palliating factors include nothing specific. Provoking factors include nothing specific. Events leading up to the incident/Associated Symptoms: patient denies any known cardiac history, provider did not that he had difficulty with [id number]. Patients' medical history: Alcohol dependence, fibromyositis, fibromyalgia, IBS, asthma, anxiety, hypertension, memory loss, myasthenia gravis. Family and social history: Noncontributory. Pertinent exam findings / vital signs include mild dysmetria or neglect with [id number] with the left upper extremity, patient fails to return to his nose but is able to accurately locate my finger, no carotid bruit, neuro intact immediately with, benign cardiopulmonary status, benign abdomen. Differential / pathologies of concern include syncope, ACS, vertebral dissection or other intracranial cause of dizziness or syncope, electrolyte abnormality, infection, vasovagal syncope. Diagnostic studies of: -CBC, CMP, serial troponins, magnesium, TSH, EKG, XR chest, CTA chest. -CBC benign -CMP shows no actionable abnormality -Serial troponins negative -TSH within normal limits -Magnesium within normal limits -XR chest unremarkable -CTA of the head and neck unremarkable -EKG without ischemic changes, without arrhythmia or ectopy Interventions of: -None. ED Course/Assessment/Plan: 68-year-old male had a syncopal episode after going to the bathroom while at the [employer], down for unknown time, denies chest pain at this time, is mentating at baseline, he does have some mild neglect with [id number] on the left upper extremity and I did perform CT of the head and neck which was benign, his serial troponins are negative his EKG is reassuring I believe he has vasovagal syncope possibly from stimulating the vagus nerve while going to the bathroom. I stressed strict return criteria for any worsening dizziness, further episodes of syncope or chest pain. Findings not consistent with vertebral dissection, CVA, ACS, arrhythmia. Disposition of vasovagal syncope. Patient verbalized understanding of the plan and return to ED criteria and engaged in shared decision making. Medical Records Medical records reviewed: Yes I reviewed the patient's medical records. Imaging Data Radiologic Study: Attestation: I personally reviewed and interpreted this imaging study as follows: Imaging: X-Ray Radiologist's impression: EXAM: XR CHEST 2V PA LATERAL CLINICAL HISTORY: syncope TECHNIQUE: 2D digital imaging was performed. Two views. COMPARISON: CT CT CHEST W from 04/19/2022 FINDINGS: Overlying monitoring leads. HEART: Normal size. Aorta: Not dilated. PULMONARY VASCULATURE: Normal. MEDIASTINUM: Unremarkable. LUNGS: Clear. PLEURAL SPACE: No pleural effusion or pneumothorax. BONE:Unremarkable for age. SOFT TISSUES: Unremarkable. IMPRESSION: No acute abnormality. Radiologic Study #2: Attestation: I personally reviewed and interpreted this imaging study as follows: Imaging: CT Scan Radiologist's impression: EXAM: CT BRAIN NECK CTA CLINICAL HISTORY: dizziness, syncope, dysmetria L UE. TECHNIQUE: Imaging Protocol: Axial CT angiography was performed with multi- slice acquisition and multi-planar and MIP reconstructions. CONTRAST MATERIAL: Intravenous: Omnipaque 350 Contrast volume:100 ml COMPARISON: CT CT HEAD - STROKE PROTOCOL from 04/16/2022 FINDINGS: CT Head W/O and W contrast: Ventricles and Extra axial spaces: Normal in size and morphology for the patient's age. Hemorrhage: None. Cerebral parenchyma: No evidence of acute infarct or mass. Midline shift: None. Brainstem/Cerebellum: No acute findings.. Calvarium: Normal. Visualized Paranasal sinuses/Mastoids: Clear. Soft Tissues: Unremarkable. Enhancement: Normal. CTA Brain W: Internal Carotid Arteries: Petrous: Normal. Cavernous: Normal. Cerebral: Normal. Middle Cerebral Arteries: Right: No aneurysm, occlusion or significant stenosis. Left: No aneurysm, occlusion or significant stenosis. Anterior Cerebral Arteries: Right: No aneurysm, occlusion or significant stenosis. Left: No aneurysm, occlusion or significant stenosis. Posterior cerebral Arteries: Right: No aneurysm, occlusion or significant stenosis. Left: No aneurysm, occlusion or significant stenosis. Vertebral Arteries: Right: No aneurysm, occlusion or significant stenosis. Left: No aneurysm, occlusion or significant stenosis. Basilar Artery: No aneurysm, occlusion or significant stenosis. CTA Neck W: Common Carotid: Right: Minimal calcific plaque at bulb. No dissection, occlusion or significant stenosis. Left: No dissection, occlusion or significant stenosis. External Carotid: Right: No dissection, occlusion or significant stenosis. Left: No dissection, occlusion or significant stenosis. Internal Carotid: Right: Mild plaque proximally. No dissection, occlusion or significant stenosis. Severe tortuosity midportion. Left: Small focus of calcific plaque proximally. No dissection, occlusion or significant stenosis. Severe tortuosity distally. Vertebral Artery: Right: No dissection, occlusion or significant stenosis. Left: No dissection, occlusion or significant stenosis. Lung Apices: No acute findings. Bones: No acute abnormality. Soft Tissues: Normal. IMPRESSION: 1. CTA brain: Normal CTA examination of the [place]. 2. Head CT: Unremarkable CT Head. 3. CTA neck: Mild plaque at the common carotid bulbs and proximal internal carotid arteries. No significant stenosis or dissection. Bilateral internal carotid arteries are tortuous. Lab Data Lab results reviewed: Yes I reviewed the patient's lab results. Labs: Laboratory Tests Range/Units 11/01/24 11/01/24 11/01/24 12:32 12:32 12:32 WBC (4.4-10.8) 10^3/uL 5.46 RBC (4.36-5.78) 10^6/uL 5.36 Hgb (13.5-17.5) g/dL 16.2 Hct (40.0-50.0) % 47.4 MCV (80-95) fL 88 MCH (27.0-33.0) pg 30.2 MCHC (32.0-36.0) % 34.2 RDW (11.8-14.1) % 11.9 Plt Count (130-400) 10^3/uL 221 MPV (8.0-11.0) fL 11.2 H Immature Gran % % 0.2 Neutrophils % % 65.2 Lymphocytes % % 19.8 Monocytes % % 10.8 Eosinophils % % 3.1 Basophils % % 0.9 Nucleated RBC % (0.0-0.3) % 0.0 Absolute Neutrophils (1.2-6.7) 10^3/uL 3.56 Absolute Lymphocytes (1.2-3.4) 10^3/uL 1.08 L Absolute Monocytes (0.1-0.8) 10^3/uL 0.59 Absolute Eosinophils (0.0-0.7) 10^3/uL 0.17 Absolute Basophils (0.0-0.2) 10^3/uL 0.05 Sodium Cancelled Cancelled Potassium Cancelled Cancelled Chloride Cancelled Carbon Dioxide Anion Gap BUN Creatinine Est GFR (CKD-EPI 2020) Glucose Calcium Magnesium Total Bilirubin AST ALT Alkaline Phosphatase Troponin I Total Protein Albumin TSH Range/Units 01/06/24 01/06/24 01/06/24 12:32 12:32 12:32 WBC (4.4-10.8) 10^3/uL RBC (4.36-5.78) 10^6/uL Hgb (13.5-17.5) g/dL Hct (40.0-50.0) % MCV (80-95) fL MCH (27.0-33.0) pg MCHC (32.0-36.0) % RDW (11.8-14.1) % Plt Count (130-400) 10^3/uL MPV (8.0-11.0) fL Immature Gran % % Neutrophils % % Lymphocytes % % Monocytes % % Eosinophils % % Basophils % % Nucleated RBC % (0.0-0.3) % Absolute Neutrophils (1.2-6.7) 10^3/uL Absolute Lymphocytes (1.2-3.4) 10^3/uL Absolute Monocytes (0.1-0.8) 10^3/uL Absolute Eosinophils (0.0-0.7) 10^3/uL Absolute Basophils (0.0-0.2) 10^3/uL Sodium Potassium Chloride Cancelled Carbon Dioxide Cancelled Cancelled Anion Gap Cancelled Cancelled BUN Cancelled Creatinine Est GFR (CKD-EPI 2020) Glucose Calcium Magnesium Total Bilirubin AST ALT Alkaline Phosphatase Troponin I Total Protein Albumin TSH Range/Units 01/06/24 01/06/24 01/06/24 12:32 12:32 12:32 WBC (4.4-10.8) 10^3/uL RBC (4.36-5.78) 10^6/uL Hgb (13.5-17.5) g/dL Hct (40.0-50.0) % MCV (80-95) fL MCH (27.0-33.0) pg MCHC (32.0-36.0) % RDW (11.8-14.1) % Plt Count (130-400) 10^3/uL MPV (8.0-11.0) fL Immature Gran % % Neutrophils % % Lymphocytes % % Monocytes % % Eosinophils % % Basophils % % Nucleated RBC % (0.0-0.3) % Absolute Neutrophils (1.2-6.7) 10^3/uL Absolute Lymphocytes (1.2-3.4) 10^3/uL Absolute Monocytes (0.1-0.8) 10^3/uL Absolute Eosinophils (0.0-0.7) 10^3/uL Absolute Basophils (0.0-0.2) 10^3/uL Sodium Potassium Chloride Carbon Dioxide Anion Gap BUN Cancelled Creatinine Cancelled Cancelled Est GFR (CKD-EPI 2020) Cancelled Cancelled Glucose Cancelled Calcium Magnesium Total Bilirubin AST ALT Alkaline Phosphatase Troponin I Total Protein Albumin TSH Range/Units 11/01/24 11/01/24 11/01/24 12:32 12:32 12:32 WBC (4.4-10.8) 10^3/uL RBC (4.36-5.78) 10^6/uL Hgb (13.5-17.5) g/dL Hct (40.0-50.0) % MCV (80-95) fL MCH (27.0-33.0) pg MCHC (32.0-36.0) % RDW (11.8-14.1) % Plt Count (130-400) 10^3/uL MPV (8.0-11.0) fL Immature Gran % % Neutrophils % % Lymphocytes % % Monocytes % % Eosinophils % % Basophils % % Nucleated RBC % (0.0-0.3) % Absolute Neutrophils (1.2-6.7) 10^3/uL Absolute Lymphocytes (1.2-3.4) 10^3/uL Absolute Monocytes (0.1-0.8) 10^3/uL Absolute Eosinophils (0.0-0.7) 10^3/uL Absolute Basophils (0.0-0.2) 10^3/uL Sodium Potassium Chloride Carbon Dioxide Anion Gap BUN Creatinine Est GFR (CKD-EPI 2020) Glucose Cancelled Calcium Cancelled Cancelled Magnesium Cancelled Total Bilirubin Cancelled Cancelled AST Cancelled ALT Alkaline Phosphatase Troponin I Total Protein Albumin TSH Range/Units 01/06/24 01/06/24 01/06/24 12:32 12:32 12:32 WBC (4.4-10.8) 10^3/uL RBC (4.36-5.78) 10^6/uL Hgb (13.5-17.5) g/dL Hct (40.0-50.0) % MCV (80-95) fL MCH (27.0-33.0) pg MCHC (32.0-36.0) % RDW (11.8-14.1) % Plt Count (130-400) 10^3/uL MPV (8.0-11.0) fL Immature Gran % % Neutrophils % % Lymphocytes % % Monocytes % % Eosinophils % % Basophils % % Nucleated RBC % (0.0-0.3) % Absolute Neutrophils (1.2-6.7) 10^3/uL Absolute Lymphocytes (1.2-3.4) 10^3/uL Absolute Monocytes (0.1-0.8) 10^3/uL Absolute Eosinophils (0.0-0.7) 10^3/uL Absolute Basophils (0.0-0.2) 10^3/uL Sodium Potassium Chloride Carbon Dioxide Anion Gap BUN Creatinine Est GFR (CKD-EPI 2020) Glucose Calcium Magnesium Total Bilirubin AST Cancelled ALT Cancelled Cancelled Alkaline Phosphatase Cancelled Cancelled Troponin I Cancelled Total Protein Cancelled Albumin TSH Range/Units 01/06/24 01/06/24 01/06/24 12:32 12:32 12:32 WBC (4.4-10.8) 10^3/uL RBC (4.36-5.78) 10^6/uL Hgb (13.5-17.5) g/dL Hct (40.0-50.0) % MCV (80-95) fL MCH (27.0-33.0) pg MCHC (32.0-36.0) % RDW (11.8-14.1) % Plt Count (130-400) 10^3/uL MPV (8.0-11.0) fL Immature Gran % % Neutrophils % % Lymphocytes % % Monocytes % % Eosinophils % % Basophils % % Nucleated RBC % (0.0-0.3) % Absolute Neutrophils (1.2-6.7) 10^3/uL Absolute Lymphocytes (1.2-3.4) 10^3/uL Absolute Monocytes (0.1-0.8) 10^3/uL Absolute Eosinophils (0.0-0.7) 10^3/uL Absolute Basophils (0.0-0.2) 10^3/uL Sodium Potassium Chloride Carbon Dioxide Anion Gap BUN Creatinine Est GFR (CKD-EPI 2020) Glucose Calcium Magnesium Total Bilirubin AST ALT Alkaline Phosphatase Troponin I Total Protein Cancelled Albumin Cancelled Cancelled TSH Cancelled Cancelled Range/Units 01/06/24 01/06/24 01/06/24 12:55 14:05 15:30 WBC (4.4-10.8) 10^3/uL RBC (4.36-5.78) 10^6/uL Hgb (13.5-17.5) g/dL Hct (40.0-50.0) % MCV (80-95) fL MCH (27.0-33.0) pg MCHC (32.0-36.0) % RDW (11.8-14.1) % Plt Count (130-400) 10^3/uL MPV (8.0-11.0) fL Immature Gran % % Neutrophils % % Lymphocytes % % Monocytes % % Eosinophils % % Basophils % % Nucleated RBC % (0.0-0.3) % Absolute Neutrophils (1.2-6.7) 10^3/uL Absolute Lymphocytes (1.2-3.4) 10^3/uL Absolute Monocytes (0.1-0.8) 10^3/uL Absolute Eosinophils (0.0-0.7) 10^3/uL Absolute Basophils (0.0-0.2) 10^3/uL Sodium 141 Potassium 4.0 Chloride 104 Carbon Dioxide 31.0 Anion Gap 6.0 BUN 14 Creatinine 1.2 Est GFR (CKD-EPI 2020) 66.28 Glucose 104 Calcium 9.4 Magnesium 2.0 Total Bilirubin 0.41 AST 23 ALT 23 Alkaline Phosphatase 80 Troponin I < 4 < 4 Cancelled Total Protein 7.2 Albumin 3.6 TSH 2.14 Quality:SDOH Health Related Social Needs: No Data to Display PFSH All Active Problems (Updated 01/06/24 @ 15:05 by WILBERTO Venegas) Vasovagal syncope (Acute) Rotator cuff tear, right (Acute) Bursitis of hip (Acute) RT hip pain, with Hx bursitis x years (Hx injections)(Hx rt hip injury 10yrs ago) Asthma (Chronic) PFT, 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 per [facility] Neuro.? Anxiety (Chronic) Hyperlipidemia (Acute) GERD (gastroesophageal reflux disease) (Chronic) Benign prostatic hyperplasia (Chronic) Chronic cough (Chronic) Raynauds disease (Acute) will turn white when outside .. recomm: vest/hat when outdoors [cristino gloves, per research], 05/2022, ik Hypertension (Chronic) Multiple nodules of lung (Chronic) Stable completed yearly from 8276-1086 Memory loss (Acute) MOCA , Mar 2021 .. poor short-term memory per Cardio notes. Myasthenia gravis (Acute) Acute Ocular MG, per Dr. PIZANO, 05/2022. Mestinon started/increased. [ ] Ophtho, [ ] [facility] [place] Neuro (Ab NEG, but Dx seems (+)) Ptosis of right eyelid (Acute) 08/09/22 [facility] [place] Neurology note Ocular myasthenia gravis (Acute) 08/09/22 [facility] [place] Neurology note Daily consumption of alcohol (Acute) Reduced, no wine, 2 ciders.. 09/03/22, [place] High risk medication use (Chronic) Medications to avoid in myasthenia gravis include antibiotics such as aminoglycosides, Bacitracin, Clindamycin, Quinolones, macrolides and Tetracycline; Antiarrhythmic medications are also contraindicated - Beta blockers and calcium channel blockers should be used with caution; Statins, quinine medications, Dilantin, [place] and antispasmodics that fall into the anticholinergic category should also be avoided; Inhaled anesthetics and neuromuscular blocking agents, including Botox should also be avoided. Dehydration (Acute) Tendency to drink coffee .. Onychomycosis (Acute) Dystrophy of nail due to trauma (Acute) Medical History PND (post-nasal drip) Family history of hypertension in father Family history of diabetes mellitus with ketoacidosis Elevated gluc in hosp, but WNL A1C (5.1)().. Mat & Paternal sides (unclear if ketoacidosis) Family history of breast cancer Mo/Maternal? 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 IBS (irritable bowel syndrome) Diet ctlld (immed diarrhea w/ Magn)(kaylin sauce)(high fiber foods) .. Vit D & Probiotic seems to help. Lyme disease (12/16/20) Doxy x 1 week <-- x2 ?? Fibromyalgia Surgical History H/O repair of rotator cuff (~06/10/22) Rupture of right supraspinatus tendon Right shoulder arthroscopy with rotator cuff repair (supraspinatus), biceps tenodesis, extensive debridement, and subacromial decompression 06/10/22 S/P right knee arthroscopy History of tonsillectomy (~1959) History of appendectomy (~1959) Social History Smoking/Tobacco Use Status: Former Tobacco Use Quit Date: 03/07/89 Tobacco: How many years used: 30 Quit status: quit date established Smoking risk assessment performed?: Yes Alcohol Intake: current Alcohol Intake frequency: 0-2 drinks per day Alcohol type: beer and other Drug use: Never Substance use type: does not use Counseling given: No Counseling provided: none Adopted: No Caregiver/Support person: No Foster care: No Household members: spouse Housing: house Communication Needs: None Education Level: high school Do you need help understanding health information?: Never current occupation: Retired Pets and animals: Yes Pets and animals: cat(s) Sexually active: Yes Do you think of yourself as: straight/heterosexual Current gender identity: male What is your relationship status?: How often do you talk on the phone with friends or family?: three or more times per week How often do you get together with friends or relatives?: three or more times per week Do you belong to any clubs or organized social groups?: no Panel score (0-1 are the most socially isolated patients): 2 What type of physical activity do you participate in: walking Duration: 45-60 minutes/day Frequency: daily Bonnie/Congregation: None Special bonnie needs: No Seatbelt use: always Drive intox or ride w/intox tram driver: No Do you feel safe at home: Yes Do you feel safe in your relationship?: Yes Additional Social history: Unable to assess privately
[2024-01-06 12:43] LABS: Abs Immature Grans 0.01 10^3/uL (0.0-0.06); Absolute Basophil Count 0.05 10^3/uL (0.0-0.2); Absolute Eosinophil Count 0.17 10^3/uL (0.0-0.7); Absolute Lymphocyte Count 1.08 10^3/uL (1.2-3.4); Absolute Monocyte Count 0.59 10^3/uL (0.1-0.8); Absolute Neutrophil Count 3.56 10^3/uL (1.2-6.7); Basophils % 0.9 %; Eosinophils % 3.1 %; HCT 47.4 % (40.0-50.0); HGB 16.2 g/dL (13.5-17.5); Immature Grans % 0.2 %; Lymphocytes % 19.8 %; MCH 30.2 pg (27.0-33.0); MCHC 34.2 % (32.0-36.0); MCV 88 fL (80-95); MPV 11.2 fL (8.0-11.0); Monocytes % 10.8 %; Neutrophils % 65.2 %; Platelet Count 221 10^3/uL (130-400); RBC 5.36 10^6/uL (4.36-5.78); RDW 11.9 % (11.8-14.1); RDW-SD 38.3 fL; WBC 5.46 10^3/uL (4.4-10.8)
[2024-01-06 13:25] LABS: ALT 23 U/L (16-63); AST 23 U/L (15-37); Albumin 3.6 g/dL (3.4-5.0); Alkaline Phosphatase 80 U/L (46-116); BUN 14 mg/dL (7-18); Bilirubin, Total 0.41 mg/dL (0.2-1.0); CREATININE 1.2 mg/dL (0.70-1.30); Calcium 9.4 mg/dL (8.5-10.1); Chloride 104 mmol/L (98-107); Estimated GFR 66.28 (mL/min/1.73m2); Glucose 104 mg/dL (74-106); Sodium 141 mmol/L (136-145); TSH (W/Ref FT4) 2.14 uIU/mL (0.36-3.74); Total Protein 7.2 g/dL (6.4-8.2); Troponin I < 4 ng/L (<or=76)
[2024-01-06] MEDS: Normal Saline - Diluent 50 ML VIAL IJ (13:30)
[2024-01-06] MEDS: Omnipaque 350 MG/ML 100 ML BTL 70 ML IJ (13:37)
--- NOTE | 2024-01-06 13:55 | DI.CT_ITS ---
Exam(s) CT BRAIN NECK CTA EXAM: CT BRAIN NECK CTA CLINICAL HISTORY: dizziness, syncope, dysmetria L UE. TECHNIQUE: Imaging Protocol: Axial CT angiography was performed with multi-slice acquisition and mu lti-planar and MIP reconstructions. CONTRAST MATERIAL: Intravenous: Omnipaque 350 Contrast volume:100 ml COMPARISON: CT CT HEAD - STROKE PROTOCOL from 04/16/2022 FINDINGS: CT Head W/O and W contrast: Ventricles and Extra axial spaces: Normal in size and morphology for the patient's age. Hemorrhage: None. Cerebral parenchyma: No evidence of acute infarct or mass. Midline shift: None. Brainstem/Cerebellum: No acute findings.. Calvarium: Normal. Visualized Paranasal sinuses/Mastoids: Clear. Soft Tissues: Unremarkable. Enhancement: Normal. CTA Brain W: Internal Carotid Arteries: Petrous: Normal. Cavernous: Normal. Cerebral: Normal. Middle Cerebral Arteries: Right: No aneurysm, occlusion or significant stenosis. Left: No aneurysm, occlusion or significant stenosis. Anterior Cerebral Arteries: Right: No aneurysm, occlusion or significant stenosis. Left: No aneurysm, occlusion or significant stenosis. Posterior cerebral Arteries: Right: No aneurysm, occlusion or significant stenosis. Left: No aneurysm, occlusion or significant stenosis. Vertebral Arteries: Right: No aneurysm, occlusion or significant stenosis. Left: No aneurysm, occlusion or significant stenosis. Basilar Artery: No aneurysm, occlusion or significant stenosis. CTA Neck W: Common Carotid: Right: Minimal calcific plaque at bulb. No dissection, occlusion or significant stenosis. Left: No dissection, occlusion or significant stenosis. External Carotid: Right: No dissection, occlusion or significant stenosis. Left: No dissection, occlusion or significant stenosis. Internal Carotid: Right: Mild plaque proximally. No dissection, occlusion or significant stenosis. Severe tortuosity midportion. Left: Small focus of calcific plaque proximally. No dissection, occlusion or significant stenosis. Severe tortuosity distally. Vertebral Artery: Right: No dissection, occlusion or significant stenosis. Left: No dissection, occlusion or significant stenosis. Lung Apices: No acute findings. Bones: No acute abnormality. Soft Tissues: Normal. IMPRESSION: 1. CTA brain: Normal CTA examination of the [place]. 2. Head CT: Unremarkable CT Head. 3. CTA neck: Mild plaque at the common carotid bulbs and proximal internal carotid arteries. No sign ificant stenosis or dissection. Bilateral internal carotid arteries are tortuous. RADIATION DOSE DELIVERED: Total DLP DATA REPOSITORY: All CT scans at this facility are submitted to the National Radiology Data Registry (NRDR) Dose Index Registry (DIR) with the [employer] (ACR). RADIATION OPTIMIZATION: All CT scans at this facility use at least one of these dose optimization te chniques: automated exposure control; mA and/or kV adjustment per patient size (includes targeted exa ms where dose is matched to clinical indication); or iterative reconstruction.
[2024-01-06 14:27] LABS: Troponin I < 4 ng/L (<or=76)
== END 2024-01-06 15:16 | disposition home or self-care (01) ==
PROVIDERS: Emergency Provider Physician Assistant; PCP Student in an Organized Health Care Education/Training Program
DX: R55 Syncope and collapse (principal); Z79.82 Long term (current) use of aspirin; Z87.891 Personal history of nicotine dependence
CPT/HCPCS: 36415; 70496; 70498; 80053; 93005; 99285; 71046; 83735; 84443; 84484; 85025; 93010; 99284; J3490

== ENCOUNTER 2024-01-13 00:33 | Outpatient (CLI) | payer MEDICARE, OTHER, SELFPAY ==
--- NOTE | 2024-01-13 07:30 | DI.US_ITS ---
APPROVED REPORT EXAM: Comprehensive 2D, Doppler, and color-flow Echocardiogram Patient Location: Out-Patient Science Liaison: Noemy Hanson RDCS (AE) Indications: Syncope Other Information Study Quality: Adequate Conclusion Normal left ventricular wall thickness and chamber size. Ejection fraction is 55%. Wall motion is n ormal Normal right ventricular size and function Both atria are normal in size There is no structural or hemodynamically significant valvular disease Estimated right ventricular systolic pressure is 21 mmHg Wall motion Left Ventricle The left ventricle is normal size. The left ventricular systolic function is normal. The left ventric ular ejection fraction is within the normal range. There is normal left ventricular wall thickness. T here is normal LV segmental wall motion. There is no ventricular septal defect visualized. LVEF is 55 %. Right Ventricle The right ventricle is normal size. The right ventricular systolic function is normal. Atria The left atrium size is normal. The right atrium size is normal. The interatrial septum is intact wit h no evidence for an atrial septal defect. Aortic Valve The aortic valve is normal in structure. Aortic valve is trileaflet. There is no aortic valvular sten osis. No aortic regurgitation is present. Mitral Valve The mitral valve is normal in structure. No evidence of mitral valve stenosis. Trace mitral regurgita tion. Tricuspid Valve The tricuspid valve is normal in structure. There is no tricuspid valve stenosis. Trace to mild tricu spid regurgitation. The RVSP is 20.7 mmHg. Pulmonic Valve The pulmonary valve is normal in structure. There is no pulmonic valvular stenosis. Trace pulmonic re gurgitation. Great Vessels The aortic root is normal in size. The ascending aorta is normal in size. Aortic arch is normal in ca liber. IVC is normal in size and collapses >50% with inspiration. Pericardium There is no pericardial effusion. 2D Dimensions IVSD d PLAX 1.00 cm M: 0.6-1.2 Ao Root d 3.62 cm M: 3.1 - 3.7 LVPW d PLAX 1.00 cm M: 0.6 - 1.2 Ao Asc Diam d 3.49 cm M: 2.6 - 3.4 LVID d PLAX 4.04 cm M: 4.2 - 5.8 LVDs 2.90 cm M: 2.5 - 4.0 LV EF Teichholz 55.1 % FS 28.23 % LV EDV (Teich) 71.7 mL LV ESV (Teich) 32.2 mL M-Mode TAPSE 2.05 cm (M/F) >1.7 Auto EF LV EDV A4C 105.5 mL LV EDV A2C 103.7 mL LV EDV BP 106.0 mL LV ESV A4C 46.8 mL LV ESV A2C 47.1 mL LV ESV BP 47.1 mL LVEF(%) A4C 55.7 % LVEF(%) A2C 54.5 % LVEF(%) BP 55.6 % LV SV A4C 58.8 ml LV SV A2C 56.6 ml LV SV BP 58.9 ml LV CO A4C 4.7 L/min LV CO A2C 4.6 L/min LV CO BP 4.6 L/min HR A4C 80.72 BPM HR A2C 80.50 BPM LV EDV Index (BP) LA Volume LA Length A4C 4.0 cm LA Length A2C 4.1 cm LA Area A4C s 10.90 cm2 LA Area A2C s 11.22 cm2 LA Vol A4C A-L 25.26 mL LA Vol A2C A-L 26.04 mL LA Vol Biplane A-L 26.0 mL LA Vol/BSA A4C A-L LA Vol/BSA A2C A-L LA Vol/BSA BP A-L 12.3 mL/m2 LA Vol A4C MOD 21.2 mL LA Vol A2C MOD 24.8 mL LA Vol BP MOD 23.1 mL RA Volume RA Area A4C 12.4 cm2 RA ESV A4C (A-L) 30.0mL RA Vol/BSA A4C A-L RA Length A4C 4.3 cm RA ESV A4C (MOD) 27.3mL LV Diastology MV E' medial 0.056 (>0.07 m/s) MV E Vmax 0.72 (0.4-1.3 m/s) MV E/E' MED 12.88 (<14) MV A Vmax 0.85 (0.4-1.3 m/s) MV E' lateral 0.103 (>0.1 m/s) E/A Ratio 0.8 MV E/E' LAT 7.05 (<14) MV E' Average 0.079 m/s MV E/E'(average) 9.11 Aortic Valve AoV Vmax 1.45 m/s LVOT Vmax 1.20 m/s AoV Peak Grad 8.4 mmHg LVOT Peak Grad 5.8 mmHg AoV Area (Vmax) 2.52 cm2 LVOT VTI 0.262 m AoV VTI 0.289 m LVOT Mean Grad 3.8 mmHg AoV Mean Emil. 1.04 m/s LVOT SV 79.40 mL AoV Mean Grad 5.0 mmHg LVOT Diam s 1.95 cm AoV Area (VTI) 2.74 cm2 AV Regurg Peak Gr. 8.36 mmHg Velocity Ratio 0.83 Mitral Valve MV DT 210 (160-240 msec) MV Vmax TIPS 0.81 m/s MV Mean Grad 1.5 (<2mmHg) MV VTI 0.230 m Pulmonary Valve PV Vmax 1.12 (0.5-1.5 m/s) RVOT Vmax 0.66 m/s PV Peak Grad 5.1 mmHg RVOT Peak Gr. 1.7 mmHg PV Mean Emil 0.72 m/s RVOT VTI 0.154 m PV Mean Grad 2.4 mmHg RVOT Mean Gr. 0.9 mmHg Tricuspid Valve RA Pressure 3.00 mmHg TR Vmax 2.10 m/s TV S' 0.14 m/s TR Peak Grad 17.7 mmHg RVSP (TR) 20.7 mmHg
== END 2024-01-13 00:53 ==
LOC: DI 00:33
PROVIDERS: PCP Student in an Organized Health Care Education/Training Program; Visit Provider Family Medicine
DX: R55 Syncope and collapse (principal)
CPT/HCPCS: 93306

== ENCOUNTER 2024-01-16 00:55 | Outpatient (CLI) | payer MEDICARE, OTHER, SELFPAY ==
--- NOTE | 2024-01-16 06:00 | ETT_ITS ---
APPROVED REPORT Exam: Exercise Treadmill Patient Location: Out-Patient Room/Bed: Stress Nurse: EDITH Leon and Julián Stephen RN Ordering Provider:BRIANNA LINO, Contact Number: [phone] BMI: 27.25 Baseline Rhythm: Sinus Rhythm. Indications: Syncope; Has Baseline Dyspnea on Exertion. Medical History Medical History: Asthma; Anxiety; GERD; Hyperlipidemia (pt. denies having this); Hypertension (pt. de nies having this); Alcohol Dependence; COPD; Fibromyalgia; Myasthenia Gravis. Cardiac Medications: Albuterol Sulfate; Aspirin; Omeprazole; Nortriptyline; Donepezil; Fluoxetine; Me mantine; Pyridostigmine; Cyclobenzaprine. Allergies: Aminoglycosides; Diphenhydramine; Macrolide Antibiotics; Magnesium. Cardiac Risk Factors: Family Hx; Hyperlipidemia (pt. denies having this); Hypertension (pt. denies barton ving this); Asthma; COPD; Former Smoker. Previous Cardiac Procedures: None. Pretest Chest Pain Characteristics: None. Exercise History: Indeterminate. Physical Disabilities: None. Lung Sounds: Clear bilaterally throughout, anterior and posterior. Heart Sounds: S1 and S2 auscultated. Stress Test Details Test: Exercise stress testing was performed using a Guille protocol. Rest Stress HR Resting HR Supine: 69 bpm Max Heart Rate (APMHR): 153 bpm Resting HR Standin bpm Target HR (85% APMHR): 130 bpm Max HR Achieved: 130 bpm % of APMHR: 85 Recovery HR: 85 bpm HR response to stress: Normal HR response to stress. BP Resting BP Supine: 112/76 mmHg Resting BP Standin/82 mmHg Max BP: 170/72 mmHg Recovery BP: 108/72 mmHg BP response to stress: Normal blood pressure response to stress. ECG Resting ECG: Sinus Rhythm. Ectopy: None. Stress ECG: Sinus Tachycardia. ST Change: No significant ST segment changes noted. Arrhythmia: None. Recovery ECG: Sinus Rhythm. Recovery ST Change: No significant ST segment changes noted. Recovery Arrhythmia: None. Clinical Reason for Termination: Fatigue; Dyspnea; Dizziness. Stress Symptoms: General Fatigue; Dyspnea; Dizziness. Exercise duration: 05 min55 sec Highest Stage Reached: Stage 2: 2.5 mph at 12% grade. Exercise capacity: 7.05 METs Angina Score: None [place] Treadmill Score: 5.5 Rate Pressure Product: [id number] Stress ECG Conclusion 1. Resting electrocardiogram is normal 2. Patient exercised on the Guille protocol completed workload of 7 METS 3. Normal heart rate blood pressure response to exercise. Patient achieved 85% of predicted heart ra te for age 4. There was no electrocardiographic evidence of myocardial ischemia 5. There were no dysrhythmias [place] Treadmill Score is 5.5 which is Low risk. Stress Test Summary STAGE Time (mins) Speed (mph) Grade (%) HR BP SpO2 SYMPTOMS METS Supine 69 112/76 96 Standing 88 122/82 96 1 3 1.7 10 121 130/80 92 Pt. c/o mild shortness of breath. 4.5 2 6 2.5 12 130 Pt. c/o moderate shortness of breath, mild dizziness, and generalized fatigu e. 7 1 min recovery 115 170/72 98 Pt. c/o moderate shortness of breath, mild dizziness, and gene ralized fatigue. 3 min recovery 103 168/78 Pt. c/o mild shortness of breath, minimal dizziness, and states fatigue is resolving. 6 min recovery 92 144/76 98 Pt. denies shortness of breath, dizziness, or fatigue. 9 min recovery 85 108/72 96 Pt. states all symptoms have resolved back to baseline. Pt. was conversing pleasantly with nursing staff upon leaving the Stress Lab. Pt. left ambulatory in no apparent distress.
== END 2024-01-16 01:15 ==
LOC: DI 00:55
PROVIDERS: PCP Student in an Organized Health Care Education/Training Program; Visit Provider Family Medicine
DX: R06.09 Other forms of dyspnea (principal); R55 Syncope and collapse
CPT/HCPCS: 93016; 93018; 93017

== ENCOUNTER 2024-01-20 09:10 | Outpatient (RCR) | payer MEDICARE, OTHER, SELFPAY ==
--- NOTE | 2024-01-26 15:02 | W.HOLTRPT ---
Date of service: 01/26/24 Time of Service: 15:02 Holter Monitor Report Referring Provider:: Yousif Fermin Indications:: Syncope Holter Monitor Note: This is a 48-hour Holter monitor Rhythm throughout was sinus with an average heart rate of 84. Minimum was 53, maximum 120 A total of 4 PVCs were recorded. There were very rare isolated atrial premature beats There was no atrial fibrillation, no high-grade AV block, no pauses greater than 3 seconds There were no symptoms reported
== END 2024-02-04 23:59 | disposition home or self-care (01) ==
LOC: CARDOPNVT 09:10
PROVIDERS: PCP Student in an Organized Health Care Education/Training Program; Referring Provider Family Medicine; Visit Provider Internal Medicine Cardiovascular Disease
DX: R55 Syncope and collapse (principal); I49.3 Ventricular premature depolarization
CPT/HCPCS: 93227; 93225; 93226

== ENCOUNTER → 2024-01-24 11:30 | Outpatient (BNVA) | payer MEDICARE, OTHER, SELFPAY | PROVIDERS: PCP Student in an Organized Health Care Education/Training Program; Referring Provider Student in an Organized Health Care Education/Training Program; Visit Provider Physician Assistant Surgical | DX: J45.909 Unspecified asthma, uncomplicated (principal); K21.9 Gastro-esophageal reflux disease without esophagitis; R91.8 Other nonspecific abnormal finding of lung field; Z23 Encounter for immunization | CPT/HCPCS: 90677; 99214; G0009 ==

== ENCOUNTER → 2024-04-17 10:48 | Outpatient (BNVA) | payer MEDICARE, OTHER, SELFPAY | PROVIDERS: PCP Family Medicine; Visit Provider Nurse Practitioner Adult Health | DX: G31.84 Mild cognitive impairment of uncertain or unknown etiology (principal) | CPT/HCPCS: 99214 ==

== ENCOUNTER → 2024-05-09 08:09 | Outpatient (BNVA) | payer MEDICARE, OTHER, SELFPAY | PROVIDERS: PCP Family Medicine; Referring Provider Family Medicine; Visit Provider Psychiatry & Neurology Neurology | DX: I10 Essential (primary) hypertension (principal); H53.2 Diplopia; R41.3 Other amnesia | CPT/HCPCS: 99214 ==

== ENCOUNTER 2024-07-04 15:10 | Outpatient (CLI) | payer MEDICARE, OTHER, SELFPAY ==
--- NOTE | 2024-07-04 15:00 | DI.RAD_ITS ---
Exam(s) XR KNEE RT 4V AP,LAT,KIRILL,PAT EXAM: XR KNEE RT 4V AP,LAT,KIRILL,PAT CLINICAL HISTORY: RIGHT KNEE PAIN. TECHNIQUE: 2D digital imaging was performed. Three views. COMPARISON: No exams were available for comparison FINDINGS: BONES: No acute fracture is present. There is mild deformity at the proximal fibular which could be related to an old fracture. No bony destructive lesion is seen. JOINTS: The knee is normally aligned. There is mild narrowing of the medial femoral tibial joint spa ce. Lateral femoral tibial joint and patellofemoral joint spaces are maintained. No joint effusion is seen. SOFT TISSUE: Normal. IMPRESSION: Mild degenerative changes of the medial femoral tibial joint. DATA REPOSITORY: RADIATION DOSE DELIVERED:
== END 2024-07-04 15:11 | disposition home or self-care (01) ==
LOC: DIORS 15:11
PROVIDERS: PCP Family Medicine; Referring Provider Family Medicine; Visit Provider Physician Assistant
DX: M76.51 Patellar tendinitis, right knee; M17.11 Unilateral primary osteoarthritis, right knee; M70.51 Other bursitis of knee, right knee
CPT/HCPCS: 99213; 73564

== ENCOUNTER → 2024-11-07 08:12 | Outpatient (BNVA) | payer MEDICARE, OTHER, SELFPAY | PROVIDERS: PCP Family Medicine; Referring Provider Family Medicine; Visit Provider Psychiatry & Neurology Neurology | DX: R41.3 Other amnesia (principal); H53.2 Diplopia; J45.909 Unspecified asthma, uncomplicated | CPT/HCPCS: 99214 ==